=== PATIENT | male | born 1935 | race Hispanic/Latino ===

== ENCOUNTER 2016-08-02 17:21 | Inpatient (IN) | payer MEDICARE ==
[2016-08-02] MEDS ORDERED: Albuterol-Ipratrop 3 mg / 0.5 (3 ml) UD ONE (17:44)
[2016-08-02] MEDS ORDERED: cefTRIAXone IV 1 gm in Dextros 50 ML IV STA (17:55)
[2016-08-02] MEDS ORDERED: Azithromycin 500mg/250ML NS 500 MG/250 ML BAG IV STA (17:55)
[2016-08-02 17:56] VITALS: BMI 36.1
[2016-08-02] MEDS ORDERED: Albuterol-Ipratrop 3 mg / 0.5 (3 ml) UD IH STA (17:56)
--- NOTE | 2016-08-02 18:24 | C.PDOC ---
History Of Present Illness The patient, a 80 y/o male whose PMHx includes COPD, presents to the ED for evaluation after being sent from his PMD's office. Patient states she fell and injured his right shoulder and upper back a couple days ago. Patient had also been experiencing cough and chest congestion, so he went to PMD today for evaluation. At the PMD's office, patient was coughing with production of thick, yellow-green sputum with a temperature of 101. Patient was also wheezing. Patient had visible shortness of breath with a respiratory rate of 20 and pulse ox of 90 on 4L O2. Patient has PMHx of trans-aortic valve replacement, and post- op left-sided chronic pleural effusion. 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 X-ray imaging was unsuccessful, so patient presents to the ED for further evaluation. Patient denies fever, chills, nausea, vomiting. Time Seen by Provider: 08/02/16 17:36 Chief Complaint (Nursing): Shortness Of Breath History Per: Patient History/Exam Limitations: no limitations Onset/Duration Of Symptoms: Hrs Current Symptoms Are (Timing): Still Present Associated Symptoms: Fever, Productive Cough Past Medical History Reviewed: Historical Data, Nursing Documentation, Vital Signs Vital Signs: Last Vital Signs Temp 99.1 F 08/02/16 20:46 Pulse 61 08/02/16 20:46 Resp 16 08/02/16 20:46 BP 124/56 L 08/02/16 20:46 Pulse Ox 95 08/02/16 20:46 - Medical History PMH: CHF, COPD Surgical History: Appendectomy, CABG, Cholecystectomy, Pacemaker Other Surgeries: TAVR - [facility] Procedures NEBULIZER THERAPY (04/02/07) RT & LT HEART ANGIOCARD (03/10/14) RT/LEFT HEART CARD CATH (03/10/14) Family History: States: Unknown Family Hx - Social History Hx Tobacco Use: No Hx Alcohol Use: No Hx Substance Use: No - Immunization History Hx Tetanus Toxoid Vaccination: Yes Hx Influenza Vaccination: Yes Hx Pneumococcal Vaccination: Yes Review Of Systems Except As Marked, All Systems Reviewed And Found Negative. Respiratory: Positive for: Cough, Wheezing, Other (+chest congestion ) Gastrointestinal: Negative for: Nausea, Vomiting Musculoskeletal: Positive for: Shoulder Pain (right), Back Pain (upper ) Physical Exam - Physical Exam Appears: Non-toxic, No Acute Distress Skin: Warm, Dry, Ecchymosis (over right scapular region ) Head: Atraumatic, Normacephalic Eye(s): bilateral: Normal Inspection, PERRL, EOMI Ear(s): Bilateral: Normal Nose: Normal, No Discharge Oral Mucosa: Moist Throat: Normal, No Erythema, No Exudate Neck: Supple Chest: Symmetrical, No Deformity, No Tenderness Cardiovascular: Rhythm Regular, No Murmur Respiratory: Decreased Breath Sounds (bilaterally ), No Rales, No Rhonchi, Wheezing (diffuse, inspiratory and expiratory ) Gastrointestinal/Abdominal: Soft, No Tenderness, No Guarding, No Rebound Back: Normal Inspection, No Vertebral Tenderness, No Paraspinal Tenderness Extremity: Normal ROM (right shoulder ), Capillary Refill (less than 2 seconds ) Neurological/Psych: Oriented x3, Normal Speech, Normal Cognition Gait: Steady ED Course And Treatment - Laboratory Results Result Diagrams: 08/02/16 18:18 08/02/16 18:18 Lab Interpretation: Abnormal (Mild anemia Hgb 10.8, Hct 33.7, BUN 30 with normal Cr. Bili and AST slightly elevated, ABG PO2 52, PCO2 51 with normal pH 7.44) ECG: Interpreted By Nv ECG Rhythm: Sinus Rhythm, R BBB ECG Interpretation: No Acute Changes O2 Sat by Pulse Oximetry: 88 (increased on O2) Pulse Ox Interpretation: Abnormal - Radiology CXR: Interpreted by Nv CXR Interpretation: Yes: Cardiomegaly, Other (chronic left pleural effusion) Progress Note: labs, CXR, EKG ordered and reviewed. Patient received Zithromax IV, Rocephin IV, and IV fluids. Reevaluation Time: 19:22 Reassessment Condition: Improved - Physician Consult Information Physician Contacted: Dieudonne Corbett Outcome Of Conversation: Case discussed with Dr Corbett. Patient to be admitted to hospital for cardiac evaluation and treatment of COPD exacerbation with lower respiratory infection. Case referred to Dr Reyna for ICU/ Pulmonary evaluation and Hospitalist for admission. Disposition - Disposition Disposition: HOSPITALIZED Disposition Time: 20:00 Condition: STABLE - POA Present On Arrival: None - Clinical Impression Clinical Impression: Chr obstructive pulmonary disease w/ acute lower respiratory infxn - Scribe Statement The provider has reviewed the documentation as recorded by the Scribe (Fatoumata Pena) Provider Attestation: All medical record entries made by the Scribe were at my direction and personally dictated by me. I have reviewed the chart and agree that the record accurately reflects my personal performance of the history, physical exam, medical decision making, and the department course for this patient. I have also personally directed, reviewed, and agree with the discharge instructions and disposition.
[2016-08-02 18:26] LABS: BASO % 0.8 % (0.0-2.0); EOS # 0.1 K/uL (0.0-0.7); EOS % 1.8 % (0.0-4.0); HEMATOCRIT 33.7 % (35.0-51.0); LYMPH # 0.8 K/uL (1.0-4.3); LYMPH % 12.4 % (20.0-40.0); MEAN CORPUSCULAR HEMOGLOBIN 30.1 pg (27.0-31.0); MEAN CORPUSCULAR HGB CONC 32.2 g/dL (33.0-37.0); MEAN PLATELET VOLUME 7.9 fL (7.2-11.7); MONO # 0.6 K/uL (0.0-0.8); MONO % 9.3 % (0.0-10.0); RED CELL DISTRIBUTION WIDTH 17.3 % (11.5-14.5); WHITE BLOOD COUNT 6.3 K/uL (4.8-10.8)
[2016-08-02 18:28] LABS: MEAN CELL VOLUME 93.5 fL (80.0-94.0)
[2016-08-02 18:29] LABS: CHLORIDE 89 mmol/L (98-107); POTASSIUM 4.6 mmol/L (3.6-5.2); SODIUM 133 mmol/L (132-148)
[2016-08-02 18:31] LABS: BILIRUBIN,TOTAL 1.8 mg/dL (0.2-1.3); CARBON DIOXIDE 34 mmol/L (22-30); GFR AFRICAN-AMERICAN > 60
[2016-08-02 18:32] LABS: ALB/GLOB RATIO 1.2 (1.0-2.1); ALKALINE PHOSPHATASE 64 U/L (38-126); ALT/SGPT 34 U/L (21-72); AST/SGOT 73 U/L (17-59); BLOOD UREA NITROGEN 30 mg/dL (9-20); CALCIUM 8.4 mg/dl (8.6-10.4); GLUCOSE,RANDOM 122 mg/dL (75-110); TOTAL PROTEIN 7.7 g/dL (6.3-8.3)
[2016-08-02 18:37] LABS: ABG ALLEN TEST POS; ARTERIAL BLOOD HGB O2 SAT 89.3 % (95.0-98.0); CARBOXYHEMOGLOBIN 1.7 % (0.5-1.5); DRAW SITE RRA; HHB 8.5 % (0.0-5.0); METHEMOGLOBIN 0.4 % (0.0-3.0)
[2016-08-02] MEDS ORDERED: cefTRIAXone IV 1 gm in Dextros 50 ML IVPB ONE (18:44)
[2016-08-02] MEDS ORDERED: Azithromycin 500mg/250ML NS 0 MG/0 ML BAG IVPB ONE (19:54)
[2016-08-02] MEDS ORDERED: Azithromycin 500mg/250ML NS 500 MG/250 ML BAG IVPB ONE (20:02)
--- NOTE | 2016-08-02 20:09 | CP.PCM.HP ---
<Arnoldo Peterson - Last Filed: 08/02/16 22:59> History of Present Illness - History of Present Illness History of Present Illness: CC: "difficulty breathing, fever, and cough" 80 M with PMH of CHF, COPD, s/p pacemaker/defibrillator, CAD with stents, CABG, valve replacement, HTN, HLD presents to [facility] ED with complaint of difficulty breathing, fever, and cough for 4 days. Patient stated that he has had worsening symptoms since about Sunday. 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 Patient stated that he never had these symptoms before but his stated that he was treated for bronchitis last year. Patient currently denying any pain. Patient sleeps at night with head elevated at about 30 degrees. He does not know when he had last ECHO. He can only ambulate 10-20 feet or 1 flight of stairs before getting fatigued. Admits to fever/chills, sob, palpitations, LE edema, cough. Denies cp, abd pain, n/v/d, constipation, incontinence, numbness/tingling. PMD: Dr. Plunkett Cardio: Dr. Donnelly Pulm: Dr. 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 absent: Headache - EENT Eyes: absent: Diplopia, Discharge, Dry Eye Ears: absent: Decreased Hearing, Ear Discharge, Ear Pain Nose/Mouth/Throat: absent: Nasal Congestion, Nasal Discharge, Nose Pain - Cardiovascular Cardiovascular: Dyspnea, Dyspnea on Exertion, Edema, Palpitations. absent: Chest Pain, Chest Pain at Rest, Chest Pain with Activity - Respiratory Respiratory: Cough, Dyspnea, Dyspnea on Exertion, Wheezing. absent: Hemoptysis - Gastrointestinal Gastrointestinal: absent: Constipation, Diarrhea, Fecal Incontinence, Nausea, Vomiting - Genitourinary Genitourinary: absent: Change in Urinary Stream, Difficulty Urinating, Dysuria - Musculoskeletal Musculoskeletal: absent: Arthralgias, Myalgias, Numbness, Tingling - Integumentary Integumentary: absent: Bleeding Lesions, Changing Lesions, Lesions, New Lesions , Pruritus - Neurological Neurological: Weakness. absent: Dizziness, Numbness, Loss of Vision, Sensory Deficit, Syncope, Tingling, Tremor, Vertigo - Psychiatric Psychiatric: absent: Anxiety, Depression, Homicidal Ideation, Suicidal Ideation - Endocrine Endocrine: Fatigue, Palpitations. absent: Polydipsia, Polyphagia, Polyuria - Hematologic/Lymphatic Hematologic: absent: Easy Bleeding, Easy Bruising, Lymphadenopathy Past Patient History - Past Social History Smoking Status: Former Smoker - CARDIAC Hx Congestive Heart Failure: Yes - PULMONARY Hx Chronic Obstructive Pulmonary Disease (COPD): Yes - MUSCULOSKELETAL/RHEUMATOLOGICAL Hx Falls: No - PSYCHIATRIC Hx Substance Use: No - SURGICAL HISTORY Hx Appendectomy: Yes Hx Cholecystectomy: Yes Hx Coronary Artery Bypass Graft: Yes - ANESTHESIA Hx Anesthesia: Yes Hx Anesthesia Reactions: No Hx Malignant Hyperthermia: No Meds Allergies/Adverse Reactions: Allergies Allergy/AdvReac Type Severity Reaction Status Date / Time No Known Allergies Allergy Verified 08/02/16 17:53 Physical Exam - Constitutional Appears: No Acute Distress - Head Exam Head Exam: ATRAUMATIC, NORMOCEPHALIC - Eye Exam Eye Exam: EOMI, Normal appearance Pupil Exam: PERRL - ENT Exam ENT Exam: Mucous Membranes Moist - Neck Exam Neck exam: Positive for: Normal Inspection - Respiratory Exam Respiratory Exam: Clear to Auscultation Bilateral, NORMAL BREATHING PATTERN - Cardiovascular Exam Cardiovascular Exam: REGULAR RHYTHM, +S1, +S2 - GI/Abdominal Exam GI & Abdominal Exam: Normal Bowel Sounds, Soft. absent: Distended, Guarding, Rebound, Rigid, Tenderness - Extremities Exam Extremities exam: Positive for: normal capillary refill, pedal edema, pedal pulses present - Back Exam Back exam: absent: CVA tenderness (L), CVA tenderness (R) - Neurological Exam Neurological exam: Alert, CN II-XII Intact, Oriented x3 - Psychiatric Exam Psychiatric exam: Normal Affect, Normal Mood - Skin Skin Exam: Dry, Intact, Normal Color, Warm Results - Vital Signs Recent Vital Signs: Last Vital Signs Temp 99.2 F 08/02/16 17:45 Pulse 76 08/02/16 17:45 Resp 20 08/02/16 18:51 BP 113/60 08/02/16 19:30 Pulse Ox 88 L 08/02/16 20:01 - Labs Result Diagrams: 08/02/16 18:18 08/02/16 18:18 Labs: Laboratory Results - last 24 hr 08/02/16 08/02/16 08/02/16 18:18 18:18 18:30 WBC 6.3 RBC 3.60 L Hgb 10.8 L D Hct 33.7 L MCV 93.5 D MCH 30.1 MCHC 32.2 L RDW 17.3 H Plt Count 208 MPV 7.9 Neut % (Auto) 75.7 H Lymph % (Auto) 12.4 L [place] % (Auto) 9.3 Eos % (Auto) 1.8 Baso % (Auto) 0.8 Neut # 4.8 Lymph # 0.8 L [place] # 0.6 Eos # 0.1 Baso # 0.0 Puncture Site Rra pCO2 51 H pO2 52 L HCO3 31.9 H ABG pH 7.44 ABG Total CO2 36.2 H ABG O2 Saturation 91.3 L ABG Base Excess 9.1 H ABG Hemoglobin 10.6 L ABG Carboxyhemoglobin 1.7 H POC ABG HHb (Measured) 8.5 H ABG Methemoglobin 0.4 Yahir Test Pos A-a O2 Difference 55.0 Respiratory Index 1.1 Hgb O2 Saturation 89.3 L FiO2 24.0 Sodium 133 Potassium 4.6 Chloride 89 L Carbon Dioxide 34 H Anion Gap 15 BUN 30 H Creatinine 1.1 Est GFR ( Amer) > 60 Est GFR (Non-Af Amer) > 60 Random Glucose 122 H Calcium 8.4 L Total Bilirubin 1.8 H AST 73 H D ALT 34 Alkaline Phosphatase 64 Total Protein 7.7 Albumin 4.1 Globulin 3.5 Albumin/Globulin Ratio 1.2 Assessment & Plan - Assessment and Plan (Free Text) Plan: 1. Dyspnea CHF exacerbation vs COPD exacerbation Telemetry KYA x 3 Cardio consult, Dr. Corbett, help appreciated Pulm consult, Dr. Reyna, help appreciated ECHO CXR Tylenol 650 mg PO Q6H PRN Duoneb 3 ml INH RQ6 Azithromycin 500 mg IVPB daily Rocephin 1 gm IVPB Q12H Lasix 40 mg PO daily Robitussin 200 mg PO Q4H PRN Solu-medrol 40 mg IVP Q8H Theophylline 200 mg PO daily Blood culture High flow O2 via NC HTN Lasix 40 mg PO daily CAD with stents Plavix 75 mg PO daily HLD [place] 3 1 gm PO BID Crestor 5 mg PO HS Hypothyroidism f/u TSH/T4 Gout Allopurinol 300 mg PO daily Prophylactic measures Lovenox 40 mg SC daily Scds contraindicated Protonix 40 mg IVP daily HHD <Robert Johnson - Last Filed: 08/03/16 06:19> Results - Vital Signs Recent Vital Signs: Last Vital Signs Temp 98 F 08/03/16 04:50 Pulse 61 08/03/16 05:20 Resp 20 08/03/16 04:50 BP 108/64 08/03/16 04:50 Pulse Ox 98 08/03/16 04:50 - Labs Result Diagrams: 08/02/16 18:18 08/02/16 18:18 Labs: Laboratory Results - last 24 hr 08/02/16 08/02/16 08/02/16 21:43 22:56 23:11 POC Glucose (mg/dL) 130 H Hemoglobin A1c 6.0 Total Creatine Kinase CK-MB (Mass) Troponin I, Quant Thyroxine (T4) TSH 3rd Generation Influenza Typ A,B (EIA) Negative for flu a/b 08/02/16 08/02/16 23:11 23:11 POC Glucose (mg/dL) Hemoglobin A1c Total Creatine Kinase 108 CK-MB (Mass) 0.71 Troponin I, Quant 0.0480 Thyroxine (T4) 5.55 TSH 3rd Generation 2.02 Influenza Typ A,B (EIA) Assessment & Plan - Date & Time Date: 08/03/16 (I have seen and examined the patient. I agree with the findings and plan of care as documented by Dr. Peterson. Patient with dyspnea , COPD exacerbation. Suspected pneumonia. Azithromycin and Rocepin for now. Check blood cultures. Consult to Pulm. Bipap. Solumedrol. Also with history of CAD. Consult to cardio. Continue home meds. Monitor for acute changes.) Time: 06:17 Attending/Attestation - Attestation I have personally seen and examined this patient.: Yes I have fully participated in the care of the patient.: Yes I have reviewed all pertinent clinical information: Yes
[2016-08-02 21:13] LABS: RBC URINE < 1 /hpf (0-3); URINE BILIRUBIN NEGATIVE (NEGATIVE); URINE BLOOD NEGATIVE (NEGATIVE); URINE COLOR Yellow (YELLOW); URINE GLUCOSE (UA) NORMAL (Normal); URINE KETONE NEGATIVE (NEGATIVE); URINE LEUKOCYTE ESTERASE NEG Leu/uL (Negative); URINE PROTEIN NEGATIVE (NEGATIVE)
[2016-08-02] MEDS: Azithromycin 500 MG in Sodium Chloride 0.9% 250 ML IVPB SCH (21:32)
[2016-08-02] MEDS: MethylPREDNISolone 40 mg Vial IVP SCH (21:52)
[2016-08-02 23:58] LABS: T4 5.55 ug/dL (5.5-11.0)
[2016-08-03 00:06] LABS: THYROID STIMULATING HORMONE 2.02 mIU/L (0.46-4.68)
[2016-08-03] MEDS: Albuterol-Ipratrop 3 mg / 0.5 (3 ml) UD INH SCH ×4 (01:15→19:09)
[2016-08-03] MEDS: MethylPREDNISolone 40 mg Vial IVP SCH ×3 (05:22→21:38)
[2016-08-03 08:44] LABS: BASO % 0.4 % (0.0-2.0); EOS % 0.1 % (0.0-4.0); LYMPH # 0.4 K/uL (1.0-4.3); LYMPH % 8.1 % (20.0-40.0); MEAN CELL VOLUME 95.2 fL (80.0-94.0); MEAN CORPUSCULAR HEMOGLOBIN 30.4 pg (27.0-31.0); MEAN CORPUSCULAR HGB CONC 31.9 g/dL (33.0-37.0); MEAN PLATELET VOLUME 7.9 fL (7.2-11.7); MONO # 0.1 K/uL (0.0-0.8); MONO % 1.3 % (0.0-10.0); NRBC % 0.1 % (0.0-2.0); PLATELET COUNT 191 K/uL (130-400); WHITE BLOOD COUNT 5.1 K/uL (4.8-10.8)
[2016-08-03 08:51] LABS: CHLORIDE 90 mmol/L (98-107)
[2016-08-03 08:52] LABS: POTASSIUM 4.3 mmol/L (3.6-5.2); SODIUM 138 mmol/L (132-148)
[2016-08-03 08:54] LABS: ALB/GLOB RATIO 1.2 (1.0-2.1); ALKALINE PHOSPHATASE 63 U/L (38-126); AST/SGOT 41 U/L (17-59); BILIRUBIN,TOTAL 1.2 mg/dL (0.2-1.3); BLOOD UREA NITROGEN 27 mg/dL (9-20); CARBON DIOXIDE 37 mmol/L (22-30); GFR AFRICAN-AMERICAN > 60; GLUCOSE,RANDOM 162 mg/dL (75-110); TOTAL PROTEIN 7.1 g/dL (6.3-8.3)
[2016-08-03 08:55] LABS: ALT/SGPT 32 U/L (21-72); CALCIUM 8.5 mg/dl (8.6-10.4)
[2016-08-03 09:10] LABS: INR 1.1
[2016-08-03] MEDS: Enoxaparin 40 mg Syringe SC SCH (09:35)
[2016-08-03] MEDS: cefTRIAXone IV 1 gm in Dextros 50 ML IVPB SCH ×2 (09:36→20:41)
[2016-08-03] MEDS: Omega-3-Acid Ethyl Esters 1 GM Cap PO SCH ×2 (09:36→18:15)
[2016-08-03 09:40] LABS: NEUTROPHIL 90 % (50-75); TOTAL CELLS COUNTED 100
[2016-08-03 09:41] LABS: GIANT PLATELETS PRESENT; LARGE PLATELETS PRESENT
[2016-08-03] MEDS ORDERED: Theophylline 80 mg/15 ml Liq UD PO SCH (10:00)
--- NOTE | 2016-08-03 10:15 | CP.PCM.CON ---
<Alyssa Avila - Last Filed: 08/04/16 07:11> History of Present Illness - History of Present Illness History of Present Illness: Cardiology Consult Note Dr. Corbett Reason for consult: Shortness of breath HPI: This patient is a 80 year old male with past medical history of CHF with pacemaker/ICD, severe aortic stenosis with TAVR, pulm HTN, COPD, CAD with stents , CABG, who was admitted for shortness of breath. SOB started 10 days ago but has gotten worse since yesterday evening. Patient reports that about 10 days ago he fell on his back after "getting up too fast", and lost his balance. Patient did not have LOC and got up after 1-2 minutes without assistance. He reports a productive cough that has a brownish coloring. He reports that he has shortness of breath with exercise and at rest and denies chest pain currently, at the time of the fall or yesterday in the ED. Patient admits to orthopnea and inability to walk a block without getting SOB. He reports that he is able to ambulate stairs in his home (11 steps) before getting SOB. Denies SOB with dressing himself or other ADLs. Patient denies palpitations, chills, double vision, dysuria or urinary frequency. He reports fevers of 101 in the emergency department but denies any currently. PMHx: CHF with pacemaker/ICD, severe aortic stenosis with TAVR, pulm HTN, COPD, CAD with stents, CABG. Social: 60 pack year smoker (quit 25 years ago), denies drinking and drug use Fam Hx: unknown Allergies: none Surgeries: Cholecystectomy, appendectomy, bladder polyp removal, CABG, Stent placement, pacemaker/ICD placement, TAVR. Troponins: 0.0390, 0.0480. EKG: (08/02/16): Ventricular-paced rhythm. EKG: (03/10/14): accelerated junctional rhythm with frequent/consecutive PVCs and fusion complexes. Inferior infarct, age undetermined, T wave abnormality, consider lateral ischemia. Echo: (03/11/14): EF: 45% Cardiac Cath: (03/12/14): Severe aortic stenosis, patent coronary bypass graphs , severe pulmonary hypertension. Review of Systems - Constitutional Constitutional: absent: Chills, Fever, Weakness - EENT Eyes: absent: Blurred Vision Ears: absent: Dizziness - Cardiovascular Cardiovascular: Orthopnea, Pedal Edema. absent: Chest Pain, Dyspnea, Palpitations - Respiratory Respiratory: Cough. absent: Dyspnea, Hemoptysis, Wheezing - Gastrointestinal Gastrointestinal: absent: Abdominal Pain, Bloating, Constipation, Diarrhea, Nausea, Vomiting - Genitourinary Genitourinary: absent: Difficulty Urinating, Dysuria - Musculoskeletal Musculoskeletal: absent: Numbness, Tingling - Integumentary Integumentary: Change in Hair (on legs) Additional comments: +bruise on right upper back - Neurological Neurological: absent: Dizziness, Syncope Past Patient History - Past Medical History & Family History Past Medical History?: Yes - Past Social History Smoking Status: Former Smoker - CARDIAC Hx Cardiac Disorders: Yes Hx Congestive Heart Failure: Yes Hx Pacemaker: Yes - PULMONARY Hx Respiratory Disorders: Yes Hx Chronic Obstructive Pulmonary Disease (COPD): Yes Hx Pulmonary Edema: Yes - NEUROLOGICAL Hx Neurological Disorder: No - HEENT Hx HEENT Problems: No - ENDOCRINE/METABOLIC Hx Endocrine Disorders: Yes Hx Hypothyroidism: Yes - HEMATOLOGICAL/ONCOLOGICAL Hx Blood Disorders: No - INTEGUMENTARY Hx Dermatological Problems: No - MUSCULOSKELETAL/RHEUMATOLOGICAL Hx Musculoskeletal Disorders: Yes Hx Falls: Yes (fell at home 2 days ago) - GASTROINTESTINAL Hx Gastrointestinal Disorders: Yes - GENITOURINARY/GYNECOLOGICAL Hx Genitourinary Disorders: No - PSYCHIATRIC Hx Psychophysiologic Disorder: No Hx Substance Use: No - SURGICAL HISTORY Hx Surgeries: Yes Hx Appendectomy: Yes Hx Cholecystectomy: Yes Hx Coronary Artery Bypass Graft: Yes - ANESTHESIA Hx Anesthesia: Yes Hx Anesthesia Reactions: No Hx Malignant Hyperthermia: No Meds Home Medications: Home Medication List Medication Instructions Recorded Confirmed Type Azithromycin [Zithromax Tri-Saleem] 500 mg PO DAILY #3 tablet 08/09/16 Rx Cefpodoxime [Vantin] 200 mg PO Q12H #6 tab 08/09/16 Rx Methylprednisolone [Medrol Dose 4 mg PO DAILY #21 mg 08/09/16 Rx Pack (21 tabs)] Saccharomyces Boulardii [Florastor 1 cap PO TID #15 cap 08/09/16 Rx 33 mg-250 mg] Allergies/Adverse Reactions: Allergies Allergy/AdvReac Type Severity Reaction Status Date / Time No Known Allergies Allergy Verified 08/02/16 17:53 - Medications Medications: Current Medications Acetaminophen (Tylenol 325mg Tab) 650 mg PO Q6 PRN PRN Reason: Fever >100.4 F Albuterol/Ipratropium (Duoneb 3 Mg/0.5 Mg (3 Ml) Ud) 3 ml INH RQ6 [facility] Last Admin: 08/03/16 07:25 Dose: 3 ml Allopurinol (Zyloprim) 300 mg PO DAILY [facility] Last Admin: 08/03/16 09:35 Dose: 300 mg Clopidogrel Bisulfate (Plavix) 75 mg PO DAILY [facility] Last Admin: 08/03/16 09:36 Dose: 75 mg Enoxaparin Sodium (Lovenox) 40 mg SC DAILY [facility] Last Admin: 08/03/16 09:35 Dose: 40 mg Furosemide (Lasix) 40 mg PO DAILY [facility] Last Admin: 08/03/16 09:35 Dose: 40 mg Guaifenesin (Robitussin) 200 mg PO Q4H PRN PRN Reason: Cough and congestion Azithromycin 500 mg/ Sodium (Chloride) 250 mls @ 250 mls/hr IVPB Q24H [facility] Last Admin: 08/02/16 21:32 Dose: Not Given Ceftriaxone Sodium (Rocephin Iv 1 Gm Duplex) 50 mls @ 100 mls/hr IVPB Q12H [facility] Last Admin: 08/03/16 09:36 Dose: 100 mls/hr Methylprednisolone (Solu-Medrol) 40 mg IVP Q8 [facility] Stop: 08/04/16 22:01 Last Admin: 08/03/16 05:22 Dose: 40 mg Xcgcb-3-[id number] Ethyl Esters (Lovaza) 1 gm PO BID [facility] Last Admin: 08/03/16 09:36 Dose: 1 gm Pantoprazole Sodium (Protonix Inj) 40 mg IVP DAILY [facility] Last Admin: 08/03/16 09:35 Dose: 40 mg Rosuvastatin Calcium (Crestor) 5 mg PO HS [facility] Last Admin: 08/02/16 21:52 Dose: 5 mg Theophylline (Elixophyllin Liq) 200 mg PO DAILY [facility] Last Admin: 08/03/16 09:47 Dose: 200 mg Physical Exam - Constitutional Appears: No Acute Distress - Head Exam Head Exam: NORMAL INSPECTION, NORMOCEPHALIC - Eye Exam Eye Exam: EOMI, Normal appearance - ENT Exam ENT Exam: Mucous Membranes Moist - Neck Exam Neck exam: Positive for: Full Rom, Normal Inspection - Respiratory Exam Respiratory Exam: Decreased Breath Sounds, Clear to Auscultation Bilateral. absent: Accessory Muscle Use, Respiratory Distress - Cardiovascular Exam Cardiovascular Exam: REGULAR RHYTHM, +S1, +S2 - GI/Abdominal Exam GI & Abdominal Exam: Normal Bowel Sounds, Soft. absent: Distended, Tenderness - Extremities Exam Extremities exam: Positive for: full ROM, pedal edema. Negative for: tenderness - Back Exam Back exam: NORMAL INSPECTION - Neurological Exam Neurological exam: Alert, Oriented x3 - Psychiatric Exam Psychiatric exam: Normal Affect, Normal Mood - Skin Skin Exam: Dry, Normal Color, Warm Additional comments: +Large area of echymosis over right upper back, same color throughout, no open wounds. Results - Vital Signs Recent Vital Signs: Last Vital Signs Temp 97.5 F L 08/03/16 07:07 Pulse 71 08/03/16 07:07 Resp 20 08/03/16 07:07 BP 135/61 08/03/16 09:35 Pulse Ox 97 08/03/16 08:00 - Labs Result Diagrams: 08/03/16 08:09 08/03/16 08:09 Labs: Laboratory Results - last 24 hr 08/02/16 08/02/16 08/02/16 21:43 22:56 23:11 WBC RBC Hgb Hct MCV MCH MCHC RDW Plt Count MPV Neut % (Auto) Lymph % (Auto) [place] % (Auto) Eos % (Auto) Baso % (Auto) Neut # Lymph # [place] # Eos # Baso # Neutrophils % (Manual) Lymphocytes % (Manual) Monocytes % (Manual) Platelet Estimate Large Platelets Giant Platelets Hypochromasia (manual) Poikilocytosis (manual Anisocytosis (manual) PT INR APTT Sodium Potassium Chloride Carbon Dioxide Anion Gap BUN Creatinine Est GFR ( Amer) Est GFR (Non-Af Amer) POC Glucose (mg/dL) 130 H Random Glucose Hemoglobin A1c 6.0 Calcium Total Bilirubin AST ALT Alkaline Phosphatase Total Creatine Kinase CK-MB (Mass) Troponin I, Quant Total Protein Albumin Globulin Albumin/Globulin Ratio Thyroxine (T4) TSH 3rd Generation Influenza Typ A,B (EIA) Negative for flu a/b 08/02/16 08/02/16 08/03/16 23:11 23:11 06:11 WBC RBC Hgb Hct MCV MCH MCHC RDW Plt Count MPV Neut % (Auto) Lymph % (Auto) [place] % (Auto) Eos % (Auto) Baso % (Auto) Neut # Lymph # [place] # Eos # Baso # Neutrophils % (Manual) Lymphocytes % (Manual) Monocytes % (Manual) Platelet Estimate Large Platelets Giant Platelets Hypochromasia (manual) Poikilocytosis (manual Anisocytosis (manual) PT INR APTT Sodium Potassium Chloride Carbon Dioxide Anion Gap BUN Creatinine Est GFR ( Amer) Est GFR (Non-Af Amer) POC Glucose (mg/dL) 186 H Random Glucose Hemoglobin A1c Calcium Total Bilirubin AST ALT Alkaline Phosphatase Total Creatine Kinase 108 CK-MB (Mass) 0.71 Troponin I, Quant 0.0480 Total Protein Albumin Globulin Albumin/Globulin Ratio Thyroxine (T4) 5.55 TSH 3rd Generation 2.02 Influenza Typ A,B (EIA) 08/03/16 08/03/16 08/03/16 08:09 08:09 08:09 WBC 5.1 RBC 3.57 L Hgb 10.9 L Hct 34.0 L MCV 95.2 H MCH 30.4 MCHC 31.9 L RDW 17.0 H Plt Count 191 MPV 7.9 Neut % (Auto) 90.1 H Lymph % (Auto) 8.1 L [place] % (Auto) 1.3 Eos % (Auto) 0.1 Baso % (Auto) 0.4 Neut # 4.6 Lymph # 0.4 L Surry # 0.1 Eos # 0.0 Baso # 0.0 Neutrophils % (Manual) 90 H Lymphocytes % (Manual) 8 L Monocytes % (Manual) 2 Platelet Estimate Normal Large Platelets Present Giant Platelets Present Hypochromasia (manual) Slight Poikilocytosis (manual Slight Anisocytosis (manual) Slight PT 12.5 H INR 1.1 APTT 30 Sodium 138 Potassium 4.3 Chloride 90 L Carbon Dioxide 37 H Anion Gap 15 BUN 27 H Creatinine 1.1 Est GFR ( Amer) > 60 Est GFR (Non-Af Amer) > 60 POC Glucose (mg/dL) Random Glucose 162 H Hemoglobin A1c Calcium 8.5 L Total Bilirubin 1.2 AST 41 ALT 32 Alkaline Phosphatase 63 Total Creatine Kinase 98 CK-MB (Mass) 0.89 Troponin I, Quant 0.0360 Total Protein 7.1 Albumin 3.9 Globulin 3.3 Albumin/Globulin Ratio 1.2 Thyroxine (T4) TSH 3rd Generation Influenza Typ A,B (EIA) Assessment & Plan (1) Dyspnea Assessment and Plan: 80 year old male with significant cardiac history admitted overnight for SOB. Acute SOB likely secondary to infectious process. Continue IV antibiotics. Patient has Hx of CHF now with orthopnea and HUFF. Will order repeat ECHO. Nuclear stress test in the AM. Troponins: 0.0390, 0.0480 CXR:(08/02/16) shows cardiomegaly with mild venous congestion. Left basilar airspace opacity which may represent effusion versus atelectasis versus infiltrate. EKG: (08/02/16): Ventricular-paced rhythm. EKG: (03/10/14): accelerated junctional rhythm with frequent/consecutive PVCs and fusion complexes. Inferior infarct, age undetermined, T wave abnormality, consider lateral ischemia. Echo: (03/11/14): EF: 45% Cardiac Cath: (03/12/14): Severe aortic stenosis, patent coronary bypass graphs , severe pulmonary hypertension. Meds: ContinueLasix 40 mg PO daily Start Losartan 25 mg PO daily Start Coreg 3.125 mg PO BID Status: Acute (2) CHF (congestive heart failure), NYHA class III Assessment and Plan: Patient follows with Dr. Donnelly as outpatient. With pacemaker/ICD BNP on admission 698. Last BNP on file was 373 on 07/2010. Echo: (03/11/14): EF: 45% f/u repeat ECHO Continue: Lasix 40 mg PO daily Start Losartan 25 mg PO daily Start Coreg 3.125 mg PO BID Status: Acute (3) CAD (coronary artery disease) Assessment and Plan: CAD with stents, CABG. Troponins: 0.0390, 0.0480. EKG: (08/02/16): Ventricular-paced rhythm. Cardiac Cath: (03/12/14): Severe aortic stenosis, patent coronary bypass graphs , severe pulmonary hypertension. Continue Plavix 75 mg PO daily Continue Crestor 5 mg PO daily Start Losartan 25 mg PO daily Start Coreg 3.125 mg PO BID Status: Acute (4) Aortic stenosis, severe Assessment and Plan: with TAVR Status: Acute (5) HTN (hypertension) Assessment and Plan: Continue Lasix 40 mg PO daily Start Losartan 25 mg PO daily Start Coreg 3.125 mg PO BID Status: Acute - Assessment and Plan (Free Text) Assessment: Discussed with Dr. Aric Avila, DO- PGY 2 <Dieudonne Corbett - Last Filed: 09/11/16 07:35> Results - Vital Signs Recent Vital Signs: Last Vital Signs Temp 98 F 08/09/16 07:00 Pulse 72 08/09/16 07:00 Resp 20 08/09/16 07:00 BP 130/62 08/09/16 09:17 Pulse Ox 99 08/09/16 07:00 - Labs Result Diagrams: 08/09/16 06:16 08/09/16 06:16 Attending/Attestation - Attestation I have personally seen and examined this patient.: Yes I have fully participated in the care of the patient.: Yes I have reviewed all pertinent clinical information: Yes Notes (Text): 09/11/16 07:34 Pt with procuctiuve cough stable hemodynamically trest copd and pneumonia abx
--- NOTE | 2016-08-03 10:36 | RAD ---
PROCEDURE: CHEST RADIOGRAPH, 1 VIEW HISTORY: Pneumonia COMPARISON: 03/10/2014 FINDINGS: LUNGS: Mild venous congestion. Left basilar airspace opacity which may represent effusion versus atelectasis versus infiltrate. Clinical correlation PLEURA: As above. CARDIOVASCULAR: Cardiomegaly. Left-sided pacemaker. Status post median sternotomy and CABG. OSSEOUS STRUCTURES: No significant abnormalities. VISUALIZED UPPER ABDOMEN: Normal. OTHER FINDINGS: None. IMPRESSION: No significant interval change.
[2016-08-03] MEDS ORDERED: Losartan 12.5 MG TAB PO SCH (11:15)
--- NOTE | 2016-08-03 12:56 | CT ---
CT chest without IV contrast Indication: Pleural effusion Technique: Contiguous axial images were obtained through the chest without intravenous contrast enhancement. Sagittal and coronal reconstructions were generated and reviewed. This CT exam was performed using 1 or more of the falling dose reduction techniques: Automated exposure control, adjustment of the MAA and/or kV according to patient size, and/or use of iterative reconstruction technique. Radiation dose (DLP): 918.89 MGy-cm. Comparison: Chest x-ray performed 08/02/16 Findings: Visualized portions of the inferior thyroid gland appear unremarkable. The unenhanced mediastinal and hilar vascular structures appear grossly unremarkable. Cardiomegaly. Postsurgical changes of the aorta. Left-sided AICD. Median sternotomy wires. Sub cm prevascular mediastinal lymph nodes, nonspecific. Bilateral dependent atelectasis. Small bilateral pleural effusions. No pneumothorax. 7 mm left lower lobe calcified granuloma. Limited visualization of the noncontrast upper abdomen appears grossly unremarkable. Degenerative changes. Impression: Small bilateral pleural effusions. Bilateral mild dependent atelectasis.
--- NOTE | 2016-08-03 15:33 | CARD ---
APPROVED REPORT EXAM: Two-dimensional and M-mode echocardiogram with Doppler and color Doppler. Other Information Quality : AverageRhythm : INDICATION Cardiac Disease: CAD Congestive Heart Failure COPD CABG, DEFIBRILLATOR RISK FACTORS Hypertension Hyperlipidemia 2D DIMENSIONS LVOT Diameter2.2 (1.8-2.4cm) M-Mode DIMENSIONS RVDd3.43 (2.1-3.2cm)Left Atrium (MM)5.16 (2.5-4.0cm) IVSd1.04 (0.7-1.1cm)Aortic Root3.34 (2.2-3.7cm) LVDd5.81 (4.0-5.6cm)Aortic Cusp Exc.2.00 (1.5-2.0cm) PWd0.95 (0.7-1.1cm)FS (%) 31 % LVDs4.03 (2.0-3.8cm)LVEF (%)57 (>50%) Aortic Valve AoV Peak Jhyohttq074.7cm/sAoV VTI40.6cmAO Peak GR.12mmHg LVOT Peak Hjkzkkjh08.8cm/sLVOT VTI19.04cmAO Mean GR.8mmHg [place]STILLO (VMAX)1.32js0JIP (VTI)1.70cm2 Mitral Valve MV E Jcpjdvob728.7cm/sMV A Wbmkrgwe927.1cm/sE/A ratio1.2 TDI E/Lateral E'0.0E/Medial E'0.0 Tricuspid Valve TR Peak Nogjujpu196ue/sTR Peak Gr.45baAdNSEY63smHp LEFT VENTRICLE The left ventricle is normal size. There is normal left ventricular wall thickness. The left ventricular ejection fraction is within the normal range. Mild septal hypokinesis Transmitral Doppler flow pattern is Grade I-abnormal relaxation pattern. RIGHT VENTRICLE The right ventricle is normal size. There is normal right ventricular wall thickness. The right ventricular systolic function is normal. There is a pacemaker lead in the right ventricle. ATRIA The left atrium is moderately dilated. The right atrium is mildly dilated. AORTIC VALVE The aortic valve is not well visualized. MITRAL VALVE The mitral valve is mildly thickened. Mitral regurgitation is mild. TRICUSPID VALVE There is mild tricuspid regurgitation. There is mild pulmonary hypertension. GREAT VESSELS The aortic root displays severe sclerocalcific changes of the aortic root. PERICARDIAL EFFUSION There is no pericardial effusion. <Conclusion> The left ventricle is normal size. There is normal left ventricular wall thickness. The left ventricular ejection fraction is within the normal range. Mild septal hypokinesis Transmitral Doppler flow pattern is Grade I-abnormal relaxation pattern. Mitral regurgitation is mild. There is mild tricuspid regurgitation. There is mild pulmonary hypertension. The aortic root displays severe sclerocalcific changes of the aortic root.
--- NOTE | 2016-08-03 16:35 | CP.PCM.PN ---
<Odin Pacheco - Last Filed: 08/04/16 06:36> Subjective - Date & Time of Evaluation Date of Evaluation: 08/03/16 Time of Evaluation: 11:08 - Subjective Subjective: Pt seen and examined. Pt reports that he is breathing much better today and feels much better. Pt reports cough has improved. Pt denies fever, chills, chest pain, nausea, and vomiting. Objective - Vital Signs/Intake and Output Vital Signs (last 24 hours): Temp Pulse Resp BP Pulse Ox 97.6 F 68 20 136/56 L 96 08/03/16 15:45 08/03/16 15:45 08/03/16 15:45 08/03/16 15:45 08/03/16 15:45 Intake and Output: 08/03/16 08/03/16 06:59 18:59 Intake Total 500 Balance 500 - Medications Medications: Current Medications Acetaminophen (Tylenol 325mg Tab) 650 mg PO Q6 PRN PRN Reason: Fever >100.4 F Albuterol/Ipratropium (Duoneb 3 Mg/0.5 Mg (3 Ml) Ud) 3 ml INH RQ6 [facility] Last Admin: 08/03/16 13:23 Dose: 3 ml Allopurinol (Zyloprim) 300 mg PO DAILY [facility] Last Admin: 08/03/16 09:35 Dose: 300 mg Carvedilol (Coreg) 3.125 mg PO BID [facility] Clopidogrel Bisulfate (Plavix) 75 mg PO DAILY [facility] Last Admin: 08/03/16 09:36 Dose: 75 mg Enoxaparin Sodium (Lovenox) 40 mg SC DAILY [facility] Last Admin: 08/03/16 09:35 Dose: 40 mg Furosemide (Lasix) 40 mg PO DAILY [facility] Last Admin: 08/03/16 09:35 Dose: 40 mg Guaifenesin (Robitussin) 200 mg PO Q4H PRN PRN Reason: Cough and congestion Azithromycin 500 mg/ Sodium (Chloride) 250 mls @ 250 mls/hr IVPB Q24H [facility] Last Admin: 08/02/16 21:32 Dose: Not Given Ceftriaxone Sodium (Rocephin Iv 1 Gm Duplex) 50 mls @ 100 mls/hr IVPB Q12H [facility] Last Admin: 08/03/16 09:36 Dose: 100 mls/hr Losartan Potassium (Cozaar) 25 mg PO DAILY [facility] Methylprednisolone (Solu-Medrol) 40 mg IVP Q8 [facility] Stop: 08/04/16 22:01 Last Admin: 08/03/16 14:07 Dose: 40 mg [id number] Ethyl Esters (Lovaza) 1 gm PO BID [facility] Last Admin: 08/03/16 09:36 Dose: 1 gm Pantoprazole Sodium (Protonix Inj) 40 mg IVP DAILY [facility] Last Admin: 08/03/16 09:35 Dose: 40 mg Rosuvastatin Calcium (Crestor) 5 mg PO HS [facility] Last Admin: 08/02/16 21:52 Dose: 5 mg Theophylline (Elixophyllin Liq) 200 mg PO DAILY [facility] Last Admin: 08/03/16 09:47 Dose: 200 mg - Labs Labs: 08/03/16 08:09 08/03/16 08:09 PT 12.5 SECONDS (9.7-12.2) H 08/03/16 08:09 INR 1.1 08/03/16 08:09 APTT 30 SECONDS (21-34) 08/03/16 08:09 - Constitutional Appears: No Acute Distress - Head Exam Head Exam: ATRAUMATIC, NORMOCEPHALIC - Eye Exam Eye Exam: EOMI, PERRL - ENT Exam ENT Exam: Mucous Membranes Moist. absent: Mucous Membranes Dry - Respiratory Exam Respiratory Exam: Clear to Ausculation Bilateral. absent: Rales, Rhonchi - Cardiovascular Exam Cardiovascular Exam: Gallop, Irregular Rhythm, +S1, +S2 - GI/Abdominal Exam GI & Abdominal Exam: Soft. absent: Tenderness - Extremities Exam Extremities Exam: Pedal Edema Additional comments: b/l lower extremity venous stasis - Neurological Exam Neurological Exam: Alert, Awake, Oriented x3 - Psychiatric Exam Psychiatric exam: Normal Affect, Normal Mood - Skin Skin Exam: Normal Color, Warm Assessment and Plan - Assessment and Plan (Free Text) Assessment: CHF Exacerbation: Trpoponins negative x 3 EKG - please see full report Pro-BNP 698 CXR- mild venous congestion, no significant interval changes (please see full report) Chest CT- mild bilateral pulmonary effusions (please see full report) Cardiology, Dr. Corbett, consulted. Help appreciated. Coreg 3.125 mg po bid Plavix 75 mg po qd Cozaar 25 mg po qd Cestor 5 mg po hs Lasix 40 mg po qd Pneumonia/Bronchitis: Duonebs q6h Rocephin 1 gm IV q24h Azithromycin 500 mg IV q24h Solumedrol 40 mg IV q8h Pulm, Dr. Patterson, consulted. Help appreciated. CAD: Plavix 75 mg po qd Lovaza 1 gm po bid HTN: Cozaar 25 mg po qd Cestor 5 mg po hs Hypercholesterolemia: Lovaza 1 gm po bid Cestor 5 mg po hs Prophylactic Measures: DVT: SCDs, Lovenox GI: Protonix 40 mgpo qd <Darrell Coker M - Last Filed: 08/05/16 15:36> Objective - Vital Signs/Intake and Output Vital Signs (last 24 hours): Temp Pulse Resp BP Pulse Ox 97.8 F 74 20 101/49 L 96 08/05/16 07:14 08/05/16 07:14 08/05/16 07:14 08/05/16 10:19 08/05/16 07:14 Intake and Output: 08/05/16 08/05/16 06:59 18:59 Intake Total 240 Balance 240 - Medications Medications: Current Medications Acetaminophen (Tylenol 325mg Tab) 650 mg PO Q6 PRN PRN Reason: Fever >100.4 F Albuterol/Ipratropium (Duoneb 3 Mg/0.5 Mg (3 Ml) Ud) 3 ml INH RQ6 [facility] Last Admin: 08/05/16 13:26 Dose: 3 ml Allopurinol (Zyloprim) 300 mg PO DAILY [facility] Last Admin: 08/05/16 10:20 Dose: 300 mg Clopidogrel Bisulfate (Plavix) 75 mg PO DAILY [facility] Last Admin: 08/05/16 10:20 Dose: 75 mg Enoxaparin Sodium (Lovenox) 40 mg SC DAILY [facility] Last Admin: 08/05/16 10:18 Dose: 40 mg Furosemide (Lasix) 40 mg PO DAILY [facility] Last Admin: 08/05/16 10:19 Dose: 40 mg Guaifenesin (Robitussin) 200 mg PO Q4H PRN PRN Reason: Cough and congestion Last Admin: 08/05/16 10:33 Dose: 200 mg Azithromycin 500 mg/ Sodium (Chloride) 250 mls @ 250 mls/hr IVPB Q24H [facility] Last Admin: 08/04/16 21:31 Dose: 250 mls/hr Ceftriaxone Sodium 2 gm/ (Sodium Chloride) 100 mls @ 100 mls/hr IVPB Q24H [facility] Losartan Potassium (Cozaar) 25 mg PO DAILY [facility] Last Admin: 08/05/16 10:18 Dose: 25 mg Methylprednisolone (Solu-Medrol) 40 mg IVP Q8 [facility] [id number] Ethyl Esters (Lovaza) 1 gm PO BID [facility] Last Admin: 08/05/16 10:25 Dose: 1 gm Pantoprazole Sodium (Protonix Inj) 40 mg IVP DAILY [facility] Last Admin: 08/05/16 10:18 Dose: 40 mg Rosuvastatin Calcium (Crestor) 5 mg PO HS [facility] Last Admin: 08/04/16 21:28 Dose: 5 mg Theophylline (Brian-24) 200 mg PO DAILY [facility] Last Admin: 08/05/16 10:25 Dose: 200 mg - Labs Labs: 08/05/16 07:15 08/05/16 07:15 PT 12.5 SECONDS (9.7-12.2) H 08/03/16 08:09 INR 1.1 08/03/16 08:09 APTT 30 SECONDS (21-34) 08/03/16 08:09 Attending/Attestation - Attestation I have personally seen and examined this patient.: Yes I have fully participated in the care of the patient.: Yes I have reviewed all pertinent clinical information, including history, physical exam and plan: Yes Notes (Text): 08/05/16 15:29 Patient was seen and examined at bedside with the resident Still complains of SOB Continue IV steroids and nebulizing treatment patient is also on IV antibiotics for pneumonia/bronchitis Pulmonary and cardiology is on board Discussed the plan of care with the resident and I agree with the above history and physical and assessment/plan by the resident.
--- NOTE | 2016-08-03 16:41 | CARD ---
APPROVED REPORT EKG Measurement Heart [id number] <Conclusion> Atrial sensed Biventricular paced rhythm Abnormal ECG
--- NOTE | 2016-08-03 19:44 | CP.PCM.PN ---
Subjective - Date & Time of Evaluation Date of Evaluation: 08/03/16 Time of Evaluation: 19:42 - Subjective Subjective: Patient is today feeling much better. He is able to sit up unable to complete a sentence. Cough is still noted, but better than yesterday, minimal wheezing noted. Leg swelling is better. Denies any nausea. On BiPAP, he was using the BiPAP last night good. Vital signs stable otherwise Objective - Vital Signs/Intake and Output Vital Signs (last 24 hours): Temp Pulse Resp BP Pulse Ox 97.6 F 68 20 136/56 L 96 08/03/16 15:45 08/03/16 15:45 08/03/16 15:45 08/03/16 15:45 08/03/16 15:45 Intake and Output: 08/03/16 08/04/16 18:59 06:59 Intake Total 500 Balance 500 Chest good air entry noted, regular heart sound Abdomen soft nontender. Extremities 1+ pedal edema - Medications Medications: Current Medications Acetaminophen (Tylenol 325mg Tab) 650 mg PO Q6 PRN PRN Reason: Fever >100.4 F Albuterol/Ipratropium (Duoneb 3 Mg/0.5 Mg (3 Ml) Ud) 3 ml INH RQ6 [facility] Last Admin: 08/03/16 19:09 Dose: 3 ml Allopurinol (Zyloprim) 300 mg PO DAILY [facility] Last Admin: 08/03/16 09:35 Dose: 300 mg Carvedilol (Coreg) 3.125 mg PO BID [facility] Last Admin: 08/03/16 18:22 Dose: Not Given Clopidogrel Bisulfate (Plavix) 75 mg PO DAILY [facility] Last Admin: 08/03/16 09:36 Dose: 75 mg Enoxaparin Sodium (Lovenox) 40 mg SC DAILY [facility] Last Admin: 08/03/16 09:35 Dose: 40 mg Furosemide (Lasix) 40 mg PO DAILY [facility] Last Admin: 08/03/16 09:35 Dose: 40 mg Guaifenesin (Robitussin) 200 mg PO Q4H PRN PRN Reason: Cough and congestion Azithromycin 500 mg/ Sodium (Chloride) 250 mls @ 250 mls/hr IVPB Q24H [facility] Last Admin: 08/02/16 21:32 Dose: Not Given Ceftriaxone Sodium (Rocephin Iv 1 Gm Duplex) 50 mls @ 100 mls/hr IVPB Q12H [facility] Last Admin: 08/03/16 09:36 Dose: 100 mls/hr Losartan Potassium (Cozaar) 25 mg PO DAILY [facility] Methylprednisolone (Solu-Medrol) 40 mg IVP Q8 [facility] Stop: 08/04/16 22:01 Last Admin: 08/03/16 14:07 Dose: 40 mg [id number] Ethyl Esters (Lovaza) 1 gm PO BID [facility] Last Admin: 08/03/16 18:15 Dose: 1 gm Pantoprazole Sodium (Protonix Inj) 40 mg IVP DAILY [facility] Last Admin: 08/03/16 09:35 Dose: 40 mg Rosuvastatin Calcium (Crestor) 5 mg PO HS [facility] Last Admin: 08/02/16 21:52 Dose: 5 mg Theophylline (Elixophyllin Liq) 200 mg PO DAILY [facility] Last Admin: 08/03/16 09:47 Dose: 200 mg - Labs Labs: 08/03/16 08:09 08/03/16 08:09 PT 12.5 SECONDS (9.7-12.2) H 08/03/16 08:09 INR 1.1 08/03/16 08:09 APTT 30 SECONDS (21-34) 08/03/16 08:09 Assessment and Plan (1) CHF (congestive heart failure), NYHA class III Status: Acute (2) Chr obstructive pulmonary disease w/ acute lower respiratory infxn Assessment & Plan: 80-year-old male with history of CAD coronary artery bypass grafting pacemaker ACD, history of aortic valva replacement percutaneous, recurrent shortness of breath, chronic bronchitis. Patient now admitted with the acute exacerbation of COPD and associated bronchitis. Possible fluid overload state improved with the Lasix. Currently on BiPAP. We will continue the BiPAP, reduced to taper the Solu-Medrol. Continue the antibiotic and will follow the patient CT scan of the chest showing evidence of mild bilateral pleural effusion, and atelectatic, nonspecific otherwise Status: Acute
--- NOTE | 2016-08-03 19:44 | CP.PCM.CON ---
History of Present Illness - History of Present Illness History of Present Illness: CC: "difficulty breathing, fever, and cough" 80 M with PMH of CHF, COPD, s/p pacemaker/defibrillator, CAD with stents, CABG, valve replacement, HTN, HLD presents to [facility] ED with complaint of difficulty breathing, fever, and cough for 4 days. Patient stated that he has had worsening symptoms since about Sunday. Today he went to his oil well service unit operator and he recommended that the patient come to the hospital for treatment. Patient stated that he never had these symptoms before but his stated that he was treated for bronchitis last year. Patient currently denying any pain. Patient sleeps at night with head elevated at about 30 degrees. He does not know when he had last ECHO. He can only ambulate 10-20 feet or 1 flight of stairs before getting fatigued. Admits to fever/chills, sob, palpitations, LE edema, cough. Denies cp, abd pain, n/v/d, constipation, incontinence, numbness/tingling. PMD: Dr. Plunkett Cardio: Dr. Donnelly Pulm: Dr. 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 Fever also noted, mucus production present. Chest tightness and wheezing noted. Poor appetite. Using oxygen, and CPAP at home. Denies any leg swelling. But the legs also mostly swollen. Patient takes a diabetic sudden home. He also uses oxygen Past Patient History - Past Medical History & Family History Past Medical History?: Yes - Past Social History Smoking Status: Former Smoker - CARDIAC Hx Cardiac Disorders: Yes Hx Congestive Heart Failure: Yes Hx Pacemaker: Yes - PULMONARY Hx Respiratory Disorders: Yes Hx Chronic Obstructive Pulmonary Disease (COPD): Yes Hx Pulmonary Edema: Yes - NEUROLOGICAL Hx Neurological Disorder: No - HEENT Hx HEENT Problems: No - ENDOCRINE/METABOLIC Hx Endocrine Disorders: Yes Hx Hypothyroidism: Yes - HEMATOLOGICAL/ONCOLOGICAL Hx Blood Disorders: No - INTEGUMENTARY Hx Dermatological Problems: No - MUSCULOSKELETAL/RHEUMATOLOGICAL Hx Musculoskeletal Disorders: Yes Hx Falls: Yes (fell at home 2 days ago) - GASTROINTESTINAL Hx Gastrointestinal Disorders: Yes - GENITOURINARY/GYNECOLOGICAL Hx Genitourinary Disorders: No - PSYCHIATRIC Hx Psychophysiologic Disorder: No Hx Substance Use: No - SURGICAL HISTORY Hx Surgeries: Yes Hx Appendectomy: Yes Hx Cholecystectomy: Yes Hx Coronary Artery Bypass Graft: Yes - ANESTHESIA Hx Anesthesia: Yes Hx Anesthesia Reactions: No Hx Malignant Hyperthermia: No Meds Allergies/Adverse Reactions: Allergies Allergy/AdvReac Type Severity Reaction Status Date / Time No Known Allergies Allergy Verified 08/02/16 17:53 - Medications Medications: Current Medications Acetaminophen (Tylenol 325mg Tab) 650 mg PO Q6 PRN PRN Reason: Fever >100.4 F Albuterol/Ipratropium (Duoneb 3 Mg/0.5 Mg (3 Ml) Ud) 3 ml INH RQ6 [facility] Last Admin: 08/03/16 19:09 Dose: 3 ml Allopurinol (Zyloprim) 300 mg PO DAILY [facility] Last Admin: 08/03/16 09:35 Dose: 300 mg Carvedilol (Coreg) 3.125 mg PO BID [facility] Last Admin: 08/03/16 18:22 Dose: Not Given Clopidogrel Bisulfate (Plavix) 75 mg PO DAILY [facility] Last Admin: 08/03/16 09:36 Dose: 75 mg Enoxaparin Sodium (Lovenox) 40 mg SC DAILY [facility] Last Admin: 08/03/16 09:35 Dose: 40 mg Furosemide (Lasix) 40 mg PO DAILY [facility] Last Admin: 08/03/16 09:35 Dose: 40 mg Guaifenesin (Robitussin) 200 mg PO Q4H PRN PRN Reason: Cough and congestion Azithromycin 500 mg/ Sodium (Chloride) 250 mls @ 250 mls/hr IVPB Q24H [facility] Last Admin: 08/02/16 21:32 Dose: Not Given Ceftriaxone Sodium (Rocephin Iv 1 Gm Duplex) 50 mls @ 100 mls/hr IVPB Q12H [facility] Last Admin: 05/11/17 09:36 Dose: 100 mls/hr Losartan Potassium (Cozaar) 25 mg PO DAILY [facility] Methylprednisolone (Solu-Medrol) 40 mg IVP Q8 [facility] Stop: 08/04/16 22:01 Last Admin: 08/03/16 14:07 Dose: 40 mg Awhek-[id number] Ethyl Esters (Lovaza) 1 gm PO BID [facility] Last Admin: 08/03/16 18:15 Dose: 1 gm Pantoprazole Sodium (Protonix Inj) 40 mg IVP DAILY [facility] Last Admin: 08/03/16 09:35 Dose: 40 mg Rosuvastatin Calcium (Crestor) 5 mg PO HS [facility] Last Admin: 08/02/16 21:52 Dose: 5 mg Theophylline (Elixophyllin Liq) 200 mg PO DAILY [facility] Last Admin: 08/03/16 09:47 Dose: 200 mg Physical Exam - Head Exam Head Exam: ATRAUMATIC Additional comments: Chest good air entry, but wheezing and rales noted, regular heart sound, nontender abdomen, pedal edema bilaterally noted Results - Vital Signs Recent Vital Signs: Last Vital Signs Temp 97.6 F 08/03/16 15:45 Pulse 68 08/03/16 15:45 Resp 20 08/03/16 15:45 BP 136/56 L 08/03/16 15:45 Pulse Ox 96 08/03/16 15:45 - Labs Result Diagrams: 08/06/16 06:40 08/06/16 06:40 Labs: Laboratory Results - last 24 hr 08/02/16 08/02/16 08/02/16 21:43 22:56 23:11 WBC RBC Hgb Hct MCV MCH MCHC RDW Plt Count MPV Neut % (Auto) Lymph % (Auto) Gilchrist % (Auto) Eos % (Auto) Baso % (Auto) Neut # Lymph # Gilchrist # Eos # Baso # Neutrophils % (Manual) Lymphocytes % (Manual) Monocytes % (Manual) Platelet Estimate Large Platelets Giant Platelets Hypochromasia (manual) Poikilocytosis (manual Anisocytosis (manual) PT INR APTT Sodium Potassium Chloride Carbon Dioxide Anion Gap BUN Creatinine Est GFR ( Amer) Est GFR (Non-Af Amer) POC Glucose (mg/dL) 130 H Random Glucose Hemoglobin A1c 6.0 Calcium Total Bilirubin AST ALT Alkaline Phosphatase Total Creatine Kinase CK-MB (Mass) Troponin I, Quant Total Protein Albumin Globulin Albumin/Globulin Ratio Thyroxine (T4) TSH 3rd Generation Influenza Typ A,B (EIA) Negative for flu a/b 08/02/16 08/02/16 08/03/16 23:11 23:11 06:11 WBC RBC Hgb Hct MCV MCH MCHC RDW Plt Count MPV Neut % (Auto) Lymph % (Auto) Gilchrist % (Auto) Eos % (Auto) Baso % (Auto) Neut # Lymph # Gilchrist # Eos # Baso # Neutrophils % (Manual) Lymphocytes % (Manual) Monocytes % (Manual) Platelet Estimate Large Platelets Giant Platelets Hypochromasia (manual) Poikilocytosis (manual Anisocytosis (manual) PT INR APTT Sodium Potassium Chloride Carbon Dioxide Anion Gap BUN Creatinine Est GFR ( Amer) Est GFR (Non-Af Amer) POC Glucose (mg/dL) 186 H Random Glucose Hemoglobin A1c Calcium Total Bilirubin AST ALT Alkaline Phosphatase Total Creatine Kinase 108 CK-MB (Mass) 0.71 Troponin I, Quant 0.0480 Total Protein Albumin Globulin Albumin/Globulin Ratio Thyroxine (T4) 5.55 TSH 3rd Generation 2.02 Influenza Typ A,B (EIA) 08/03/16 08/03/16 08/03/16 08:09 08:09 08:09 WBC 5.1 RBC 3.57 L Hgb 10.9 L Hct 34.0 L MCV 95.2 H MCH 30.4 MCHC 31.9 L RDW 17.0 H Plt Count 191 MPV 7.9 Neut % (Auto) 90.1 H Lymph % (Auto) 8.1 L Gilchrist % (Auto) 1.3 Eos % (Auto) 0.1 Baso % (Auto) 0.4 Neut # 4.6 Lymph # 0.4 L Gilchrist # 0.1 Eos # 0.0 Baso # 0.0 Neutrophils % (Manual) 90 H Lymphocytes % (Manual) 8 L Monocytes % (Manual) 2 Platelet Estimate Normal Large Platelets Present Giant Platelets Present Hypochromasia (manual) Slight Poikilocytosis (manual Slight Anisocytosis (manual) Slight PT 12.5 H INR 1.1 APTT 30 Sodium 138 Potassium 4.3 Chloride 90 L Carbon Dioxide 37 H Anion Gap 15 BUN 27 H Creatinine 1.1 Est GFR ( Amer) > 60 Est GFR (Non-Af Amer) > 60 POC Glucose (mg/dL) Random Glucose 162 H Hemoglobin A1c Calcium 8.5 L Total Bilirubin 1.2 AST 41 ALT 32 Alkaline Phosphatase 63 Total Creatine Kinase 98 CK-MB (Mass) 0.89 Troponin I, Quant 0.0360 Total Protein 7.1 Albumin 3.9 Globulin 3.3 Albumin/Globulin Ratio 1.2 Thyroxine (T4) TSH 3rd Generation Influenza Typ A,B (EIA) 08/03/16 08/03/16 11:07 16:25 WBC RBC Hgb Hct MCV MCH MCHC RDW Plt Count MPV Neut % (Auto) Lymph % (Auto) Gilchrist % (Auto) Eos % (Auto) Baso % (Auto) Neut # Lymph # Gilchrist # Eos # Baso # Neutrophils % (Manual) Lymphocytes % (Manual) Monocytes % (Manual) Platelet Estimate Large Platelets Giant Platelets Hypochromasia (manual) Poikilocytosis (manual Anisocytosis (manual) PT INR APTT Sodium Potassium Chloride Carbon Dioxide Anion Gap BUN Creatinine Est GFR ( Amer) Est GFR (Non-Af Amer) POC Glucose (mg/dL) 194 H 244 H Random Glucose Hemoglobin A1c Calcium Total Bilirubin AST ALT Alkaline Phosphatase Total Creatine Kinase CK-MB (Mass) Troponin I, Quant Total Protein Albumin Globulin Albumin/Globulin Ratio Thyroxine (T4) TSH 3rd Generation Influenza Typ A,B (EIA) Assessment & Plan (1) CHF (congestive heart failure), NYHA class III Assessment and Plan: Patient with a heart disease, history of heart failure, COPD, pleural effusion residual scarring, admitted with decompensated heart failure minimal, and also COPD exacerbation. Patient is responding to the treatment at this time, continue the BiPAP, oxygen , bronchial dilators, antibiotic, corticosteroids. And will follow the patient. Patient will get a CT scan of the chest and BiPAP Status: Acute Priority: Low (2) Chr obstructive pulmonary disease w/ acute lower respiratory infxn Status: Acute Priority: High
[2016-08-03] MEDS: Azithromycin 500 MG in Sodium Chloride 0.9% 250 ML IVPB SCH (21:30)
[2016-08-03] MEDS: guaiFENesin 200 mg/10 ml Syrup UD PO PRN (22:26)
[2016-08-04] MEDS: Albuterol-Ipratrop 3 mg / 0.5 (3 ml) UD INH SCH ×4 (01:10→20:56)
[2016-08-04] MEDS: MethylPREDNISolone 40 mg Vial IVP SCH ×3 (05:49→21:28)
[2016-08-04 06:33] LABS: BASO % 0.3 % (0.0-2.0); LYMPH # 0.5 K/uL (1.0-4.3); LYMPH % 3.9 % (20.0-40.0); MEAN CELL VOLUME 94.3 fL (80.0-94.0); MEAN CORPUSCULAR HGB CONC 31.8 g/dL (33.0-37.0); MEAN PLATELET VOLUME 8.1 fL (7.2-11.7); MONO # 0.3 K/uL (0.0-0.8); MONO % 2.7 % (0.0-10.0); PLATELET COUNT 212 K/uL (130-400); RED CELL DISTRIBUTION WIDTH 17.1 % (11.5-14.5); WHITE BLOOD COUNT 12.1 K/uL (4.8-10.8)
[2016-08-04 06:39] LABS: CHLORIDE 90 mmol/L (98-107); POTASSIUM 4.3 mmol/L (3.6-5.2); SODIUM 132 mmol/L (132-148)
[2016-08-04 06:41] LABS: ALB/GLOB RATIO 1.3 (1.0-2.1); ALKALINE PHOSPHATASE 61 U/L (38-126); AST/SGOT 25 U/L (17-59); BILIRUBIN,TOTAL 0.8 mg/dL (0.2-1.3); BLOOD UREA NITROGEN 41 mg/dL (9-20); CARBON DIOXIDE 31 mmol/L (22-30); GFR AFRICAN-AMERICAN > 60; TOTAL PROTEIN 6.2 g/dL (6.3-8.3)
[2016-08-04 06:42] LABS: ALT/SGPT 28 U/L (21-72); CALCIUM 7.8 mg/dl (8.6-10.4); GLUCOSE,RANDOM 168 mg/dL (75-110); MAGNESIUM 2.2 mg/dL (1.6-2.3); PHOSPHOROUS 5.1 mg/dL (2.5-4.5)
[2016-08-04 07:45] LABS: NEUTROPHIL 92 % (50-75); TOTAL CELLS COUNTED 100
[2016-08-04] MEDS: cefTRIAXone IV 1 gm in Dextros 50 ML IVPB SCH ×2 (08:50→20:47)
--- NOTE | 2016-08-04 10:04 | CP.PCM.PN ---
<Alyssa Avila - Last Filed: 08/04/16 10:01> Subjective - Date & Time of Evaluation Date of Evaluation: 08/04/16 Time of Evaluation: 09:00 - Subjective Subjective: Cardiology Progress Note- Dr. Corbett Patient seen and examined at bedside this AM. Patient informed me that he refused Coreg medication because it was discontinued in the past by Dr. Donnelly for episodes of low blood pressure. Patient state he continues to experience dry cough, but it is not productive. Admits to wheezing and lower extremity edema. Patient reports he has Stress Test done in December 2015 for cardio clearance prior to bladder surgery. He has no other complaints at this time, but is worried about going home and developing pneumonia. All other 12 point ROS was negative. Objective - Vital Signs/Intake and Output Vital Signs (last 24 hours): Temp Pulse Resp BP Pulse Ox 98.3 F 71 20 113/65 95 08/04/16 07:10 08/04/16 07:10 08/04/16 07:10 08/04/16 07:10 08/04/16 07:10 - Medications Medications: Current Medications Acetaminophen (Tylenol 325mg Tab) 650 mg PO Q6 PRN PRN Reason: Fever >100.4 F Albuterol/Ipratropium (Duoneb 3 Mg/0.5 Mg (3 Ml) Ud) 3 ml INH RQ6 [facility] Last Admin: 08/04/16 07:53 Dose: 3 ml Allopurinol (Zyloprim) 300 mg PO DAILY [facility] Last Admin: 08/03/16 09:35 Dose: 300 mg Clopidogrel Bisulfate (Plavix) 75 mg PO DAILY [facility] Last Admin: 08/03/16 09:36 Dose: 75 mg Enoxaparin Sodium (Lovenox) 40 mg SC DAILY [facility] Last Admin: 08/03/16 09:35 Dose: 40 mg Furosemide (Lasix) 40 mg PO DAILY [facility] Last Admin: 08/03/16 09:35 Dose: 40 mg Guaifenesin (Robitussin) 200 mg PO Q4H PRN PRN Reason: Cough and congestion Last Admin: 08/03/16 22:26 Dose: 200 mg Azithromycin 500 mg/ Sodium (Chloride) 250 mls @ 250 mls/hr IVPB Q24H [facility] Last Admin: 08/03/16 21:30 Dose: 250 mls/hr Ceftriaxone Sodium (Rocephin Iv 1 Gm Duplex) 50 mls @ 100 mls/hr IVPB Q12H [facility] Last Admin: 08/04/16 08:50 Dose: 100 mls/hr Losartan Potassium (Cozaar) 25 mg PO DAILY [facility] Methylprednisolone (Solu-Medrol) 40 mg IVP Q8 [facility] Stop: 08/04/16 22:01 Last Admin: 08/04/16 05:49 Dose: 40 mg Bzmki-0-Hidw Ethyl Esters (Lovaza) 1 gm PO BID [facility] Last Admin: 08/03/16 18:15 Dose: 1 gm Pantoprazole Sodium (Protonix Inj) 40 mg IVP DAILY [facility] Last Admin: 08/03/16 09:35 Dose: 40 mg Rosuvastatin Calcium (Crestor) 5 mg PO HS [facility] Last Admin: 08/03/16 21:37 Dose: 5 mg Theophylline (Brian-24) 200 mg PO DAILY [facility] - Labs Labs: 08/04/16 06:23 08/04/16 06:23 PT 12.5 SECONDS (9.7-12.2) H 08/03/16 08:09 INR 1.1 08/03/16 08:09 APTT 30 SECONDS (21-34) 08/03/16 08:09 - Constitutional Appears: No Acute Distress - Head Exam Head Exam: NORMAL INSPECTION, NORMOCEPHALIC - Eye Exam Eye Exam: EOMI, Normal appearance - ENT Exam ENT Exam: Mucous Membranes Moist - Respiratory Exam Respiratory Exam: Decreased Breath Sounds, Wheezes. absent: Rales, Rhonchi - Cardiovascular Exam Cardiovascular Exam: REGULAR RHYTHM, +S1, +S2 - GI/Abdominal Exam GI & Abdominal Exam: Soft. absent: Distended, Tenderness - Extremities Exam Extremities Exam: Full ROM, Normal Inspection - Back Exam Back Exam: NORMAL INSPECTION - Neurological Exam Neurological Exam: Alert, Awake, Oriented x3 - Psychiatric Exam Psychiatric exam: Normal Affect, Normal Mood - Skin Skin Exam: Normal Color, Warm Assessment and Plan - Assessment and Plan (Free Text) Assessment: (1) Dyspnea Assessment and Plan: 80 year old male with significant cardiac history admitted overnight for SOB. Acute SOB likely secondary to infectious process. Continue IV antibiotics. Patient has Hx of CHF. Repeat ECHO shows normal LV function with EF 57%. Sclerocalcific aortic root. mild pulm HTN, mild MR. Nuclear stress test was cancelled since patient reports recent stress test done December of 2016 prior to urology surgery. Troponins: 0.0390, 0.0480 CXR:(08/02/16) shows cardiomegaly with mild venous congestion. Left basilar airspace opacity which may represent effusion versus atelectasis versus infiltrate. EKG: (08/02/16): Ventricular-paced rhythm. EKG: (03/10/14): accelerated junctional rhythm with frequent/consecutive PVCs and fusion complexes. Inferior infarct, age undetermined, T wave abnormality, consider lateral ischemia. Echo: (03/11/14): EF: 45% Cardiac Cath: (03/12/14): Severe aortic stenosis, patent coronary bypass graphs , severe pulmonary hypertension. Status: Acute (2) CHF (congestive heart failure), NYHA class III Assessment and Plan: Patient follows with Dr. Donnelly as outpatient. With pacemaker/ICD BNP on admission 698. Last BNP on file was 373 on 07/2010. Echo: (03/11/14): EF: 45% Repeat ECHO shows normal LV function with EF 57%. Sclerocalcific aortic root. Mild pulm HTN, mild MR. Meds: Continue Lasix 40 mg PO daily Continue Losartan 25 mg PO daily Stop Coreg 3.125 mg PO BID as patient reports a history of hypotension with this medication. Status: Acute (3) CAD (coronary artery disease) Assessment and Plan: CAD with stents, CABG. Troponins: 0.0390, 0.0480. EKG: (08/02/16): Ventricular-paced rhythm. Cardiac Cath: (03/12/14): Severe aortic stenosis, patent coronary bypass graphs , severe pulmonary hypertension. Continue Plavix 75 mg PO daily Continue Crestor 5 mg PO daily Continue Losartan 25 mg PO daily Stop Coreg 3.125 mg PO BID as patient reports a history of hypotension with this medication. Status: Acute (4) Aortic stenosis, severe Assessment and Plan: with TAVR Status: Acute (5) HTN (hypertension) Assessment and Plan: Continue Lasix 40 mg PO daily Continue Losartan 25 mg PO daily Stop Coreg 3.125 mg PO BID as patient reports a history of hypotension with this medication. Status: Acute - Assessment and Plan (Free Text) Assessment: Discussed with Dr. Aric Avila, DO- PGY 2 <Dieudonne Corbett Last Filed: 09/11/16 07:35> Objective - Vital Signs/Intake and Output Vital Signs (last 24 hours): Temp Pulse Resp BP Pulse Ox 98 F 72 20 130/62 99 08/09/16 07:00 08/09/16 07:00 08/09/16 07:00 08/09/16 09:17 08/09/16 07:00 - Labs Labs: 08/09/16 06:16 08/09/16 06:16 PT 12.5 SECONDS (9.7-12.2) H 08/03/16 08:09 INR 1.1 08/03/16 08:09 APTT 30 SECONDS (21-34) 08/03/16 08:09 Attending/Attestation - Attestation I have personally seen and examined this patient.: Yes I have fully participated in the care of the patient.: Yes I have reviewed all pertinent clinical information, including history, physical exam and plan: Yes Notes (Text): 09/11/16 07:35 continue pulmonary care no cp
[2016-08-04] MEDS: Enoxaparin 40 mg Syringe SC SCH (10:34)
[2016-08-04] MEDS: guaiFENesin 200 mg/10 ml Syrup UD PO PRN ×2 (10:34→17:00)
[2016-08-04] MEDS: Omega-3-Acid Ethyl Esters 1 GM Cap PO SCH ×2 (10:34→18:24)
[2016-08-04] MEDS: Theophylline 200mg ER 24 hrs Cap PO SCH (11:19)
--- NOTE | 2016-08-04 16:38 | CP.PCM.PN ---
<Odin Pacheco - Last Filed: 08/04/16 17:39> Subjective - Date & Time of Evaluation Date of Evaluation: 08/04/16 Time of Evaluation: 07:54 - Subjective Subjective: Pt seen and examined. Pt reports that he feels congested and still slightly short of breath. He reports that the BiPAP is uncomfortable for him to use. He denies fever, chills, chest pain, nausea, and vomiting. Objective - Vital Signs/Intake and Output Vital Signs (last 24 hours): Temp Pulse Resp BP Pulse Ox 98.3 F 64 20 143/54 L 95 08/04/16 07:10 08/04/16 13:00 08/04/16 07:10 08/04/16 10:35 08/04/16 07:10 Intake and Output: 08/04/16 08/04/16 06:59 18:59 Intake Total 510 Balance 510 - Medications Medications: Current Medications Acetaminophen (Tylenol 325mg Tab) 650 mg PO Q6 PRN PRN Reason: Fever >100.4 F Albuterol/Ipratropium (Duoneb 3 Mg/0.5 Mg (3 Ml) Ud) 3 ml INH RQ6 [facility] Last Admin: 08/04/16 13:20 Dose: 3 ml Allopurinol (Zyloprim) 300 mg PO DAILY [facility] Last Admin: 08/04/16 10:35 Dose: 300 mg Clopidogrel Bisulfate (Plavix) 75 mg PO DAILY [facility] Last Admin: 08/04/16 10:35 Dose: 75 mg Enoxaparin Sodium (Lovenox) 40 mg SC DAILY [facility] Last Admin: 08/04/16 10:34 Dose: 40 mg Furosemide (Lasix) 40 mg PO DAILY [facility] Last Admin: 08/04/16 10:35 Dose: 40 mg Guaifenesin (Robitussin) 200 mg PO Q4H PRN PRN Reason: Cough and congestion Last Admin: 08/04/16 10:34 Dose: 200 mg Azithromycin 500 mg/ Sodium (Chloride) 250 mls @ 250 mls/hr IVPB Q24H [facility] Last Admin: 08/03/16 21:30 Dose: 250 mls/hr Ceftriaxone Sodium (Rocephin Iv 1 Gm Duplex) 50 mls @ 100 mls/hr IVPB Q12H [facility] Last Admin: 08/04/16 08:50 Dose: 100 mls/hr Losartan Potassium (Cozaar) 25 mg PO DAILY [facility] Last Admin: 08/04/16 10:37 Dose: 25 mg Methylprednisolone (Solu-Medrol) 40 mg IVP Q8 [facility] Stop: 08/04/16 22:01 Last Admin: 08/04/16 13:40 Dose: 40 mg [id number] Ethyl Esters (Lovaza) 1 gm PO BID [facility] Last Admin: 08/04/16 10:34 Dose: 1 gm Pantoprazole Sodium (Protonix Inj) 40 mg IVP DAILY [facility] Last Admin: 08/04/16 10:34 Dose: 40 mg Rosuvastatin Calcium (Crestor) 5 mg PO HS [facility] Last Admin: 08/03/16 21:37 Dose: 5 mg Theophylline (Brian-24) 200 mg PO DAILY [facility] Last Admin: 08/04/16 11:19 Dose: 200 mg - Labs Labs: 08/04/16 06:23 08/04/16 06:23 PT 12.5 SECONDS (9.7-12.2) H 08/03/16 08:09 INR 1.1 08/03/16 08:09 APTT 30 SECONDS (21-34) 08/03/16 08:09 - Constitutional Appears: No Acute Distress - Head Exam Head Exam: ATRAUMATIC, NORMOCEPHALIC - Eye Exam Eye Exam: EOMI, PERRL - ENT Exam ENT Exam: Mucous Membranes Moist. absent: Mucous Membranes Dry - Respiratory Exam Respiratory Exam: Decreased Breath Sounds, Rhonchi, Wheezes - Cardiovascular Exam Cardiovascular Exam: +S1, +S2 - GI/Abdominal Exam GI & Abdominal Exam: Soft. absent: Distended, Guarding, Tenderness - Extremities Exam Extremities Exam: Pedal Edema - Neurological Exam Neurological Exam: Alert, Awake, Oriented x3 - Psychiatric Exam Psychiatric exam: Normal Affect, Normal Mood - Skin Additional comments: b/l lower extremity venous stasis Assessment and Plan - Assessment and Plan (Free Text) Assessment: CHF Exacerbation: Trpoponins negative x 3 EKG - please see full report Pro-BNP 698 CXR- mild venous congestion, no significant interval changes (please see full report) Chest CT- mild bilateral pulmonary effusions (please see full report) Cardiology, Dr. Corbett, consulted. Help appreciated. Coreg 3.125 mg po bid Plavix 75 mg po qd Cozaar 25 mg po qd Cestor 5 mg po hs Lasix 40 mg po qd Pneumonia/Bronchitis: Duonebs q6h Rocephin 1 gm IV q24h Azithromycin 500 mg IV q24h Solumedrol 40 mg IV q8h Theophylline 200 mg po qd Pulm, Dr. Patterson, consulted. Help appreciated. CAD: Plavix 75 mg po qd Lovaza 1 gm po bid HTN: Cozaar 25 mg po qd Cestor 5 mg po hs Hypercholesterolemia: Lovaza 1 gm po bid Cestor 5 mg po hs Prophylactic Measures: DVT: SCDs, Lovenox GI: Protonix 40 mg po qd <Darrell Coker M - Last Filed: 08/05/16 16:03> Objective - Vital Signs/Intake and Output Vital Signs (last 24 hours): Temp Pulse Resp BP Pulse Ox 97.7 F 75 20 108/60 96 08/05/16 15:58 08/05/16 15:58 08/05/16 15:58 08/05/16 15:58 08/05/16 15:58 Intake and Output: 08/05/16 08/05/16 06:59 18:59 Intake Total 240 Balance 240 - Medications Medications: Current Medications Acetaminophen (Tylenol 325mg Tab) 650 mg PO Q6 PRN PRN Reason: Fever >100.4 F Albuterol/Ipratropium (Duoneb 3 Mg/0.5 Mg (3 Ml) Ud) 3 ml INH RQ6 [facility] Last Admin: 08/05/16 13:26 Dose: 3 ml Allopurinol (Zyloprim) 300 mg PO DAILY [facility] Last Admin: 08/05/16 10:20 Dose: 300 mg Clopidogrel Bisulfate (Plavix) 75 mg PO DAILY [facility] Last Admin: 08/05/16 10:20 Dose: 75 mg Enoxaparin Sodium (Lovenox) 40 mg SC DAILY [facility] Last Admin: 08/05/16 10:18 Dose: 40 mg Furosemide (Lasix) 40 mg PO DAILY [facility] Last Admin: 08/05/16 10:19 Dose: 40 mg Guaifenesin (Robitussin) 200 mg PO Q4H PRN PRN Reason: Cough and congestion Last Admin: 08/05/16 10:33 Dose: 200 mg Azithromycin 500 mg/ Sodium (Chloride) 250 mls @ 250 mls/hr IVPB Q24H [facility] Last Admin: 08/04/16 21:31 Dose: 250 mls/hr Ceftriaxone Sodium 2 gm/ (Sodium Chloride) 100 mls @ 100 mls/hr IVPB Q24H [facility] Losartan Potassium (Cozaar) 25 mg PO DAILY [facility] Last Admin: 08/05/16 10:18 Dose: 25 mg Methylprednisolone (Solu-Medrol) 40 mg IVP Q8 [facility] Last Admin: 08/05/16 15:00 Dose: 40 mg [id number] Ethyl Esters (Lovaza) 1 gm PO BID [facility] Last Admin: 08/05/16 10:25 Dose: 1 gm Pantoprazole Sodium (Protonix Inj) 40 mg IVP DAILY [facility] Last Admin: 08/05/16 10:18 Dose: 40 mg Rosuvastatin Calcium (Crestor) 5 mg PO HS [facility] Last Admin: 08/04/16 21:28 Dose: 5 mg Theophylline (Brian-24) 200 mg PO DAILY [facility] Last Admin: 08/05/16 10:25 Dose: 200 mg - Labs Labs: 08/05/16 07:15 08/05/16 07:15 PT 12.5 SECONDS (9.7-12.2) H 08/03/16 08:09 INR 1.1 08/03/16 08:09 APTT 30 SECONDS (21-34) 08/03/16 08:09 Attending/Attestation - Attestation I have personally seen and examined this patient.: Yes I have fully participated in the care of the patient.: Yes I have reviewed all pertinent clinical information, including history, physical exam and plan: Yes Notes (Text): 08/05/16 16:03 Patient was seen and examined at bedside with the resident Patient that the breathing is slightly improved We will continue management for pneumonia with IV antibiotics We will continue diuretics as per recommendations of cardiology Pulmonary on board Continue IV steroids and nebulizing treatment I discussed the plan of care with the resident and agree with the above history and physical and assessment/plan but the resident.
--- NOTE | 2016-08-04 21:29 | CP.PCM.PN ---
Subjective - Date & Time of Evaluation Date of Evaluation: 08/04/16 Time of Evaluation: 21:29 - Subjective Subjective: She still having some episodes of cough, sneezing, and also cough associated with the chest discomfort. Mucus production minimally noted. Shortness of breath on exertion noted. No nausea vomiting Objective - Vital Signs/Intake and Output Vital Signs (last 24 hours): Temp Pulse Resp BP Pulse Ox 97.6 F 80 20 106/53 L 98 08/04/16 17:19 08/04/16 17:19 08/04/16 17:19 08/04/16 17:19 08/04/16 17:19 Chest minimal bilateral wheezing and rales noted. Regular heart sound. Abdomen soft. Next images 1+ pedal edema bilaterally noted Intake and Output: 08/04/16 08/05/16 18:59 06:59 Intake Total 510 Balance 510 - Medications Medications: Current Medications Acetaminophen (Tylenol 325mg Tab) 650 mg PO Q6 PRN PRN Reason: Fever >100.4 F Albuterol/Ipratropium (Duoneb 3 Mg/0.5 Mg (3 Ml) Ud) 3 ml INH RQ6 [facility] [place] Last Admin: 08/04/16 20:56 Dose: 3 ml Allopurinol (Zyloprim) 300 mg PO DAILY [facility] Last Admin: 08/04/16 10:35 Dose: 300 mg Clopidogrel Bisulfate (Plavix) 75 mg PO DAILY [facility] [place] Last Admin: 08/04/16 10:35 Dose: 75 mg Enoxaparin Sodium (Lovenox) 40 mg SC DAILY [facility] [place] Last Admin: 08/04/16 10:34 Dose: 40 mg Furosemide (Lasix) 40 mg PO DAILY [facility] [place] Last Admin: 08/04/16 10:35 Dose: 40 mg Guaifenesin (Robitussin) 200 mg PO Q4H PRN PRN Reason: Cough and congestion Last Admin: 08/04/16 17:00 Dose: 200 mg Azithromycin 500 mg/ Sodium (Chloride) 250 mls @ 250 mls/hr IVPB Q24H [facility] Last Admin: 08/03/16 21:30 Dose: 250 mls/hr Ceftriaxone Sodium (Rocephin Iv 1 Gm Duplex) 50 mls @ 100 mls/hr IVPB Q12H [facility] Last Admin: 08/04/16 20:47 Dose: 100 mls/hr Losartan Potassium (Cozaar) 25 mg PO DAILY [facility] [place] Last Admin: 08/04/16 10:37 Dose: 25 mg Methylprednisolone (Solu-Medrol) 40 mg IVP Q12 [facility] Stop: 08/06/16 22:01 Last Admin: 08/04/16 21:28 Dose: 40 mg Ipaau-0-Ipdd Ethyl Esters (Lovaza) 1 gm PO BID [facility] [place] Last Admin: 08/04/16 18:24 Dose: 1 gm Pantoprazole Sodium (Protonix Inj) 40 mg IVP DAILY [facility] [place] Last Admin: 08/04/16 10:34 Dose: 40 mg Rosuvastatin Calcium (Crestor) 5 mg PO HS [facility] Last Admin: 08/04/16 21:28 Dose: 5 mg Theophylline (Brian-24) 200 mg PO DAILY [facility] [place] Last Admin: 08/04/16 11:19 Dose: 200 mg - Labs Labs: 08/04/16 06:23 08/04/16 06:23 PT 12.5 SECONDS (9.7-12.2) H 08/03/16 08:09 INR 1.1 08/03/16 08:09 APTT 30 SECONDS (21-34) 08/03/16 08:09 Assessment and Plan (1) CHF (congestive heart failure), NYHA class III Assessment & Plan: Patient CT scan reviewed. No pneumonia noted, scarring in the lungs noted. COPD exacerbation. Minimal COPD bronchitis, and also associated with the decompensated heart failure. Responding to treatment at this time, continue the current treatment Status: Acute (2) Chr obstructive pulmonary disease w/ acute lower respiratory infxn Status: Acute
[2016-08-04] MEDS: Azithromycin 500 MG in Sodium Chloride 0.9% 250 ML IVPB SCH (21:31)
[2016-08-05] MEDS: Albuterol-Ipratrop 3 mg / 0.5 (3 ml) UD INH SCH ×4 (01:43→20:12)
[2016-08-05] MEDS: cefTRIAXone IV 1 gm in Dextros 50 ML IVPB SCH (07:01)
[2016-08-05 07:28] LABS: BASO % 0.1 % (0.0-2.0); HEMATOCRIT 33.1 % (35.0-51.0); LYMPH # 0.4 K/uL (1.0-4.3); LYMPH % 2.9 % (20.0-40.0); MEAN CELL VOLUME 93.9 fL (80.0-94.0); MONO # 0.4 K/uL (0.0-0.8); MONO % 2.6 % (0.0-10.0); PLATELET COUNT 238 K/uL (130-400); RED CELL DISTRIBUTION WIDTH 17.5 % (11.5-14.5); WHITE BLOOD COUNT 14.9 K/uL (4.8-10.8)
--- NOTE | 2016-08-05 07:35 | CP.PCM.PN ---
Subjective - Date & Time of Evaluation Date of Evaluation: 08/05/16 Time of Evaluation: 07:30 - Subjective Subjective: tolerating po no cp no sob Objective - Vital Signs/Intake and Output Vital Signs (last 24 hours): Temp Pulse Resp BP Pulse Ox 97.8 F 74 20 128/81 96 08/05/16 07:14 08/05/16 07:14 08/05/16 07:14 08/05/16 07:14 08/05/16 07:14 Intake and Output: 08/05/16 08/05/16 06:59 18:59 Intake Total 240 Balance 240 - Medications Medications: Current Medications Acetaminophen (Tylenol 325mg Tab) 650 mg PO Q6 PRN PRN Reason: Fever >100.4 F Albuterol/Ipratropium (Duoneb 3 Mg/0.5 Mg (3 Ml) Ud) 3 ml INH RQ6 [facility] Last Admin: 08/05/16 01:43 Dose: 3 ml Allopurinol (Zyloprim) 300 mg PO DAILY [facility] Last Admin: 08/04/16 10:35 Dose: 300 mg Clopidogrel Bisulfate (Plavix) 75 mg PO DAILY [facility] Last Admin: 08/04/16 10:35 Dose: 75 mg Enoxaparin Sodium (Lovenox) 40 mg SC DAILY [facility] Last Admin: 08/04/16 10:34 Dose: 40 mg Furosemide (Lasix) 40 mg PO DAILY [facility] Last Admin: 08/04/16 10:35 Dose: 40 mg Guaifenesin (Robitussin) 200 mg PO Q4H PRN PRN Reason: Cough and congestion Last Admin: 08/04/16 17:00 Dose: 200 mg Azithromycin 500 mg/ Sodium (Chloride) 250 mls @ 250 mls/hr IVPB Q24H [facility] Last Admin: 08/04/16 21:31 Dose: 250 mls/hr Ceftriaxone Sodium (Rocephin Iv 1 Gm Duplex) 50 mls @ 100 mls/hr IVPB Q12H [facility] Last Admin: 08/05/16 07:01 Dose: 100 mls/hr Losartan Potassium (Cozaar) 25 mg PO DAILY [facility] Last Admin: 08/04/16 10:37 Dose: 25 mg Methylprednisolone (Solu-Medrol) 40 mg IVP Q12 [facility] Stop: 08/06/16 22:01 Last Admin: 08/04/16 21:28 Dose: 40 mg Nyeof-0-Rmno Ethyl Esters (Lovaza) 1 gm PO BID [facility] Last Admin: 08/04/16 18:24 Dose: 1 gm Pantoprazole Sodium (Protonix Inj) 40 mg IVP DAILY [facility] Last Admin: 08/04/16 10:34 Dose: 40 mg Rosuvastatin Calcium (Crestor) 5 mg PO HS [facility] Last Admin: 08/04/16 21:28 Dose: 5 mg Theophylline (Brian-24) 200 mg PO DAILY [facility] Last Admin: 08/04/16 11:19 Dose: 200 mg - Labs Labs: 08/04/16 06:23 08/04/16 06:23 PT 12.5 SECONDS (9.7-12.2) H 08/03/16 08:09 INR 1.1 08/03/16 08:09 APTT 30 SECONDS (21-34) 08/03/16 08:09 - Constitutional Appears: Well - Head Exam Head Exam: ATRAUMATIC - Eye Exam Eye Exam: Normal appearance Pupil Exam: NORMAL ACCOMODATION - ENT Exam ENT Exam: Mucous Membranes Moist - Respiratory Exam Respiratory Exam: Wheezes - Cardiovascular Exam Cardiovascular Exam: REGULAR RHYTHM - GI/Abdominal Exam GI & Abdominal Exam: Normal Bowel Sounds - Exam External exam: absent: Ecchymosis - Extremities Exam Extremities Exam: absent: Calf Tenderness - Neurological Exam Neurological Exam: Alert, Awake, Oriented x3 - Psychiatric Exam Psychiatric exam: Normal Affect - Skin Skin Exam: Warm Assessment and Plan (1) Chr obstructive pulmonary disease w/ acute lower respiratory infxn Assessment & Plan: s/p tavr continue pulmonary tx abx continue less productive cough Status: Acute (2) Chronic congestive heart failure Status: Acute (3) Aortic stenosis, severe Status: Chronic
[2016-08-05 08:07] LABS: CHLORIDE 89 mmol/L (98-107); POTASSIUM 4.4 mmol/L (3.6-5.2); SODIUM 133 mmol/L (132-148)
[2016-08-05 08:09] LABS: ALB/GLOB RATIO 1.2 (1.0-2.1); ALKALINE PHOSPHATASE 56 U/L (38-126); ALT/SGPT 28 U/L (21-72); AST/SGOT 22 U/L (17-59); BILIRUBIN,TOTAL 0.7 mg/dL (0.2-1.3); BLOOD UREA NITROGEN 39 mg/dL (9-20); CARBON DIOXIDE 32 mmol/L (22-30); GFR AFRICAN-AMERICAN > 60; TOTAL PROTEIN 6.7 g/dL (6.3-8.3)
[2016-08-05 08:10] LABS: CALCIUM 7.8 mg/dl (8.6-10.4); GLUCOSE,RANDOM 164 mg/dL (75-110); MAGNESIUM 2.6 mg/dL (1.6-2.3); PHOSPHOROUS 3.9 mg/dL (2.5-4.5)
[2016-08-05 10:15] LABS: NEUTROPHIL 92 % (50-75); TOTAL CELLS COUNTED 100
[2016-08-05] MEDS: Enoxaparin 40 mg Syringe SC SCH (10:18)
[2016-08-05] MEDS: MethylPREDNISolone 40 mg Vial IVP SCH ×3 (10:19→21:30)
[2016-08-05] MEDS: Theophylline 200mg ER 24 hrs Cap PO SCH (10:25)
[2016-08-05] MEDS: Omega-3-Acid Ethyl Esters 1 GM Cap PO SCH ×2 (10:25→17:58)
[2016-08-05] MEDS: guaiFENesin 200 mg/10 ml Syrup UD PO PRN (10:33)
--- NOTE | 2016-08-05 12:51 | CP.PCM.CON ---
History of Present Illness - History of Present Illness History of Present Illness: INFECTIOUS DISEASE CONSULTATION EVA CASH MD, FACP 6T 651-A 08/05/2016 CHART REVIEWED PT EXAMINED CASE DISCUSSED WITH PMD TODAY 80 YEAR OLD WHITE CYMRO MALE, INITIALLY REFERRED BY DR MANDEL, WITH WHEEZING, PRODUCTIVE SPUTUM, SOB-could only walk 11 feet, AND ELEVATED TEMPERATURES WITH BRONCHIAL SPASMS. PT ADMITTED IN MY ABSENCE TO MEDICAL SERVICE AND CALLED OFFICIALLY ON MY RETURN TODAY. PMH HX: TAVR LEFT PLEURAL EFFUSION CABG, STENTS APPENDECTOMY CHOLECYCTECTOMY PACEMAKER CHF COPD BLADDER POLYPS HYPOTHYROIDISM ETC, ETC. NO KNOW ALLERGIES SMOKED OVER 25 YEARS AGO SOCIAL ETOH FAMILY HX NOT APPLICABLE Review of Systems - Review of Systems Systems not reviewed;Unavailable: Respiratory Distress - Constitutional Constitutional: Daytime Sleepiness, Fatigue, Malaise, Sleep Apnea - EENT Eyes: Irritation Ears: Decreased Hearing Nose/Mouth/Throat: Post Nasal Drip, Dry Mouth. absent: Mouth Lesions, Mouth Pain, Neck Mass - Cardiovascular Cardiovascular: Diaphoresis, Dyspnea on Exertion, Lightheadedness, Orthopnea, Paroxysmal Nocturnal Dyspnea - Respiratory Respiratory: Cough, Dyspnea, Dyspnea on Exertion, Wheezing, Chest Congestion, Excessive Mucous Production - Gastrointestinal Gastrointestinal: Bloating, Dyspepsia. absent: Abdominal Pain, Diarrhea, Loose Stools, Vomiting - Musculoskeletal Musculoskeletal: Arthralgias, Back Pain, Muscle Weakness, Myalgias - Integumentary Integumentary: Unusual Bruising, Other Additional comments: FELL AND INJURED HIS RIGHT SHOULDER AND BACK-CHECL OT THE ECCHYMOSIS - Neurological Neurological: Abnormal Hearing Past Patient History - Tetanus Immunizations Tetanus Immunization: Unknown - Past Medical History & Family History Past Medical History?: Yes - Past Social History Smoking Status: Former Smoker Chewing Tobacco Use: No Cigar Use: No Alcohol: Occasional Drugs: Denies Home Situation {Lives}: With Family - CARDIAC Hx Cardiac Disorders: Yes Hx Angina: Yes Hx Congestive Heart Failure: Yes Hx Hypercholesterolemia: Yes Hx Hypertension: Yes Hx Pacemaker: Yes - PULMONARY Hx Respiratory Disorders: Yes Hx Bronchitis: Yes Hx Chronic Obstructive Pulmonary Disease (COPD): Yes - NEUROLOGICAL Hx Neurological Disorder: No - HEENT Hx HEENT Problems: No - RENAL Hx Chronic Kidney Disease: No - ENDOCRINE/METABOLIC Hx Hypothyroidism: Yes - HEMATOLOGICAL/ONCOLOGICAL Hx Blood Disorders: No - INTEGUMENTARY Hx Dermatological Problems: No - MUSCULOSKELETAL/RHEUMATOLOGICAL Hx Musculoskeletal Disorders: Yes Hx Falls: Yes (fell at home 2 days ago) - GASTROINTESTINAL Hx Gastrointestinal Disorders: Yes - GENITOURINARY/GYNECOLOGICAL Hx Genitourinary Disorders: No Other/Comment: BLADDER POLPS - PSYCHIATRIC Hx Psychophysiologic Disorder: No Hx Substance Use: No - SURGICAL HISTORY Hx Surgeries: Yes Hx Appendectomy: Yes Hx Cholecystectomy: Yes Hx Coronary Artery Bypass Graft: Yes - ANESTHESIA Hx Anesthesia: Yes Hx Anesthesia Reactions: No Hx Malignant Hyperthermia: No Meds Allergies/Adverse Reactions: Allergies Allergy/AdvReac Type Severity Reaction Status Date / Time No Known Allergies Allergy Verified 08/02/16 17:53 - Medications Medications: Current Medications Acetaminophen (Tylenol 325mg Tab) 650 mg PO Q6 PRN PRN Reason: Fever >100.4 F Albuterol/Ipratropium (Duoneb 3 Mg/0.5 Mg (3 Ml) Ud) 3 ml INH RQ6 [facility] Last Admin: 08/05/16 08:09 Dose: 3 ml Allopurinol (Zyloprim) 300 mg PO DAILY [facility] Last Admin: 08/05/16 10:20 Dose: 300 mg Clopidogrel Bisulfate (Plavix) 75 mg PO DAILY [facility] Last Admin: 08/05/16 10:20 Dose: 75 mg Enoxaparin Sodium (Lovenox) 40 mg SC DAILY [facility] Last Admin: 08/05/16 10:18 Dose: 40 mg Furosemide (Lasix) 40 mg PO DAILY [facility] Last Admin: 08/05/16 10:19 Dose: 40 mg Guaifenesin (Robitussin) 200 mg PO Q4H PRN PRN Reason: Cough and congestion Last Admin: 08/05/16 10:33 Dose: 200 mg Azithromycin 500 mg/ Sodium (Chloride) 250 mls @ 250 mls/hr IVPB Q24H [facility] Last Admin: 08/04/16 21:31 Dose: 250 mls/hr Ceftriaxone Sodium (Rocephin Iv 1 Gm Duplex) 50 mls @ 100 mls/hr IVPB Q12H [facility] Last Admin: 08/05/16 07:01 Dose: 100 mls/hr Losartan Potassium (Cozaar) 25 mg PO DAILY [facility] Last Admin: 08/05/16 10:18 Dose: 25 mg Methylprednisolone (Solu-Medrol) 40 mg IVP Q12 [facility] Stop: 08/06/16 22:01 Last Admin: 05/13/17 10:19 Dose: 40 mg [id number]-[id number] Ethyl Esters (Lovaza) 1 gm PO BID [facility] Last Admin: 08/05/16 10:25 Dose: 1 gm Pantoprazole Sodium (Protonix Inj) 40 mg IVP DAILY [facility] Last Admin: 08/05/16 10:18 Dose: 40 mg Rosuvastatin Calcium (Crestor) 5 mg PO HS [facility] Last Admin: 08/04/16 21:28 Dose: 5 mg Theophylline (Brian-24) 200 mg PO DAILY [facility] Last Admin: 08/05/16 10:25 Dose: 200 mg Physical Exam - Constitutional Appears: Non-toxic - Head Exam Head Exam: ATRAUMATIC - Eye Exam Eye Exam: Normal appearance - ENT Exam ENT Exam: Mucous Membranes Moist - Respiratory Exam Respiratory Exam: Decreased Breath Sounds, Prolonged Expiratory Phase, Wheezes. absent: Rales - Cardiovascular Exam Cardiovascular Exam: REGULAR RHYTHM - GI/Abdominal Exam GI & Abdominal Exam: Normal Bowel Sounds - Rectal Exam Rectal Exam: Deferred - Back Exam Back exam: NORMAL INSPECTION - Neurological Exam Neurological exam: Alert, Oriented x3 - Skin Skin Exam: Dry, Warm Results - Vital Signs Recent Vital Signs: Last Vital Signs Temp 97.8 F 08/05/16 07:14 Pulse 74 08/05/16 07:14 Resp 20 08/05/16 07:14 BP 101/49 L 08/05/16 10:19 Pulse Ox 96 08/05/16 07:14 - Labs Result Diagrams: 08/05/16 07:15 08/05/16 07:15 Labs: Laboratory Results - last 24 hr 08/04/16 08/04/16 08/05/16 16:51 21:28 06:02 WBC RBC Hgb Hct MCV MCH MCHC RDW Plt Count MPV Neut % (Auto) Lymph % (Auto) [place]inson % (Auto) Eos % (Auto) Baso % (Auto) Neut # Lymph # Hutchinson # Eos # Baso # Neutrophils % (Manual) Band Neutrophils % Lymphocytes % (Manual) Monocytes % (Manual) Platelet Estimate Polychromasia Hypochromasia (manual) Poikilocytosis (manual Anisocytosis (manual) Microcytosis (manual) Macrocytosis (manual) Tear Drop Cells Ovalocytes Sodium Potassium Chloride Carbon Dioxide Anion Gap BUN Creatinine Est GFR ( Amer) Est GFR (Non-Af Amer) POC Glucose (mg/dL) 156 H 219 H 194 H Random Glucose Calcium Phosphorus Magnesium Total Bilirubin AST ALT Alkaline Phosphatase Total Protein Albumin Globulin Albumin/Globulin Ratio 08/05/16 08/05/16 07:15 07:15 WBC 14.9 H RBC 3.52 L Hgb 10.6 L Hct 33.1 L MCV 93.9 MCH 30.0 MCHC 32.0 L RDW 17.5 H Plt Count 238 MPV 8.0 Neut % (Auto) 94.4 H Lymph % (Auto) 2.9 L Hutchinson % (Auto) 2.6 Eos % (Auto) 0.0 Baso % (Auto) 0.1 Neut # 14.1 H Lymph # 0.4 L Hutchinson # 0.4 Eos # 0.0 Baso # 0.0 Neutrophils % (Manual) 92 H Band Neutrophils % 1 Lymphocytes % (Manual) 3 L Monocytes % (Manual) 4 Platelet Estimate Normal Polychromasia Slight Hypochromasia (manual) Slight Poikilocytosis (manual Slight Anisocytosis (manual) Slight Microcytosis (manual) Slight Macrocytosis (manual) Slight Tear Drop Cells Slight Ovalocytes Slight Sodium 133 Potassium 4.4 Chloride 89 L Carbon Dioxide 32 H Anion Gap 16 BUN 39 H Creatinine 1.0 Est GFR ( Amer) > 60 Est GFR (Non-Af Amer) > 60 POC Glucose (mg/dL) Random Glucose 164 H Calcium 7.8 L Phosphorus 3.9 Magnesium 2.6 H Total Bilirubin 0.7 AST 22 ALT 28 Alkaline Phosphatase 56 Total Protein 6.7 Albumin 3.7 Globulin 3.0 Albumin/Globulin Ratio 1.2 Assessment & Plan (1) Chr obstructive pulmonary disease w/ acute lower respiratory infxn Status: Acute Priority: High (2) Pneumonia Status: Acute (3) Pneumonia allergic Status: Acute Priority: Medium (4) CHF (congestive heart failure), NYHA class III Status: Acute Priority: Low (5) HTN (hypertension) Status: Chronic (6) Dyspnea Status: Acute Priority: Medium
--- NOTE | 2016-08-05 13:09 | CP.PCM.PN ---
<Daily Lagunas - Last Filed: 08/05/16 14:02> Subjective - Date & Time of Evaluation Date of Evaluation: 08/05/16 Time of Evaluation: 14:02 - Subjective Subjective: Medicine Progress Note Patient seen and examined. Patient continues to complain of cough and shortness of breath. Denies chest pain, palpitations, dizziness, and abdominal pain. Objective - Vital Signs/Intake and Output Vital Signs (last 24 hours): Temp Pulse Resp BP Pulse Ox 97.8 F 74 20 101/49 L 96 08/05/16 07:14 08/05/16 07:14 08/05/16 07:14 08/05/16 10:19 08/05/16 07:14 Intake and Output: 08/05/16 08/05/16 06:59 18:59 Intake Total 240 Balance 240 - Medications Medications: Current Medications Acetaminophen (Tylenol 325mg Tab) 650 mg PO Q6 PRN PRN Reason: Fever >100.4 F Albuterol/Ipratropium (Duoneb 3 Mg/0.5 Mg (3 Ml) Ud) 3 ml INH RQ6 [facility] Last Admin: 08/05/16 08:09 Dose: 3 ml Allopurinol (Zyloprim) 300 mg PO DAILY [facility] Last Admin: 08/05/16 10:20 Dose: 300 mg Clopidogrel Bisulfate (Plavix) 75 mg PO DAILY [facility] Last Admin: 08/05/16 10:20 Dose: 75 mg Enoxaparin Sodium (Lovenox) 40 mg SC DAILY [facility] Last Admin: 08/05/16 10:18 Dose: 40 mg Furosemide (Lasix) 40 mg PO DAILY [facility] Last Admin: 08/05/16 10:19 Dose: 40 mg Guaifenesin (Robitussin) 200 mg PO Q4H PRN PRN Reason: Cough and congestion Last Admin: 08/05/16 10:33 Dose: 200 mg Azithromycin 500 mg/ Sodium (Chloride) 250 mls @ 250 mls/hr IVPB Q24H [facility] Last Admin: 08/04/16 21:31 Dose: 250 mls/hr Ceftriaxone Sodium (Rocephin Iv 1 Gm Duplex) 50 mls @ 100 mls/hr IVPB Q12H [facility] Last Admin: 08/05/16 07:01 Dose: 100 mls/hr Losartan Potassium (Cozaar) 25 mg PO DAILY [facility] Last Admin: 08/05/16 10:18 Dose: 25 mg Methylprednisolone (Solu-Medrol) 40 mg IVP Q12 [facility] Stop: 08/06/16 22:01 Last Admin: 08/05/16 10:19 Dose: 40 mg [id number]-2-Qgjo Ethyl Esters (Lovaza) 1 gm PO BID [facility] Last Admin: 08/05/16 10:25 Dose: 1 gm Pantoprazole Sodium (Protonix Inj) 40 mg IVP DAILY [facility] Last Admin: 08/05/16 10:18 Dose: 40 mg Rosuvastatin Calcium (Crestor) 5 mg PO HS [facility] Last Admin: 08/04/16 21:28 Dose: 5 mg Theophylline (Brian-24) 200 mg PO DAILY [facility] Last Admin: 08/05/16 10:25 Dose: 200 mg - Labs Labs: 08/05/16 07:15 08/05/16 07:15 PT 12.5 SECONDS (9.7-12.2) H 08/03/16 08:09 INR 1.1 08/03/16 08:09 APTT 30 SECONDS (21-34) 08/03/16 08:09 - Constitutional Appears: Non-toxic, No Acute Distress - Head Exam Head Exam: ATRAUMATIC, NORMOCEPHALIC - Eye Exam Eye Exam: EOMI, Normal appearance - ENT Exam ENT Exam: Mucous Membranes Moist - Respiratory Exam Respiratory Exam: Rhonchi, NORMAL BREATHING PATTERN. absent: Accessory Muscle Use, Respiratory Distress - Cardiovascular Exam Cardiovascular Exam: REGULAR RHYTHM, +S1, +S2. absent: Tachycardia, Irregular Rhythm - GI/Abdominal Exam GI & Abdominal Exam: Soft, Normal Bowel Sounds. absent: Distended, Firm, Guarding, Rigid, Tenderness - Extremities Exam Extremities Exam: Pedal Edema (bilateral ) - Neurological Exam Neurological Exam: Alert, Awake, Oriented x3 - Psychiatric Exam Psychiatric exam: Normal Affect, Normal Mood - Skin Skin Exam: Dry, Intact, Normal Color, Warm Assessment and Plan - Assessment and Plan (Free Text) Assessment: CHF Exacerbation: Trpoponins negative x 3 EKG - please see full report Pro-BNP 698 CXR- mild venous congestion, no significant interval changes (please see full report) Chest CT- mild bilateral pulmonary effusions (please see full report) Cardiology, Dr. Corbett, consulted. Help appreciated. Coreg 3.125 mg po bid Plavix 75 mg po qd Cozaar 25 mg po qd Cestor 5 mg po hs Lasix 40 mg po qd Pneumonia/Bronchitis: ID Dr Dave consulted- help appreciated, will f/u recommendations Duonebs q6h Rocephin 2 gm IV q24h on 08/05 Azithromycin 500 mg IV q24h Solumedrol 40 mg IV q8h Theophylline 200 mg po qd Pulm, Dr. Patterson, consulted. Help appreciated. f/u legionella, mycoplasma, and procalcitonin influenza negative CAD: Plavix 75 mg po qd Lovaza 1 gm po bid HTN: Cozaar 25 mg po qd Cestor 5 mg po hs Hypercholesterolemia: Lovaza 1 gm po bid Cestor 5 mg po hs Prophylactic Measures: DVT: SCDs, Lovenox GI: Protonix 40 mg po qd <Darrell Coker M - Last Filed: 08/05/16 16:46> Objective - Vital Signs/Intake and Output Vital Signs (last 24 hours): Temp Pulse Resp BP Pulse Ox 97.7 F 75 20 108/60 96 08/05/16 15:58 08/05/16 15:58 08/05/16 15:58 08/05/16 15:58 08/05/16 15:58 Intake and Output: 08/05/16 08/05/16 06:59 18:59 Intake Total 240 Balance 240 - Medications Medications: Current Medications Acetaminophen (Tylenol 325mg Tab) 650 mg PO Q6 PRN PRN Reason: Fever >100.4 F Albuterol/Ipratropium (Duoneb 3 Mg/0.5 Mg (3 Ml) Ud) 3 ml INH RQ6 [facility] Last Admin: 08/05/16 13:26 Dose: 3 ml Allopurinol (Zyloprim) 300 mg PO DAILY [facility] Last Admin: 08/05/16 10:20 Dose: 300 mg Clopidogrel Bisulfate (Plavix) 75 mg PO DAILY [facility] Last Admin: 08/05/16 10:20 Dose: 75 mg Enoxaparin Sodium (Lovenox) 40 mg SC DAILY [facility] Last Admin: 08/05/16 10:18 Dose: 40 mg Furosemide (Lasix) 40 mg PO DAILY [facility] Last Admin: 08/05/16 10:19 Dose: 40 mg Guaifenesin (Robitussin) 200 mg PO Q4H PRN PRN Reason: Cough and congestion Last Admin: 08/05/16 10:33 Dose: 200 mg Azithromycin 500 mg/ Sodium (Chloride) 250 mls @ 250 mls/hr IVPB Q24H [facility] Last Admin: 08/04/16 21:31 Dose: 250 mls/hr Ceftriaxone Sodium 2 gm/ (Sodium Chloride) 100 mls @ 100 mls/hr IVPB Q24H [facility] Losartan Potassium (Cozaar) 25 mg PO DAILY [facility] Last Admin: 08/05/16 10:18 Dose: 25 mg Methylprednisolone (Solu-Medrol) 40 mg IVP Q8 [facility] Last Admin: 08/05/16 15:00 Dose: 40 mg Kwroq-7-Ynmp Ethyl Esters (Lovaza) 1 gm PO BID [facility] Last Admin: 08/05/16 10:25 Dose: 1 gm Pantoprazole Sodium (Protonix Inj) 40 mg IVP DAILY [facility] Last Admin: 08/05/16 10:18 Dose: 40 mg Rosuvastatin Calcium (Crestor) 5 mg PO HS [facility] Last Admin: 08/04/16 21:28 Dose: 5 mg Theophylline (Brian-24) 200 mg PO DAILY [facility] Last Admin: 08/05/16 10:25 Dose: 200 mg - Labs Labs: 08/05/16 07:15 08/05/16 07:15 PT 12.5 SECONDS (9.7-12.2) H 08/03/16 08:09 INR 1.1 08/03/16 08:09 APTT 30 SECONDS (21-34) 08/03/16 08:09 Attending/Attestation - Attestation I have personally seen and examined this patient.: Yes I have fully participated in the care of the patient.: Yes I have reviewed all pertinent clinical information, including history, physical exam and plan: Yes Notes (Text): 08/05/16 16:45 Patient was seen and examined at bedside with the resident Patient states that he still having cough and expectoration but it is improving Lower extremity edema is present but slight improvement noted We will continue diuretics and antibiotics Pulmonary, ID and cardiology on board Discussed the plan of care with the resident and agree with the above history and physical and assessment/plan by the resident. 08/05/16 16:46
[2016-08-05 20:11] LABS: LEGIONELLA AG URINE NEGATIVE (NEGATIVE)
[2016-08-05] MEDS: Azithromycin 500 MG in Sodium Chloride 0.9% 250 ML IVPB SCH (20:18)
[2016-08-05 20:27] LABS: PROCALCITONIN SERUM < 0.05 NG/ML (0.19-0.49)
[2016-08-05] MEDS: cefTRIAXone 2 GM in Sodium Chloride 0.9% 100 ML IVPB SCH (22:54)
[2016-08-06] MEDS: Albuterol-Ipratrop 3 mg / 0.5 (3 ml) UD INH SCH ×4 (01:35→19:44)
[2016-08-06] MEDS: MethylPREDNISolone 40 mg Vial IVP SCH ×3 (05:44→22:43)
[2016-08-06 06:47] LABS: BASO % 0.2 % (0.0-2.0); HEMATOCRIT 33.6 % (35.0-51.0); LYMPH # 0.4 K/uL (1.0-4.3); LYMPH % 3.3 % (20.0-40.0); MEAN CORPUSCULAR HEMOGLOBIN 29.9 pg (27.0-31.0); MEAN CORPUSCULAR HGB CONC 31.9 g/dL (33.0-37.0); MEAN PLATELET VOLUME 8.1 fL (7.2-11.7); MONO # 0.3 K/uL (0.0-0.8); MONO % 2.8 % (0.0-10.0); NRBC % 0.1 % (0.0-2.0); PLATELET COUNT 230 K/uL (130-400); RED CELL DISTRIBUTION WIDTH 17.3 % (11.5-14.5); WHITE BLOOD COUNT 12.1 K/uL (4.8-10.8)
[2016-08-06 07:08] LABS: CHLORIDE 93 mmol/L (98-107); SODIUM 136 mmol/L (132-148)
[2016-08-06 07:09] LABS: POTASSIUM 4.3 mmol/L (3.6-5.2)
[2016-08-06 07:11] LABS: ALB/GLOB RATIO 1.1 (1.0-2.1); ALKALINE PHOSPHATASE 58 U/L (38-126); ALT/SGPT 36 U/L (21-72); AST/SGOT 21 U/L (17-59); BILIRUBIN,TOTAL 0.1 mg/dL (0.2-1.3); BLOOD UREA NITROGEN 35 mg/dL (9-20); CARBON DIOXIDE 34 mmol/L (22-30); GFR AFRICAN-AMERICAN > 60; GLUCOSE,RANDOM 173 mg/dL (75-110); TOTAL PROTEIN 6.5 g/dL (6.3-8.3)
[2016-08-06 07:12] LABS: CALCIUM 8.1 mg/dl (8.6-10.4)
--- NOTE | 2016-08-06 07:13 | CP.PCM.PN ---
Subjective - Date & Time of Evaluation Date of Evaluation: 08/06/16 Time of Evaluation: 07:01 - Subjective Subjective: Pt BP stable no new complaints Objective - Vital Signs/Intake and Output Vital Signs (last 24 hours): Temp Pulse Resp BP Pulse Ox 98.2 F 61 20 127/59 L 97 08/05/16 23:05 08/06/16 06:18 08/06/16 06:18 08/06/16 06:18 08/06/16 06:18 Intake and Output: 08/06/16 08/06/16 06:59 18:59 Intake Total 830 Output Total 500 Balance 330 - Medications Medications: Current Medications Acetaminophen (Tylenol 325mg Tab) 650 mg PO Q6 PRN PRN Reason: Fever >100.4 F Albuterol/Ipratropium (Duoneb 3 Mg/0.5 Mg (3 Ml) Ud) 3 ml INH RQ6 [facility] Last Admin: 08/06/16 01:35 Dose: 3 ml Allopurinol (Zyloprim) 300 mg PO DAILY [facility] Last Admin: 08/05/16 10:20 Dose: 300 mg Clopidogrel Bisulfate (Plavix) 75 mg PO DAILY [facility] Last Admin: 08/05/16 10:20 Dose: 75 mg Enoxaparin Sodium (Lovenox) 40 mg SC DAILY [facility] Last Admin: 08/05/16 10:18 Dose: 40 mg Furosemide (Lasix) 40 mg PO DAILY [facility] Last Admin: 08/05/16 10:19 Dose: 40 mg Guaifenesin (Robitussin) 200 mg PO Q4H PRN PRN Reason: Cough and congestion Last Admin: 08/05/16 10:33 Dose: 200 mg Azithromycin 500 mg/ Sodium (Chloride) 250 mls @ 250 mls/hr IVPB Q24H [facility] Last Admin: 08/05/16 20:18 Dose: 250 mls/hr Ceftriaxone Sodium 2 gm/ (Sodium Chloride) 100 mls @ 100 mls/hr IVPB Q24H [facility] Last Admin: 08/05/16 22:54 Dose: 100 mls/hr Losartan Potassium (Cozaar) 25 mg PO DAILY [facility] Last Admin: 08/05/16 10:18 Dose: 25 mg Methylprednisolone (Solu-Medrol) 40 mg IVP Q8 [facility] Last Admin: 08/06/16 05:44 Dose: 40 mg Ewrjp-8-Lbhp Ethyl Esters (Lovaza) 1 gm PO BID [facility] Last Admin: 08/05/16 17:58 Dose: 1 gm Pantoprazole Sodium (Protonix Inj) 40 mg IVP DAILY [facility] Last Admin: 08/05/16 10:18 Dose: 40 mg Rosuvastatin Calcium (Crestor) 5 mg PO HS [facility] Last Admin: 08/05/16 21:30 Dose: 5 mg Theophylline (Brian-24) 200 mg PO DAILY [facility] Last Admin: 08/05/16 10:25 Dose: 200 mg - Labs Labs: 08/06/16 06:40 08/05/16 07:15 PT 12.5 SECONDS (9.7-12.2) H 08/03/16 08:09 INR 1.1 08/03/16 08:09 APTT 30 SECONDS (21-34) 08/03/16 08:09 - Constitutional Appears: Well - Head Exam Head Exam: NORMOCEPHALIC - Eye Exam Eye Exam: Normal appearance - ENT Exam ENT Exam: Mucous Membranes Moist - Respiratory Exam Respiratory Exam: Clear to Ausculation Bilateral, Wheezes - Cardiovascular Exam Cardiovascular Exam: REGULAR RHYTHM, Murmur - GI/Abdominal Exam GI & Abdominal Exam: Soft, Normal Bowel Sounds - Exam External exam: absent: Ecchymosis - Extremities Exam Extremities Exam: absent: Pedal Edema - Neurological Exam Neurological Exam: Awake - Skin Skin Exam: Dry Assessment and Plan (1) Chr obstructive pulmonary disease w/ acute lower respiratory infxn Assessment & Plan: Pt doing well no complaints continue abx discharge planning Status: Acute (2) Pneumonia Status: Acute (3) Aortic stenosis, severe Status: Chronic
[2016-08-06] MEDS: guaiFENesin 200 mg/10 ml Syrup UD PO PRN (09:01)
[2016-08-06 09:36] LABS: NEUTROPHIL 89 % (50-75); TOTAL CELLS COUNTED 100
[2016-08-06] MEDS: Omega-3-Acid Ethyl Esters 1 GM Cap PO SCH ×2 (09:49→18:07)
[2016-08-06] MEDS: Enoxaparin 40 mg Syringe SC SCH (09:49)
[2016-08-06] MEDS: Theophylline 200mg ER 24 hrs Cap PO SCH (10:05)
--- NOTE | 2016-08-06 13:33 | CP.PCM.PN ---
<Daily Lagunas - Last Filed: 08/06/16 13:31> Subjective - Date & Time of Evaluation Date of Evaluation: 08/06/16 Time of Evaluation: 08:20 - Subjective Subjective: Patient seen and examined this morning. Patient was feeling well and had no acute complaints. Patient states that his breathing has improved; however, he felt short of breath when he was walking with physical therapist yesterday. Patient denies fever, productive cough, chest pain, palpitations, and dizziness. Per pt, his lower leg edema has improved. Objective - Vital Signs/Intake and Output Vital Signs (last 24 hours): Temp Pulse Resp BP Pulse Ox 98.2 F 61 20 110/53 L 97 08/05/16 23:05 08/06/16 06:18 08/06/16 06:18 08/06/16 09:49 08/06/16 06:18 Intake and Output: 08/06/16 08/06/16 06:59 18:59 Intake Total 830 Output Total 500 Balance 330 - Medications Medications: Current Medications Acetaminophen (Tylenol 325mg Tab) 650 mg PO Q6 PRN PRN Reason: Fever >100.4 F Albuterol/Ipratropium (Duoneb 3 Mg/0.5 Mg (3 Ml) Ud) 3 ml INH RQ6 [facility] Last Admin: 08/06/16 08:04 Dose: 3 ml Allopurinol (Zyloprim) 300 mg PO DAILY [facility] Last Admin: 08/06/16 09:48 Dose: 300 mg Clopidogrel Bisulfate (Plavix) 75 mg PO DAILY [facility] Last Admin: 08/06/16 09:48 Dose: 75 mg Enoxaparin Sodium (Lovenox) 40 mg SC DAILY [facility] Last Admin: 08/06/16 09:49 Dose: 40 mg Furosemide (Lasix) 40 mg PO DAILY [facility] Last Admin: 08/06/16 09:49 Dose: 40 mg Guaifenesin (Robitussin) 200 mg PO Q4H PRN PRN Reason: Cough and congestion Last Admin: 08/06/16 09:01 Dose: 200 mg Azithromycin 500 mg/ Sodium (Chloride) 250 mls @ 250 mls/hr IVPB Q24H [facility] Last Admin: 08/05/16 20:18 Dose: 250 mls/hr Ceftriaxone Sodium 2 gm/ (Sodium Chloride) 100 mls @ 100 mls/hr IVPB Q24H [facility] Last Admin: 08/05/16 22:54 Dose: 100 mls/hr Losartan Potassium (Cozaar) 25 mg PO DAILY [facility] Last Admin: 08/06/16 09:49 Dose: 25 mg Methylprednisolone (Solu-Medrol) 40 mg IVP Q8 [facility] Last Admin: 08/06/16 13:18 Dose: 40 mg [id number] Ethyl Esters (Lovaza) 1 gm PO BID [facility] Last Admin: 08/06/16 09:49 Dose: 1 gm Pantoprazole Sodium (Protonix Inj) 40 mg IVP DAILY [facility] Last Admin: 08/06/16 09:48 Dose: 40 mg Rosuvastatin Calcium (Crestor) 5 mg PO HS [facility] Last Admin: 08/05/16 21:30 Dose: 5 mg Theophylline (Brian-24) 200 mg PO DAILY [facility] Last Admin: 08/06/16 10:05 Dose: 200 mg - Labs Labs: 08/06/16 06:40 08/06/16 06:40 PT 12.5 SECONDS (9.7-12.2) H 08/03/16 08:09 INR 1.1 08/03/16 08:09 APTT 30 SECONDS (21-34) 08/03/16 08:09 - Constitutional Appears: Non-toxic, No Acute Distress - Head Exam Head Exam: ATRAUMATIC, NORMOCEPHALIC - Eye Exam Eye Exam: EOMI, Normal appearance - ENT Exam ENT Exam: Mucous Membranes Moist - Neck Exam Neck Exam: Normal Inspection - Respiratory Exam Respiratory Exam: Rhonchi (mild bilateral bases), NORMAL BREATHING PATTERN. absent: Accessory Muscle Use, Chest Wall Tenderness, Respiratory Distress - Cardiovascular Exam Cardiovascular Exam: REGULAR RHYTHM, +S1, +S2 - GI/Abdominal Exam GI & Abdominal Exam: Soft, Normal Bowel Sounds. absent: Tenderness - Extremities Exam Extremities Exam: Pedal Edema. absent: Tenderness - Neurological Exam Neurological Exam: Alert, Awake, Normal Gait, Oriented x3 - Psychiatric Exam Psychiatric exam: Normal Affect, Normal Mood - Skin Skin Exam: Dry, Intact, Normal Color, Warm Assessment and Plan - Assessment and Plan (Free Text) Assessment: CHF Exacerbation: Continue current management, stable Troponins negative x 3 EKG - please see full report Pro-BNP 698 CXR- mild venous congestion, no significant interval changes (please see full report) Chest CT- mild bilateral pulmonary effusions (please see full report) Cardiology, Dr. Corbett, consulted. Help appreciated. Coreg 3.125 mg po bid Plavix 75 mg po qd Cozaar 25 mg po qd Cestor 5 mg po hs Lasix 40 mg po qd Pneumonia/Bronchitis: ID Dr Dave consulted- help appreciated, will f/u recommendations Duonebs q6h Rocephin 2 gm IV q24h on 08/05 Azithromycin 500 mg IV q24h Solumedrol 40 mg IV q8h Theophylline 200 mg po qd Pulm, Dr. Reyna, consulted. Help appreciated. legionella, mycoplasma negative influenza negative CAD: Plavix 75 mg po qd Lovaza 1 gm po bid HTN: Cozaar 25 mg po qd Cestor 5 mg po hs Hypercholesterolemia: Lovaza 1 gm po bid Cestor 5 mg po hs Prophylactic Measures: DVT: SCDs, Lovenox GI: Protonix 40 mg po qd <Darrell Coker - Last Filed: 08/06/16 14:24> Objective - Vital Signs/Intake and Output Vital Signs (last 24 hours): Temp Pulse Resp BP Pulse Ox 98.2 F 61 20 110/53 L 97 08/05/16 23:05 08/06/16 06:18 08/06/16 06:18 08/06/16 09:49 08/06/16 06:18 Intake and Output: 08/06/16 08/06/16 06:59 18:59 Intake Total 830 Output Total 500 Balance 330 - Medications Medications: Current Medications Acetaminophen (Tylenol 325mg Tab) 650 mg PO Q6 PRN PRN Reason: Fever >100.4 F Albuterol/Ipratropium (Duoneb 3 Mg/0.5 Mg (3 Ml) Ud) 3 ml INH RQ6 [facility] Last Admin: 08/06/16 13:37 Dose: 3 ml Allopurinol (Zyloprim) 300 mg PO DAILY [facility] Last Admin: 08/06/16 09:48 Dose: 300 mg Clopidogrel Bisulfate (Plavix) 75 mg PO DAILY [facility] Last Admin: 08/06/16 09:48 Dose: 75 mg Enoxaparin Sodium (Lovenox) 40 mg SC DAILY [facility] Last Admin: 08/06/16 09:49 Dose: 40 mg Furosemide (Lasix) 40 mg PO DAILY [facility] Last Admin: 08/06/16 09:49 Dose: 40 mg Guaifenesin (Robitussin) 200 mg PO Q4H PRN PRN Reason: Cough and congestion Last Admin: 08/06/16 09:01 Dose: 200 mg Azithromycin 500 mg/ Sodium (Chloride) 250 mls @ 250 mls/hr IVPB Q24H [facility] Last Admin: 08/05/16 20:18 Dose: 250 mls/hr Ceftriaxone Sodium 2 gm/ (Sodium Chloride) 100 mls @ 100 mls/hr IVPB Q24H [facility] Last Admin: 08/05/16 22:54 Dose: 100 mls/hr Losartan Potassium (Cozaar) 25 mg PO DAILY [facility] Last Admin: 08/06/16 09:49 Dose: 25 mg Methylprednisolone (Solu-Medrol) 40 mg IVP Q8 [facility] Last Admin: 08/06/16 13:18 Dose: 40 mg [id number] Ethyl Esters (Lovaza) 1 gm PO BID [facility] Last Admin: 08/06/16 09:49 Dose: 1 gm Pantoprazole Sodium (Protonix Inj) 40 mg IVP DAILY [facility] Last Admin: 08/06/16 09:48 Dose: 40 mg Rosuvastatin Calcium (Crestor) 5 mg PO HS [facility] Last Admin: 08/05/16 21:30 Dose: 5 mg Theophylline (Brian-24) 200 mg PO DAILY [facility] Last Admin: 08/06/16 10:05 Dose: 200 mg - Labs Labs: 08/06/16 06:40 08/06/16 06:40 PT 12.5 SECONDS (9.7-12.2) H 08/03/16 08:09 INR 1.1 08/03/16 08:09 APTT 30 SECONDS (21-34) 08/03/16 08:09 Attending/Attestation - Attestation I have personally seen and examined this patient.: Yes I have fully participated in the care of the patient.: Yes I have reviewed all pertinent clinical information, including history, physical exam and plan: Yes Notes (Text): 08/06/16 14:21 Patient was seen and examined at bedside today. He states that he feels better. Breathing is improving. Still has bilateral lower extremity edema. Continue Iv antibiotics for pneumonia. Continue steroids for COPD exacerbation. Discharge planning likely in the next 24 hours if patient is medically stable and continues to improve. I discussed the plan of care with the resident and I agree with above history and physical and assessment/plan by the resident.
[2016-08-06] MEDS: guaiFENesin 600 mg ER Tab PO SCH (18:09)
--- NOTE | 2016-08-06 18:14 | CP.PCM.PN ---
Subjective - Date & Time of Evaluation Date of Evaluation: 08/05/16 Time of Evaluation: 18:14 - Subjective Subjective: Patient is currently having increasing wheezing and coughing. Leg swelling is better. Patient is any exertional dyspnea, using oxygen at this time. Cough noted, but no mucus production. Denies any chest pain Objective - Vital Signs/Intake and Output Vital Signs (last 24 hours): Temp Pulse Resp BP Pulse Ox 98.2 F 65 20 110/53 L 97 08/05/16 23:05 08/06/16 07:50 08/06/16 06:18 08/06/16 09:49 08/06/16 06:18 Intake and Output: 08/06/16 08/06/16 06:59 18:59 Intake Total 830 Output Total 500 Balance 330 Chest diffuse rales and wheezing noted regular heart sound nontender abdomen extremities 1+ pedal edema - Medications Medications: Current Medications Acetaminophen (Tylenol 325mg Tab) 650 mg PO Q6 PRN PRN Reason: Fever >100.4 F Acetylcysteine (Acetylcysteine 20%) 4 ml INH RQ6 [facility] Albuterol/Ipratropium (Duoneb 3 Mg/0.5 Mg (3 Ml) Ud) 3 ml INH RQ6 [facility] Last Admin: 08/06/16 13:37 Dose: 3 ml Allopurinol (Zyloprim) 300 mg PO DAILY [facility] Last Admin: 08/06/16 09:48 Dose: 300 mg Clopidogrel Bisulfate (Plavix) 75 mg PO DAILY [facility] Last Admin: 08/06/16 09:48 Dose: 75 mg Enoxaparin Sodium (Lovenox) 40 mg SC DAILY [facility] Last Admin: 08/06/16 09:49 Dose: 40 mg Furosemide (Lasix) 40 mg PO DAILY [facility] Last Admin: 08/06/16 09:49 Dose: 40 mg Guaifenesin (Mucinex La) 600 mg PO BID [facility] Last Admin: 08/06/16 18:09 Dose: 600 mg Azithromycin 500 mg/ Sodium (Chloride) 250 mls @ 250 mls/hr IVPB Q24H [facility] Last Admin: 08/05/16 20:18 Dose: 250 mls/hr Ceftriaxone Sodium 2 gm/ (Sodium Chloride) 100 mls @ 100 mls/hr IVPB Q24H [facility] Last Admin: 08/05/16 22:54 Dose: 100 mls/hr Losartan Potassium (Cozaar) 25 mg PO DAILY [facility] Last Admin: 08/06/16 09:49 Dose: 25 mg Methylprednisolone (Solu-Medrol) 40 mg IVP Q12 [facility] Sjfew-[id number] Ethyl Esters (Lovaza) 1 gm PO BID [facility] Last Admin: 08/06/16 18:07 Dose: 1 gm Pantoprazole Sodium (Protonix Inj) 40 mg IVP DAILY [facility] Last Admin: 08/06/16 09:48 Dose: 40 mg Rosuvastatin Calcium (Crestor) 5 mg PO HS [facility] Last Admin: 08/05/16 21:30 Dose: 5 mg Theophylline (Brian-24) 200 mg PO DAILY [facility] Last Admin: 08/06/16 10:05 Dose: 200 mg - Labs Labs: 08/06/16 06:40 08/06/16 06:40 PT 12.5 SECONDS (9.7-12.2) H 08/03/16 08:09 INR 1.1 08/03/16 08:09 APTT 30 SECONDS (21-34) 08/03/16 08:09 Assessment and Plan (1) CHF (congestive heart failure), NYHA class III Status: Acute (2) Chr obstructive pulmonary disease w/ acute lower respiratory infxn Assessment & Plan: Patient with a COPD exacerbation. Heart failure. CAD. Will taper the corticosteroids, continue the dilator Status: Acute
--- NOTE | 2016-08-06 18:16 | CP.PCM.PN ---
Subjective - Date & Time of Evaluation Date of Evaluation: 08/06/16 Time of Evaluation: 18:15 - Subjective Subjective: Patient is complaining of increasing coughing, he is trying to get up, walk after that he started having increasing SOB. He was not using oxygen, patient was having peripheral cyanosis also with exertion. He denies any chest pain. After the resting and oxygen patient felt better. Cough is present, but not producing mucus, chest tightness present with cough. No diarrhea no vomiting. Objective - Vital Signs/Intake and Output Vital Signs (last 24 hours): Temp Pulse Resp BP Pulse Ox 98.2 F 65 20 110/53 L 97 08/05/16 23:05 08/06/16 07:50 08/06/16 06:18 08/06/16 09:49 08/06/16 06:18 Intake and Output: 08/06/16 08/06/16 06:59 18:59 Intake Total 830 Output Total 500 Balance 330 Chest bilateral diffuse rhonchi and wheezing noted. No accessory muscle. Regular heart sound. Edema 1+ bilaterally noted. Patient's medications reviewed - Medications Medications: Current Medications Acetaminophen (Tylenol 325mg Tab) 650 mg PO Q6 PRN PRN Reason: Fever >100.4 F Acetylcysteine (Acetylcysteine 20%) 4 ml INH RQ6 [facility] Albuterol/Ipratropium (Duoneb 3 Mg/0.5 Mg (3 Ml) Ud) 3 ml INH RQ6 [facility] Last Admin: 08/06/16 13:37 Dose: 3 ml Allopurinol (Zyloprim) 300 mg PO DAILY [facility] Last Admin: 08/06/16 09:48 Dose: 300 mg Clopidogrel Bisulfate (Plavix) 75 mg PO DAILY [facility] Last Admin: 08/06/16 09:48 Dose: 75 mg Enoxaparin Sodium (Lovenox) 40 mg SC DAILY [facility] Last Admin: 08/06/16 09:49 Dose: 40 mg Furosemide (Lasix) 40 mg PO DAILY [facility] Last Admin: 08/06/16 09:49 Dose: 40 mg Guaifenesin (Mucinex La) 600 mg PO BID [facility] Last Admin: 08/06/16 18:09 Dose: 600 mg Azithromycin 500 mg/ Sodium (Chloride) 250 mls @ 250 mls/hr IVPB Q24H [facility] Last Admin: 08/05/16 20:18 Dose: 250 mls/hr Ceftriaxone Sodium 2 gm/ (Sodium Chloride) 100 mls @ 100 mls/hr IVPB Q24H [facility] Last Admin: 08/05/16 22:54 Dose: 100 mls/hr Losartan Potassium (Cozaar) 25 mg PO DAILY [facility] Last Admin: 08/06/16 09:49 Dose: 25 mg Methylprednisolone (Solu-Medrol) 40 mg IVP Q12 [facility] [id number] Ethyl Esters (Lovaza) 1 gm PO BID [facility] Last Admin: 08/06/16 18:07 Dose: 1 gm Pantoprazole Sodium (Protonix Inj) 40 mg IVP DAILY [facility] Last Admin: 08/06/16 09:48 Dose: 40 mg Rosuvastatin Calcium (Crestor) 5 mg PO HS [facility] Last Admin: 08/05/16 21:30 Dose: 5 mg Theophylline (Brian-24) 200 mg PO DAILY [facility] Last Admin: 08/06/16 10:05 Dose: 200 mg - Labs Labs: 08/06/16 06:40 08/06/16 06:40 PT 12.5 SECONDS (9.7-12.2) H 08/03/16 08:09 INR 1.1 08/03/16 08:09 APTT 30 SECONDS (21-34) 08/03/16 08:09 Assessment and Plan (1) CHF (congestive heart failure), NYHA class III Status: Acute (2) Chr obstructive pulmonary disease w/ acute lower respiratory infxn Assessment & Plan: Patient with acute exacerbation of COPD Increasing bronchitis noted. We'll add Mucomyst, Mucinex. Continue the broncho-dilators corticosteroids. On antibiotic. BiPAP. Oxygen. Physical therapy may be needed will continue the current treatment. Status: Acute
[2016-08-06] MEDS: Acetylcysteine 20% Inhal Soln (4ml) INH SCH (19:45)
[2016-08-06] MEDS: Azithromycin 500 MG in Sodium Chloride 0.9% 250 ML IVPB SCH (20:29)
[2016-08-06] MEDS: cefTRIAXone 2 GM in Sodium Chloride 0.9% 100 ML IVPB SCH (22:47)
[2016-08-06] MEDS ORDERED: POLYETHYLENE GLYCOL 3350 17 GM/Dose PACKET PO ONE (23:30)
[2016-08-07] MEDS: Albuterol-Ipratrop 3 mg / 0.5 (3 ml) UD INH SCH ×4 (01:17→19:50)
[2016-08-07] MEDS: Acetylcysteine 20% Inhal Soln (4ml) INH SCH ×4 (01:17→19:51)
[2016-08-07 06:15] LABS: BASO % 0.1 % (0.0-2.0); LYMPH # 0.4 K/uL (1.0-4.3); LYMPH % 4.1 % (20.0-40.0); MEAN CELL VOLUME 94.6 fL (80.0-94.0); MEAN CORPUSCULAR HEMOGLOBIN 30.3 pg (27.0-31.0); MONO # 0.3 K/uL (0.0-0.8); MONO % 3.4 % (0.0-10.0); PLATELET COUNT 194 K/uL (130-400); WHITE BLOOD COUNT 10.4 K/uL (4.8-10.8)
[2016-08-07 06:27] LABS: CHLORIDE 94 mmol/L (98-107); POTASSIUM 4.6 mmol/L (3.6-5.2); SODIUM 134 mmol/L (132-148)
[2016-08-07 06:29] LABS: BILIRUBIN,TOTAL 0.8 mg/dL (0.2-1.3); GFR AFRICAN-AMERICAN > 60
[2016-08-07 06:30] LABS: ALB/GLOB RATIO 1.2 (1.0-2.1); ALKALINE PHOSPHATASE 54 U/L (38-126); ALT/SGPT 30 U/L (21-72); AST/SGOT 21 U/L (17-59); BLOOD UREA NITROGEN 33 mg/dL (9-20); CARBON DIOXIDE 34 mmol/L (22-30); GLUCOSE,RANDOM 202 mg/dL (75-110); TOTAL PROTEIN 5.9 g/dL (6.3-8.3)
[2016-08-07 06:31] LABS: CALCIUM 7.4 mg/dl (8.6-10.4)
[2016-08-07 07:50] LABS: NEUTROPHIL 88 % (50-75); TOTAL CELLS COUNTED 100
[2016-08-07] MEDS: Enoxaparin 40 mg Syringe SC SCH (09:56)
[2016-08-07] MEDS: guaiFENesin 600 mg ER Tab PO SCH ×2 (09:57→18:33)
[2016-08-07] MEDS: Omega-3-Acid Ethyl Esters 1 GM Cap PO SCH ×2 (09:57→18:33)
[2016-08-07] MEDS: Theophylline 200mg ER 24 hrs Cap PO SCH (09:57)
--- NOTE | 2016-08-07 09:59 | CP.PCM.PN ---
<Elvis Larson - Last Filed: 08/07/16 10:05> Subjective - Date & Time of Evaluation Date of Evaluation: 08/07/16 Time of Evaluation: 08:05 - Subjective Subjective: Cardiology progress note Dr Corbett Patient seen and examined at the bedside. No acute distress, resting comfortably in bed, receiving breathing treatment at time of exam. No acute events overnight as per patient and nursing. No chest pain, but still feels intermittently short of breath. Shortness of breath is improved over severity on admission. Some lower extremity edema, but unchanged as per patient. The patient denies other cardiopulmonary complaints. 12 point review of systems was completed and returned negative aside from the above stated complaints. Objective - Vital Signs/Intake and Output Vital Signs (last 24 hours): Temp Pulse Resp BP Pulse Ox 97.4 F L 87 18 131/78 97 08/07/16 07:47 08/07/16 08:27 08/07/16 07:47 08/07/16 07:47 08/07/16 07:47 Intake and Output: 08/07/16 08/07/16 06:59 18:59 Intake Total 850 Output Total 1300 Balance -450 - Medications Medications: Current Medications Acetaminophen (Tylenol 325mg Tab) 650 mg PO Q6 PRN PRN Reason: Fever >100.4 F Acetylcysteine (Acetylcysteine 20%) 4 ml INH RQ6 [facility] Last Admin: 08/07/16 07:42 Dose: 4 ml Albuterol/Ipratropium (Duoneb 3 Mg/0.5 Mg (3 Ml) Ud) 3 ml INH RQ6 [facility] Last Admin: 08/07/16 07:42 Dose: 3 ml Allopurinol (Zyloprim) 300 mg PO DAILY [facility] Last Admin: 08/06/16 09:48 Dose: 300 mg Clopidogrel Bisulfate (Plavix) 75 mg PO DAILY [facility] Last Admin: 08/06/16 09:48 Dose: 75 mg Enoxaparin Sodium (Lovenox) 40 mg SC DAILY [facility] Last Admin: 08/06/16 09:49 Dose: 40 mg Famotidine (Pepcid) 20 mg PO BID [facility] Furosemide (Lasix) 40 mg PO DAILY [facility] Last Admin: 08/06/16 09:49 Dose: 40 mg Guaifenesin (Mucinex La) 600 mg PO BID [facility] Last Admin: 08/06/16 18:09 Dose: 600 mg Azithromycin 500 mg/ Sodium (Chloride) 250 mls @ 250 mls/hr IVPB Q24H [facility] Last Admin: 08/06/16 20:29 Dose: 250 mls/hr Ceftriaxone Sodium 2 gm/ (Sodium Chloride) 100 mls @ 100 mls/hr IVPB Q24H [facility] Last Admin: 08/06/16 22:47 Dose: 100 mls/hr Losartan Potassium (Cozaar) 25 mg PO DAILY [facility] Last Admin: 08/06/16 09:49 Dose: 25 mg Methylprednisolone (Solu-Medrol) 40 mg IVP Q12 [facility] Last Admin: 08/06/16 22:43 Dose: 40 mg Qxfii-2-Goqv Ethyl Esters (Lovaza) 1 gm PO BID [facility] Last Admin: 08/06/16 18:07 Dose: 1 gm Rosuvastatin Calcium (Crestor) 5 mg PO HS [facility] Last Admin: 08/06/16 22:09 Dose: 5 mg Theophylline (Brian-24) 200 mg PO DAILY [facility] Last Admin: 08/06/16 10:05 Dose: 200 mg - Labs Labs: 08/07/16 06:06 08/07/16 06:06 PT 12.5 SECONDS (9.7-12.2) H 08/03/16 08:09 INR 1.1 08/03/16 08:09 APTT 30 SECONDS (21-34) 08/03/16 08:09 - Constitutional Appears: Well, Non-toxic, No Acute Distress - Head Exam Head Exam: ATRAUMATIC, NORMAL INSPECTION, NORMOCEPHALIC - Eye Exam Eye Exam: EOMI, Normal appearance. absent: Conjunctival injection, Scleral icterus Pupil Exam: absent: Irregular, Unequal - ENT Exam ENT Exam: Mucous Membranes Moist - Neck Exam Neck Exam: absent: Tenderness Additional comments: No JVD - Respiratory Exam Respiratory Exam: Decreased Breath Sounds (Moderately decreased breath sounds in all downs). absent: Chest Wall Tenderness - Cardiovascular Exam Cardiovascular Exam: REGULAR RHYTHM, RRR, +S1, +S2. absent: Bradycardia, Tachycardia, Clicks, Irregular Rhythm, +S4 - GI/Abdominal Exam GI & Abdominal Exam: Soft, Normal Bowel Sounds. absent: Distended (obese but not distended), Firm, Rigid, Tenderness, Diminished Bowel Sounds, Hyperactive Bowel Sounds, Hypoactive Bowel Sounds - Extremities Exam Extremities Exam: Pedal Edema (+1-2 pitting edema in bilateral LE below the knees), Tenderness (generalized tenderness on deep palpation at all edematous sites (bilateral LE below the knees), no site most prominent). absent: Calf Tenderness Additional comments: Some reddened and waxy skin in bilateral LE - Back Exam Back Exam: NORMAL INSPECTION. absent: rash noted - Neurological Exam Neurological Exam: Alert, Awake, CN II-XII Intact - Psychiatric Exam Psychiatric exam: Normal Affect, Normal Mood - Skin Skin Exam: Dry, Intact, Normal Color (except as noted in Extremities exam), Warm Assessment and Plan (1) Dyspnea Assessment & Plan: CXR 08/02/16: cardiomegaly with mild venous congestion. Left basilar airspace opacity which may represent effusion versus atelectasis versus infiltrate. Chest CT 08/03/16: Small bilateral pleural effusions, mild dependent atelectasis EKG 08/02/16: Atrial sensed Biventricularly-paced rhythm, HR 81, QTc prolonged at 483 EKG 03/10/14: accelerated junctional rhythm with frequent/consecutive PVCs and fusion complexes. Inferior infarct, age undetermined, T wave abnormality, consider lateral ischemia. Echo 08/04/16: EF 57%, Normal LV wall thickness, mild septal wall hypokinesis, Grade-I abnormal relaxation doppler flow pattern, Mild MR/TR, Mild Pulm HTN, severe sclerocalcific changes of aortic root Echo 03/11/14: EF: 45%, mild concentric LVH, severely impair systolic fxn, Septal hypokinesis, calcified aortic valve with decreased opening, Trace AR, Mild valvular and TR, mild-mod Pulm HTN Cardiac Cath 03/12/14: Severe aortic stenosis, patent coronary bypass graphs, severe pulmonary hypertension. Troponins: 0.0390, 0.0480 -CHF exacerbation vs COPD exacerbation vs 2/2 infectious etiology -Less likely ACS given trops and EKG findings, lack of chest pain -Shortness of breath improved but not resolved -Repeat Echo shows improved EF, mild pulm HTN -Continue all cardiac meds, continue medical management Status: Acute (2) CHF (congestive heart failure), NYHA class III Assessment & Plan: CXR 08/02/16: cardiomegaly with mild venous congestion. Left basilar airspace opacity which may represent effusion versus atelectasis versus infiltrate. Chest CT 08/03/16: Small bilateral pleural effusions, mild dependent atelectasis EKG 08/02/16: Atrial sensed Biventricularly-paced rhythm, HR 81, QTc prolonged at 483 EKG 03/10/14: accelerated junctional rhythm with frequent/consecutive PVCs and fusion complexes. Inferior infarct, age undetermined, T wave abnormality, consider lateral ischemia. Echo 08/04/16: EF 57%, Normal LV wall thickness, mild septal wall hypokinesis, Grade-I abnormal relaxation doppler flow pattern, Mild MR/TR, Mild Pulm HTN, severe sclerocalcific changes of aortic root Echo 03/11/14: EF: 45%, mild concentric LVH, severely impair systolic fxn, Septal hypokinesis, calcified aortic valve with decreased opening, Trace AR, Mild valvular and TR, mild-mod Pulm HTN Cardiac Cath 03/12/14: Severe aortic stenosis, patent coronary bypass graphs, severe pulmonary hypertension. Troponins: 0.0390, 0.0480 -Patient follows with Dr. Donnelly as outpatient. -Pacer/ICD in place, EKG shows biventricularly paced rhythm -BNP on admission 698 -Continue Diuresis with Lasix, continue Losartan -continue medical management Status: Chronic (3) CAD (coronary artery disease) Assessment & Plan: CXR 08/02/16: cardiomegaly with mild venous congestion. Left basilar airspace opacity which may represent effusion versus atelectasis versus infiltrate. Chest CT 08/03/16: Small bilateral pleural effusions, mild dependent atelectasis EKG 08/02/16: Atrial sensed Biventricularly-paced rhythm, HR 81, QTc prolonged at 483 EKG 03/10/14: accelerated junctional rhythm with frequent/consecutive PVCs and fusion complexes. Inferior infarct, age undetermined, T wave abnormality, consider lateral ischemia. Echo 08/04/16: EF 57%, Normal LV wall thickness, mild septal wall hypokinesis, Grade-I abnormal relaxation doppler flow pattern, Mild MR/TR, Mild Pulm HTN, severe sclerocalcific changes of aortic root Echo 03/11/14: EF: 45%, mild concentric LVH, severely impair systolic fxn, Septal hypokinesis, calcified aortic valve with decreased opening, Trace AR, Mild valvular and TR, mild-mod Pulm HTN Cardiac Cath 03/12/14: Severe aortic stenosis, patent coronary bypass graphs, severe pulmonary hypertension. Troponins: 0.0390, 0.0480 -Hx CAD with stents, CABG -continue Antiplatelets (ASA/Plavix), continue statin -continue to monitor Status: Chronic (4) HTN (hypertension) Assessment & Plan: CXR 08/02/16: cardiomegaly with mild venous congestion. Left basilar airspace opacity which may represent effusion versus atelectasis versus infiltrate. Chest CT 08/03/16: Small bilateral pleural effusions, mild dependent atelectasis EKG 08/02/16: Atrial sensed Biventricularly-paced rhythm, HR 81, QTc prolonged at 483 EKG 03/10/14: accelerated junctional rhythm with frequent/consecutive PVCs and fusion complexes. Inferior infarct, age undetermined, T wave abnormality, consider lateral ischemia. Echo 08/04/16: EF 57%, Normal LV wall thickness, mild septal wall hypokinesis, Grade-I abnormal relaxation doppler flow pattern, Mild MR/TR, Mild Pulm HTN, severe sclerocalcific changes of aortic root Echo 03/11/14: EF: 45%, mild concentric LVH, severely impair systolic fxn, Septal hypokinesis, calcified aortic valve with decreased opening, Trace AR, Mild valvular and TR, mild-mod Pulm HTN Cardiac Cath 03/12/14: Severe aortic stenosis, patent coronary bypass graphs, severe pulmonary hypertension. Troponins: 0.0390, 0.0480 -Hx CAD, CHF in addition to HTN -control with Lasix and Losartan -BPs wnl, intermittently low diastolic BP but otherwise unremarkable -Continue medical management, continue to monitor Status: Chronic (5) Aortic stenosis, severe Assessment & Plan: CXR 08/02/16: cardiomegaly with mild venous congestion. Left basilar airspace opacity which may represent effusion versus atelectasis versus infiltrate. EKG 08/02/16: Atrial sensed Biventricularly-paced rhythm, HR 81, QTc prolonged at 483 EKG 03/10/14: accelerated junctional rhythm with frequent/consecutive PVCs and fusion complexes. Inferior infarct, age undetermined, T wave abnormality, consider lateral ischemia. Echo 08/04/16: EF 57%, Normal LV wall thickness, mild septal wall hypokinesis, Grade-I abnormal relaxation doppler flow pattern, Mild MR/TR, Mild Pulm HTN, severe sclerocalcific changes of aortic root Echo 03/11/14: EF: 45%, mild concentric LVH, severely impair systolic fxn, Septal hypokinesis, calcified aortic valve with decreased opening, Trace AR, Mild valvular and TR, mild-mod Pulm HTN Cardiac Cath 03/12/14: Severe aortic stenosis, patent coronary bypass graphs, severe pulmonary hypertension. 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 Corbett. <Dieudonne Corbett - Last Filed: 08/07/16 19:37> Objective - Vital Signs/Intake and Output Vital Signs (last 24 hours): Temp Pulse Resp BP Pulse Ox 98.4 F 65 22 124/52 L 97 08/07/16 15:00 08/07/16 15:30 08/07/16 15:00 08/07/16 15:00 08/07/16 15:00 - Medications Medications: Current Medications Acetaminophen (Tylenol 325mg Tab) 650 mg PO Q6 PRN PRN Reason: Fever >100.4 F Acetylcysteine (Acetylcysteine 20%) 4 ml INH RQ6 [facility] Last Admin: 08/07/16 13:17 Dose: 4 ml Albuterol/Ipratropium (Duoneb 3 Mg/0.5 Mg (3 Ml) Ud) 3 ml INH RQ6 [facility] Last Admin: 08/07/16 13:16 Dose: 3 ml Allopurinol (Zyloprim) 300 mg PO DAILY [facility] Last Admin: 08/07/16 09:57 Dose: 300 mg Clopidogrel Bisulfate (Plavix) 75 mg PO DAILY [facility] Last Admin: 08/07/16 09:56 Dose: 75 mg Enoxaparin Sodium (Lovenox) 40 mg SC DAILY [facility] Last Admin: 08/07/16 09:56 Dose: 40 mg Famotidine (Pepcid) 20 mg PO BID [facility] Last Admin: 08/07/16 18:33 Dose: 20 mg Furosemide (Lasix) 40 mg PO DAILY [facility] Last Admin: 08/07/16 09:56 Dose: 40 mg Guaifenesin (Mucinex La) 600 mg PO BID [facility] Last Admin: 08/07/16 18:33 Dose: 600 mg Azithromycin 500 mg/ Sodium (Chloride) 250 mls @ 250 mls/hr IVPB Q24H [facility] Last Admin: 08/06/16 20:29 Dose: 250 mls/hr Ceftriaxone Sodium 2 gm/ (Sodium Chloride) 100 mls @ 100 mls/hr IVPB Q24H [facility] Last Admin: 08/06/16 22:47 Dose: 100 mls/hr Losartan Potassium (Cozaar) 25 mg PO DAILY [facility] Last Admin: 08/07/16 09:57 Dose: 25 mg Methylprednisolone (Solu-Medrol) 40 mg IVP Q12 [facility] Last Admin: 08/07/16 10:15 Dose: 40 mg [id number]-[id number] Ethyl Esters (Lovaza) 1 gm PO BID [facility] Last Admin: 08/07/16 18:33 Dose: 1 gm Rosuvastatin Calcium (Crestor) 5 mg PO HS [facility] Last Admin: 08/06/16 22:09 Dose: 5 mg Theophylline (Brian-24) 200 mg PO DAILY [facility] Last Admin: 08/07/16 09:57 Dose: 200 mg - Labs Labs: 08/07/16 06:06 08/07/16 06:06 PT 12.5 SECONDS (9.7-12.2) H 08/03/16 08:09 INR 1.1 08/03/16 08:09 APTT 30 SECONDS (21-34) 08/03/16 08:09 Attending/Attestation - Attestation I have personally seen and examined this patient.: Yes I have fully participated in the care of the patient.: Yes I have reviewed all pertinent clinical information, including history, physical exam and plan: Yes Notes (Text): 08/07/16 19:37 Pt much improved beto call Dr. Donnelly for follow up
[2016-08-07] MEDS: MethylPREDNISolone 40 mg Vial IVP SCH ×2 (10:15→21:12)
--- NOTE | 2016-08-07 13:54 | CP.PCM.PN ---
<Odin Pacheco - Last Filed: 08/07/16 13:51> Subjective - Date & Time of Evaluation Date of Evaluation: 08/07/16 Time of Evaluation: 07:07 - Subjective Subjective: Pt seen and examined. Pt reports that he is feeling a little bit better today than yesterday, but still has a lot of congestion. Pt reports that he has a dry cough. Pt denies fever, chills, chest pain, shortness of breath, nausea, and vomiting. Objective - Vital Signs/Intake and Output Vital Signs (last 24 hours): Temp Pulse Resp BP Pulse Ox 97.4 F L 87 18 120/61 97 08/07/16 07:47 08/07/16 08:27 08/07/16 07:47 08/07/16 09:56 08/07/16 07:47 Intake and Output: 08/07/16 08/07/16 06:59 18:59 Intake Total 850 Output Total 1300 Balance -450 - Medications Medications: Current Medications Acetaminophen (Tylenol 325mg Tab) 650 mg PO Q6 PRN PRN Reason: Fever >100.4 F Acetylcysteine (Acetylcysteine 20%) 4 ml INH RQ6 [facility] Last Admin: 08/07/16 13:17 Dose: 4 ml Albuterol/Ipratropium (Duoneb 3 Mg/0.5 Mg (3 Ml) Ud) 3 ml INH RQ6 [facility] Last Admin: 08/07/16 13:16 Dose: 3 ml Allopurinol (Zyloprim) 300 mg PO DAILY [facility] Last Admin: 08/07/16 09:57 Dose: 300 mg Clopidogrel Bisulfate (Plavix) 75 mg PO DAILY [facility] Last Admin: 08/07/16 09:56 Dose: 75 mg Enoxaparin Sodium (Lovenox) 40 mg SC DAILY [facility] Last Admin: 08/07/16 09:56 Dose: 40 mg Famotidine (Pepcid) 20 mg PO BID [facility] Last Admin: 08/07/16 09:57 Dose: 20 mg Furosemide (Lasix) 40 mg PO DAILY [facility] Last Admin: 08/07/16 09:56 Dose: 40 mg Guaifenesin (Mucinex La) 600 mg PO BID [facility] Last Admin: 08/07/16 09:57 Dose: 600 mg Azithromycin 500 mg/ Sodium (Chloride) 250 mls @ 250 mls/hr IVPB Q24H [facility] Last Admin: 08/06/16 20:29 Dose: 250 mls/hr Ceftriaxone Sodium 2 gm/ (Sodium Chloride) 100 mls @ 100 mls/hr IVPB Q24H [facility] Last Admin: 08/06/16 22:47 Dose: 100 mls/hr Losartan Potassium (Cozaar) 25 mg PO DAILY [facility] Last Admin: 08/07/16 09:57 Dose: 25 mg Methylprednisolone (Solu-Medrol) 40 mg IVP Q12 [facility] Last Admin: 08/07/16 10:15 Dose: 40 mg Bfcze-2-Dyfd Ethyl Esters (Lovaza) 1 gm PO BID [facility] Last Admin: 08/07/16 09:57 Dose: 1 gm Rosuvastatin Calcium (Crestor) 5 mg PO HS [facility] Last Admin: 08/06/16 22:09 Dose: 5 mg Theophylline (Brian-24) 200 mg PO DAILY [facility] Last Admin: 08/07/16 09:57 Dose: 200 mg - Labs Labs: 08/07/16 06:06 08/07/16 06:06 PT 12.5 SECONDS (9.7-12.2) H 08/03/16 08:09 INR 1.1 08/03/16 08:09 APTT 30 SECONDS (21-34) 08/03/16 08:09 - Head Exam Head Exam: ATRAUMATIC, NORMOCEPHALIC - Eye Exam Eye Exam: EOMI, PERRL - ENT Exam ENT Exam: Mucous Membranes Moist. absent: Mucous Membranes Dry - Neck Exam Neck Exam: Full ROM. absent: Lymphadenopathy - Respiratory Exam Respiratory Exam: Rhonchi, Wheezes. absent: Rales - Cardiovascular Exam Cardiovascular Exam: Gallop, +S1, +S2 - GI/Abdominal Exam GI & Abdominal Exam: Soft, Normal Bowel Sounds. absent: Distended, Tenderness - Extremities Exam Extremities Exam: Pedal Edema Additional comments: Trace pedal edema - Neurological Exam Neurological Exam: Alert, Awake, Oriented x3 - Psychiatric Exam Psychiatric exam: Normal Affect, Normal Mood - Skin Skin Exam: Normal Color, Warm Assessment and Plan - Assessment and Plan (Free Text) Assessment: Pneumonia/Bronchitis: Infectious Disease, Dr. Dave, consulted. Help appreciated. Duonebs q6h Rocephin 2 gm IV q24h Azithromycin 500 mg IV q24h Solumedrol 40 mg IV q12h Theophylline 200 mg po qd Pulm, Dr. Patterson, consulted. Help appreciated. Mucomyst Q6h Chest PT Blood cultures negative after 4 days COPD Exacerbation: Duonebs q6h Rocephin 2 gm IV q24h Azithromycin 500 mg IV q24h Solumedrol 40 mg IV q12h Theophylline 200 mg po qd Pulm, Dr. Patterson, consulted. Help appreciated. Mucomyst Q6h CHF Exacerbation: Currently stable Troponins negative x 3 EKG - please see full report Pro-BNP 698 CXR- mild venous congestion, no significant interval changes (please see full report) Chest CT- mild bilateral pulmonary effusions (please see full report) Cardiology, Dr. Corbett, consulted. Help appreciated. Coreg 3.125 mg po bid Plavix 75 mg po qd Cozaar 25 mg po qd Cestor 5 mg po hs Lasix 40 mg po qd CAD: Plavix 75 mg po qd Lovaza 1 gm po bid HTN: Cozaar 25 mg po qd Cestor 5 mg po hs Hypercholesterolemia: Lovaza 1 gm po bid Cestor 5 mg po hs Prophylactic Measures: DVT: SCDs, Lovenox GI: Protonix 40 mg po qd <Lorenzo Hoang - Last Filed: 09/08/16 13:14> Objective - Vital Signs/Intake and Output Vital Signs (last 24 hours): Temp Pulse Resp BP Pulse Ox 98 F 72 20 130/62 99 08/09/16 07:00 08/09/16 07:00 08/09/16 07:00 08/09/16 09:17 08/09/16 07:00 - Labs Labs: 08/09/16 06:16 08/09/16 06:16 PT 12.5 SECONDS (9.7-12.2) H 08/03/16 08:09 INR 1.1 08/03/16 08:09 APTT 30 SECONDS (21-34) 08/03/16 08:09 Attending/Attestation - Attestation I have personally seen and examined this patient.: Yes I have fully participated in the care of the patient.: Yes I have reviewed all pertinent clinical information, including history, physical exam and plan: Yes Notes (Text): Patient Seen and examined with the resident. Agree with the resident's evaluation, assessment and plan. Pneumonia/Bronchitis: COPD Exacerbation: CHF Exacerbation: acute follow up echo
--- NOTE | 2016-08-07 17:27 | CP.PCM.PN ---
Subjective - Date & Time of Evaluation Date of Evaluation: 08/07/16 Time of Evaluation: 17:24 - Subjective Subjective: INFECTIOUS DISEASE PROGRESS NOTE EVA CASH MD, FACP 6T 651-A 08/07/2016 CHART REVIEWED PT EXAMINED CASE DISCUSSED STILL CONGESTED LEFT MORE THAN RIGHT COR RR ABDOMEN SOFT EXT NO CYANOSIS Objective - Vital Signs/Intake and Output Vital Signs (last 24 hours): Temp Pulse Resp BP Pulse Ox 98.4 F 65 22 124/52 L 97 08/07/16 15:00 08/07/16 15:30 08/07/16 15:00 08/07/16 15:00 08/07/16 15:00 Intake and Output: 08/07/16 08/07/16 06:59 18:59 Intake Total 850 Output Total 1300 Balance -450 - Medications Medications: Current Medications Acetaminophen (Tylenol 325mg Tab) 650 mg PO Q6 PRN PRN Reason: Fever >100.4 F Acetylcysteine (Acetylcysteine 20%) 4 ml INH RQ6 [facility] Last Admin: 08/07/16 13:17 Dose: 4 ml Albuterol/Ipratropium (Duoneb 3 Mg/0.5 Mg (3 Ml) Ud) 3 ml INH RQ6 [facility] [place] Last Admin: 08/07/16 13:16 Dose: 3 ml Allopurinol (Zyloprim) 300 mg PO DAILY [facility] [place] Last Admin: 08/07/16 09:57 Dose: 300 mg Clopidogrel Bisulfate (Plavix) 75 mg PO DAILY [facility] [place] Last Admin: 08/07/16 09:56 Dose: 75 mg Enoxaparin Sodium (Lovenox) 40 mg SC DAILY [facility] [place] Last Admin: 08/07/16 09:56 Dose: 40 mg Famotidine (Pepcid) 20 mg PO BID [facility] [place] Last Admin: 08/07/16 09:57 Dose: 20 mg Furosemide (Lasix) 40 mg PO DAILY [facility] [place] Last Admin: 08/07/16 09:56 Dose: 40 mg Guaifenesin (Mucinex La) 600 mg PO BID [facility] [place] Last Admin: 08/07/16 09:57 Dose: 600 mg Azithromycin 500 mg/ Sodium (Chloride) 250 mls @ 250 mls/hr IVPB Q24H [facility] [place] Last Admin: 08/06/16 20:29 Dose: 250 mls/hr Ceftriaxone Sodium 2 gm/ (Sodium Chloride) 100 mls @ 100 mls/hr IVPB Q24H [facility] [place] Last Admin: 08/06/16 22:47 Dose: 100 mls/hr Losartan Potassium (Cozaar) 25 mg PO DAILY [facility] [place] Last Admin: 08/07/16 09:57 Dose: 25 mg Methylprednisolone (Solu-Medrol) 40 mg IVP Q12 [facility] [place] Last Admin: 08/07/16 10:15 Dose: 40 mg Gicyq-6-Cznf Ethyl Esters (Lovaza) 1 gm PO BID [facility] [place] Last Admin: 08/07/16 09:57 Dose: 1 gm Rosuvastatin Calcium (Crestor) 5 mg PO HS [facility] [place] Last Admin: 08/06/16 22:09 Dose: 5 mg Theophylline (Brian-24) 200 mg PO DAILY [facility] [place] Last Admin: 08/07/16 09:57 Dose: 200 mg - Labs Labs: 08/07/16 06:06 08/07/16 06:06 PT 12.5 SECONDS (9.7-12.2) H 08/03/16 08:09 INR 1.1 08/03/16 08:09 APTT 30 SECONDS (21-34) 08/03/16 08:09 - Constitutional Appears: Non-toxic, In Acute Distress, Chronically Ill - Head Exam Head Exam: ATRAUMATIC - Eye Exam Eye Exam: Normal appearance - ENT Exam ENT Exam: Mucous Membranes Moist - Respiratory Exam Respiratory Exam: Decreased Breath Sounds, Rales, Rhonchi, Wheezes - Cardiovascular Exam Cardiovascular Exam: Tachycardia - GI/Abdominal Exam GI & Abdominal Exam: Soft, Normal Bowel Sounds. absent: Tenderness - Rectal Exam Rectal Exam: Deferred - Back Exam Back Exam: absent: rash noted, tenderness - Neurological Exam Neurological Exam: Alert, Awake - Psychiatric Exam Psychiatric exam: Normal Affect, Normal Mood - Skin Skin Exam: Dry, Warm Assessment and Plan (1) Chr obstructive pulmonary disease w/ acute lower respiratory infxn Status: Acute (2) Pneumonia Assessment & Plan: OBTAIN CXR NOW Status: Acute (3) Pneumonia allergic Status: Acute (4) CHF (congestive heart failure), NYHA class III Status: Chronic (5) HTN (hypertension) Status: Chronic (6) Dyspnea Status: Acute
[2016-08-07] MEDS: cefTRIAXone 2 GM in Sodium Chloride 0.9% 100 ML IVPB SCH (21:12)
[2016-08-07] MEDS: Azithromycin 500 MG in Sodium Chloride 0.9% 250 ML IVPB SCH (22:58)
[2016-08-07 23:05] VITALS: RESP 20
[2016-08-08] MEDS: Acetylcysteine 20% Inhal Soln (4ml) INH SCH ×4 (02:31→19:59)
[2016-08-08] MEDS: Albuterol-Ipratrop 3 mg / 0.5 (3 ml) UD INH SCH ×4 (02:31→19:58)
[2016-08-08 07:09] LABS: BASO % 0.1 % (0.0-2.0); HEMATOCRIT 34.6 % (35.0-51.0); LYMPH # 0.4 K/uL (1.0-4.3); MEAN CELL VOLUME 94.4 fL (80.0-94.0); MEAN CORPUSCULAR HGB CONC 31.7 g/dL (33.0-37.0); MONO # 0.5 K/uL (0.0-0.8); MONO % 4.1 % (0.0-10.0); PLATELET COUNT 212 K/uL (130-400); RED CELL DISTRIBUTION WIDTH 17.6 % (11.5-14.5)
[2016-08-08 07:32] LABS: CHLORIDE 94 mmol/L (98-107)
[2016-08-08 07:33] LABS: POTASSIUM 5.3 mmol/L (3.6-5.2); SODIUM 134 mmol/L (132-148)
[2016-08-08 07:35] LABS: AST/SGOT 29 U/L (17-59); BILIRUBIN,TOTAL 0.7 mg/dL (0.2-1.3); CARBON DIOXIDE 35 mmol/L (22-30); GFR AFRICAN-AMERICAN > 60
[2016-08-08 07:36] LABS: ALB/GLOB RATIO 1.2 (1.0-2.1); ALKALINE PHOSPHATASE 51 U/L (38-126); ALT/SGPT 36 U/L (21-72); BLOOD UREA NITROGEN 39 mg/dL (9-20); CALCIUM 7.7 mg/dl (8.6-10.4); GLUCOSE,RANDOM 181 mg/dL (75-110); PHOSPHOROUS 4.8 mg/dL (2.5-4.5)
--- NOTE | 2016-08-08 07:37 | CP.PCM.PN ---
<Alyssa Avila - Last Filed: 08/08/16 10:48> Subjective - Date & Time of Evaluation Date of Evaluation: 08/08/16 Time of Evaluation: 09:00 - Subjective Subjective: Cardiology Progress Note- Dr. Corbett Patient seen and examined at bedside this AM. Admits to cough that is dry. He wants a syrup for his cough. Admits SOB has improved. Continues to feel congested. All other 12 point ROS was negative. Objective - Vital Signs/Intake and Output Vital Signs (last 24 hours): Temp Pulse Resp BP Pulse Ox 97.9 F 68 20 111/59 L 95 08/07/16 23:05 08/08/16 04:35 08/07/16 23:05 08/07/16 23:05 08/07/16 23:05 - Medications Medications: Current Medications Acetaminophen (Tylenol 325mg Tab) 650 mg PO Q6 PRN PRN Reason: Fever >100.4 F Acetylcysteine (Acetylcysteine 20%) 4 ml INH RQ6 [facility] Last Admin: 08/08/16 02:31 Dose: 4 ml Allopurinol (Zyloprim) 300 mg PO DAILY [facility] Last Admin: 08/07/16 09:57 Dose: 300 mg Clopidogrel Bisulfate (Plavix) 75 mg PO DAILY [facility] Last Admin: 08/07/16 09:56 Dose: 75 mg Enoxaparin Sodium (Lovenox) 40 mg SC DAILY [facility] Last Admin: 08/07/16 09:56 Dose: 40 mg Famotidine (Pepcid) 20 mg PO BID [facility] Last Admin: 08/07/16 18:33 Dose: 20 mg Furosemide (Lasix) 40 mg PO DAILY [facility] Last Admin: 08/07/16 09:56 Dose: 40 mg Guaifenesin (Mucinex La) 600 mg PO BID [facility] Last Admin: 08/07/16 18:33 Dose: 600 mg Azithromycin 500 mg/ Sodium (Chloride) 250 mls @ 250 mls/hr IVPB Q24H [facility] Last Admin: 08/07/16 22:58 Dose: 250 mls/hr Ceftriaxone Sodium 2 gm/ (Sodium Chloride) 100 mls @ 100 mls/hr IVPB Q24H [facility] Last Admin: 08/07/16 21:12 Dose: 100 mls/hr Losartan Potassium (Cozaar) 25 mg PO DAILY [facility] Last Admin: 08/07/16 09:57 Dose: 25 mg Methylprednisolone (Solu-Medrol) 40 mg IVP Q12 [facility] Last Admin: 08/07/16 21:12 Dose: 40 mg Msmzw-4-Djuc Ethyl Esters (Lovaza) 1 gm PO BID [facility] Last Admin: 08/07/16 18:33 Dose: 1 gm Rosuvastatin Calcium (Crestor) 5 mg PO HS [facility] Last Admin: 08/07/16 21:11 Dose: 5 mg Theophylline (Brian-24) 200 mg PO DAILY [facility] Last Admin: 08/07/16 09:57 Dose: 200 mg - Labs Labs: 08/08/16 06:57 08/08/16 06:57 PT 12.5 SECONDS (9.7-12.2) H 08/03/16 08:09 INR 1.1 08/03/16 08:09 APTT 30 SECONDS (21-34) 08/03/16 08:09 - Constitutional Appears: No Acute Distress - Head Exam Head Exam: NORMAL INSPECTION, NORMOCEPHALIC - Eye Exam Eye Exam: EOMI, Normal appearance - ENT Exam ENT Exam: Mucous Membranes Moist - Neck Exam Neck Exam: Full ROM - Respiratory Exam Additional comments: +coarse breath sounds. - Cardiovascular Exam Cardiovascular Exam: REGULAR RHYTHM, +S1, +S2 - GI/Abdominal Exam GI & Abdominal Exam: Soft. absent: Distended, Tenderness - Extremities Exam Extremities Exam: Full ROM, Normal Inspection - Neurological Exam Neurological Exam: Alert, Oriented x3 - Psychiatric Exam Psychiatric exam: Normal Affect, Normal Mood - Skin Skin Exam: Dry, Normal Color, Warm Assessment and Plan - Assessment and Plan (Free Text) Assessment: (1) Dyspnea Assessment and Plan: 80 year old male with significant cardiac history admitted on 08/02/16 for SOB. Acute SOB likely secondary to infectious process. Continue IV antibiotics. Management as per primary team. Patient has Hx of CHF. Repeat ECHO shows normal LV function with EF 57%. Sclerocalcific aortic root. mild pulm HTN, mild MR. Nuclear stress test was cancelled since patient reports recent stress test done December of 2016 prior to urology surgery. Troponins: 0.0390, 0.0480 CXR:(08/02/16) shows cardiomegaly with mild venous congestion. Left basilar airspace opacity which may represent effusion versus atelectasis versus infiltrate. EKG: (08/02/16): Ventricular-paced rhythm. EKG: (03/10/14): accelerated junctional rhythm with frequent/consecutive PVCs and fusion complexes. Inferior infarct, age undetermined, T wave abnormality, consider lateral ischemia. Echo: (03/11/14): EF: 45% Cardiac Cath: (03/12/14): Severe aortic stenosis, patent coronary bypass graphs , severe pulmonary hypertension. Status: Acute (2) CHF (congestive heart failure), NYHA class III Assessment and Plan: Patient follows with Dr. Donnelly as outpatient. With pacemaker/ICD BNP on admission 698. Last BNP on file was 373 on 07/2010. Echo: (03/11/14): EF: 45% Repeat ECHO shows normal LV function with EF 57%. Sclerocalcific aortic root. Mild pulm HTN, mild MR. Meds: Continue Lasix 40 mg PO daily Continue Losartan 25 mg PO daily No Coreg 3.125 mg PO BID as patient reports a history of hypotension with this medication. Status: Acute (3) CAD (coronary artery disease) Assessment and Plan: CAD with stents, CABG. Troponins: 0.0390, 0.0480. EKG: (08/02/16): Ventricular-paced rhythm. Cardiac Cath: (03/12/14): Severe aortic stenosis, patent coronary bypass graphs , severe pulmonary hypertension. Continue Plavix 75 mg PO daily Continue Crestor 5 mg PO daily Continue Losartan 25 mg PO daily No Coreg 3.125 mg PO BID as patient reports a history of hypotension with this medication. Status: Acute (4) Aortic stenosis, severe Assessment and Plan: with TAVR Status: Acute (5) HTN (hypertension) Assessment and Plan: Continue Lasix 40 mg PO daily Continue Losartan 25 mg PO daily No Coreg 3.125 mg PO BID as patient reports a history of hypotension with this medication. Status: Acute Discussed with Dr. Aric Avila, - PGY 2 <Dieudonne Corbett - Last Filed: 08/08/16 19:47> Objective - Vital Signs/Intake and Output Vital Signs (last 24 hours): Temp Pulse Resp BP Pulse Ox 97.4 F L 64 20 127/57 L 96 08/08/16 15:00 08/08/16 15:00 08/08/16 15:00 08/08/16 15:00 08/08/16 15:00 Intake and Output: 08/08/16 08/09/16 18:59 06:59 Intake Total 400 Balance 400 - Medications Medications: Current Medications Acetaminophen (Tylenol 325mg Tab) 650 mg PO Q6 PRN PRN Reason: Fever >100.4 F Acetylcysteine (Acetylcysteine 20%) 4 ml INH RQ6 [facility] Last Admin: 08/08/16 13:39 Dose: 4 ml Albuterol/Ipratropium (Duoneb 3 Mg/0.5 Mg (3 Ml) Ud) 3 ml INH RQ6 [facility] Last Admin: 08/08/16 13:39 Dose: 3 ml Allopurinol (Zyloprim) 300 mg PO DAILY [facility] Last Admin: 08/08/16 09:39 Dose: 300 mg Clopidogrel Bisulfate (Plavix) 75 mg PO DAILY [facility] Last Admin: 08/08/16 09:39 Dose: 75 mg Enoxaparin Sodium (Lovenox) 40 mg SC DAILY [facility] Last Admin: 08/08/16 09:37 Dose: 40 mg Famotidine (Pepcid) 20 mg PO BID [facility] Last Admin: 08/08/16 18:32 Dose: 20 mg Furosemide (Lasix) 40 mg PO DAILY [facility] Last Admin: 08/08/16 09:38 Dose: 40 mg Guaifenesin (Robitussin) 400 mg PO Q4H PRN PRN Reason: Cough and congestion Last Admin: 08/08/16 18:32 Dose: 400 mg Azithromycin 500 mg/ Sodium (Chloride) 250 mls @ 250 mls/hr IVPB Q24H [facility] Last Admin: 08/07/16 22:58 Dose: 250 mls/hr Ceftriaxone Sodium 2 gm/ (Sodium Chloride) 100 mls @ 100 mls/hr IVPB Q24H [facility] Last Admin: 08/07/16 21:12 Dose: 100 mls/hr Losartan Potassium (Cozaar) 25 mg PO DAILY [facility] Last Admin: 08/08/16 09:39 Dose: 25 mg Methylprednisolone (Solu-Medrol) 40 mg IVP Q12 [facility] Last Admin: 08/08/16 09:39 Dose: 40 mg Ckfjr-[id number] Ethyl Esters (Lovaza) 1 gm PO BID [facility] Last Admin: 08/08/16 18:32 Dose: 1 gm Rosuvastatin Calcium (Crestor) 5 mg PO [facility] Last Admin: 08/07/16 21:11 Dose: 5 mg Theophylline (Brian-24) 200 mg PO DAILY [facility] Last Admin: 08/08/16 09:37 Dose: 200 mg - Labs Labs: 08/08/16 06:57 08/08/16 06:57 PT 12.5 SECONDS (9.7-12.2) H 08/03/16 08:09 INR 1.1 08/03/16 08:09 APTT 30 SECONDS (21-34) 08/03/16 08:09 Attending/Attestation - Attestation I have personally seen and examined this patient.: Yes I have fully participated in the care of the patient.: Yes I have reviewed all pertinent clinical information, including history, physical exam and plan: Yes Notes (Text): 08/08/16 19:47 pt for d/c much improved
[2016-08-08 08:26] LABS: NEUTROPHIL 91 % (50-75); TOTAL CELLS COUNTED 100
[2016-08-08] MEDS: Enoxaparin 40 mg Syringe SC SCH (09:37)
[2016-08-08] MEDS: Theophylline 200mg ER 24 hrs Cap PO SCH (09:37)
[2016-08-08] MEDS: Omega-3-Acid Ethyl Esters 1 GM Cap PO SCH ×2 (09:38→18:32)
[2016-08-08] MEDS: guaiFENesin 600 mg ER Tab PO SCH (09:39)
[2016-08-08] MEDS: MethylPREDNISolone 40 mg Vial IVP SCH ×2 (09:39→21:35)
[2016-08-08] MEDS ORDERED: Sod Polystyrene Sulf 15 gm/60 ml Oral Susp PO STA (09:43)
[2016-08-08] MEDS: guaiFENesin 200 mg/10 ml Syrup UD PO PRN ×3 (11:02→22:47)
--- NOTE | 2016-08-08 12:32 | RAD ---
HISTORY: BRONCHOPNEUMONIA COMPARISON: No prior. TECHNIQUE: Chest PA and lateral FINDINGS: LUNGS: Moderate to severe venous congestion with prominent bibasilar airspace opacities. Moderate loculated left and small right pleural effusion. PLEURA: As above. CARDIOVASCULAR: Cardiomegaly. Status post median sternotomy and CABG. Left-sided pacemaker. Calcification at the aortic knob. Stent and/or filter in place. OSSEOUS STRUCTURES: No significant abnormalities. VISUALIZED UPPER ABDOMEN: Surgical clips in the upper abdomen. OTHER FINDINGS: None. IMPRESSION: Moderate to severe venous congestion with prominent bibasilar airspace opacities. Moderate loculated left and small right pleural effusion.
--- NOTE | 2016-08-08 15:04 | CP.PCM.PN ---
<Odin Pacheco - Last Filed: 08/08/16 14:58> Subjective - Date & Time of Evaluation Date of Evaluation: 08/08/16 Time of Evaluation: :17 - Subjective Subjective: Pt seen and examined. Pt reports that he feels better than yesterday, but still congested and 'tight'. He reports that he is still short of breath. Pt denies fever, chills, chest pain, nausea, vomiting, diarrhea. Objective - Vital Signs/Intake and Output Vital Signs (last 24 hours): Temp Pulse Resp BP Pulse Ox 97.7 F 79 20 136/76 100 08/08/16 07:16 08/08/16 13:06 08/08/16 07:16 08/08/16 09:38 08/08/16 07:16 - Medications Medications: Current Medications Acetaminophen (Tylenol 325mg Tab) 650 mg PO Q6 PRN PRN Reason: Fever >100.4 F Acetylcysteine (Acetylcysteine 20%) 4 ml INH RQ6 [facility] Last Admin: 08/08/16 13:39 Dose: 4 ml Albuterol/Ipratropium (Duoneb 3 Mg/0.5 Mg (3 Ml) Ud) 3 ml INH RQ6 [facility] Last Admin: 08/08/16 13:39 Dose: 3 ml Allopurinol (Zyloprim) 300 mg PO DAILY [facility] Last Admin: 08/08/16 09:39 Dose: 300 mg Clopidogrel Bisulfate (Plavix) 75 mg PO DAILY [facility] Last Admin: 08/08/16 09:39 Dose: 75 mg Enoxaparin Sodium (Lovenox) 40 mg SC DAILY [facility] Last Admin: 08/08/16 09:37 Dose: 40 mg Famotidine (Pepcid) 20 mg PO BID [facility] Last Admin: 08/08/16 09:39 Dose: 20 mg Furosemide (Lasix) 40 mg PO DAILY [facility] Last Admin: 08/08/16 09:38 Dose: 40 mg Guaifenesin (Robitussin) 400 mg PO Q4H PRN PRN Reason: Cough and congestion Last Admin: 08/08/16 11:02 Dose: 400 mg Azithromycin 500 mg/ Sodium (Chloride) 250 mls @ 250 mls/hr IVPB Q24H [facility] Last Admin: 08/07/16 22:58 Dose: 250 mls/hr Ceftriaxone Sodium 2 gm/ (Sodium Chloride) 100 mls @ 100 mls/hr IVPB Q24H [facility] Last Admin: 08/07/16 21:12 Dose: 100 mls/hr Losartan Potassium (Cozaar) 25 mg PO DAILY [facility] Last Admin: 08/08/16 09:39 Dose: 25 mg Methylprednisolone (Solu-Medrol) 40 mg IVP Q12 [facility] Last Admin: 08/08/16 09:39 Dose: 40 mg Ctnib-8-Bchm Ethyl Esters (Lovaza) 1 gm PO BID [facility] Last Admin: 08/08/16 09:38 Dose: 1 gm Rosuvastatin Calcium (Crestor) 5 mg PO HS [facility] Last Admin: 08/07/16 21:11 Dose: 5 mg Theophylline (Brian-24) 200 mg PO DAILY [facility] Last Admin: 08/08/16 09:37 Dose: 200 mg - Labs Labs: 08/08/16 06:57 08/08/16 06:57 PT 12.5 SECONDS (9.7-12.2) H 08/03/16 08:09 INR 1.1 08/03/16 08:09 APTT 30 SECONDS (21-34) 08/03/16 08:09 - Constitutional Appears: No Acute Distress - Head Exam Head Exam: ATRAUMATIC, NORMOCEPHALIC - Eye Exam Eye Exam: EOMI, PERRL - ENT Exam ENT Exam: Mucous Membranes Moist. absent: Mucous Membranes Dry - Neck Exam Neck Exam: Full ROM - Respiratory Exam Respiratory Exam: Rhonchi, Wheezes - Cardiovascular Exam Cardiovascular Exam: Gallop, +S1, +S2 - GI/Abdominal Exam GI & Abdominal Exam: Soft. absent: Distended, Tenderness - Extremities Exam Extremities Exam: Pedal Edema Additional comments: Trace pedal edema - Neurological Exam Neurological Exam: Alert, Awake, Oriented x3 - Psychiatric Exam Psychiatric exam: Normal Affect, Normal Mood - Skin Skin Exam: Normal Color, Warm Assessment and Plan - Assessment and Plan (Free Text) Assessment: Pneumonia/Bronchitis: Infectious Disease, Dr. Dave, consulted. Help appreciated. Duonebs q6h Rocephin 2 gm IV q24h Azithromycin 500 mg IV q24h Solumedrol 40 mg IV q12h Theophylline 200 mg po qd Pulm, Dr. Patterson, consulted. Help appreciated. Mucomyst Q6h Chest PT Blood cultures negative after 4 days COPD Exacerbation: Duonebs q6h Rocephin 2 gm IV q24h Azithromycin 500 mg IV q24h Solumedrol 40 mg IV q12h Theophylline 200 mg po qd Pulm, Dr. Patterson, consulted. Help appreciated. Mucomyst Q6h CHF Exacerbation: Currently stable Troponins negative x 3 EKG - please see full report Pro-BNP 698 CXR- mild venous congestion, no significant interval changes (please see full report) Chest CT- mild bilateral pulmonary effusions (please see full report) Cardiology, Dr. Corbett, consulted. Help appreciated. Coreg 3.125 mg po bid Plavix 75 mg po qd Cozaar 25 mg po qd Cestor 5 mg po hs Lasix 40 mg po qd CAD: Plavix 75 mg po qd Lovaza 1 gm po bid HTN: Cozaar 25 mg po qd Cestor 5 mg po hs Hypercholesterolemia: Lovaza 1 gm po bid Cestor 5 mg po hs Prophylactic Measures: DVT: SCDs, Lovenox GI: Protonix 40 mg po qd <Lorenzo Hoang - Last Filed: 09/08/16 14:20> Objective - Vital Signs/Intake and Output Vital Signs (last 24 hours): Temp Pulse Resp BP Pulse Ox 98 F 72 20 130/62 99 08/09/16 07:00 08/09/16 07:00 08/09/16 07:00 08/09/16 09:17 08/09/16 07:00 - Labs Labs: 08/09/16 06:16 08/09/16 06:16 PT 12.5 SECONDS (9.7-12.2) H 08/03/16 08:09 INR 1.1 08/03/16 08:09 APTT 30 SECONDS (21-34) 08/03/16 08:09 Attending/Attestation - Attestation I have personally seen and examined this patient.: Yes I have fully participated in the care of the patient.: Yes I have reviewed all pertinent clinical information, including history, physical exam and plan: Yes Notes (Text): Patient Seen and examined with the resident. Agree with the resident's evaluation, assessment and plan. Acute Pneumonia/Bronchitis: COPD Exacerbation: Acute CHF Exacerbation: acute on chronic diastolic
[2016-08-08] MEDS: cefTRIAXone 2 GM in Sodium Chloride 0.9% 100 ML IVPB SCH (21:35)
--- NOTE | 2016-08-08 22:21 | CP.PCM.PN ---
Subjective - Date & Time of Evaluation Date of Evaluation: 08/07/16 Time of Evaluation: 22:20 - Subjective Subjective: Patient is still having cough, cough associate with the mucus production, but mostly dry. Using CPAP. Denies any chest pain. Shortness of breath noted On examination: Vital signs reviewed Chest good air entry, expiratory wheezing and rales noted regular heart sound nontender abdomen extended is no pedal edema Assessment and recommendation: 80-year-old male with history of multiple medical problems CAD CABG. COPD emphysematous lung disease left-sided pleural effusion I aortic valve replacement Continue the current treatment Mucomyst. Broncho-dilators tonight and will follow the patient Objective - Vital Signs/Intake and Output Vital Signs (last 24 hours): Temp Pulse Resp BP Pulse Ox 97.4 F L 64 20 127/57 L 96 08/08/16 15:00 08/08/16 20:01 08/08/16 15:00 08/08/16 15:00 08/08/16 15:00 Intake and Output: 08/08/16 08/09/16 18:59 06:59 Intake Total 400 Balance 400 - Medications Medications: Current Medications Acetaminophen (Tylenol 325mg Tab) 650 mg PO Q6 PRN PRN Reason: Fever >100.4 F Acetylcysteine (Acetylcysteine 20%) 4 ml INH RQ6 [facility] Last Admin: 08/08/16 19:59 Dose: 4 ml Albuterol/Ipratropium (Duoneb 3 Mg/0.5 Mg (3 Ml) Ud) 3 ml INH RQ6 [facility] Last Admin: 08/08/16 19:58 Dose: 3 ml Allopurinol (Zyloprim) 300 mg PO DAILY [facility] Last Admin: 08/08/16 09:39 Dose: 300 mg Clopidogrel Bisulfate (Plavix) 75 mg PO DAILY [facility] Last Admin: 08/08/16 09:39 Dose: 75 mg Enoxaparin Sodium (Lovenox) 40 mg SC DAILY [facility] Last Admin: 08/08/16 09:37 Dose: 40 mg Famotidine (Pepcid) 20 mg PO BID [facility] Last Admin: 08/08/16 18:32 Dose: 20 mg Furosemide (Lasix) 40 mg PO DAILY [facility] Last Admin: 08/08/16 09:38 Dose: 40 mg Guaifenesin (Robitussin) 400 mg PO Q4H PRN PRN Reason: Cough and congestion Last Admin: 08/08/16 18:32 Dose: 400 mg Azithromycin 500 mg/ Sodium (Chloride) 250 mls @ 250 mls/hr IVPB Q24H [facility] Last Admin: 08/07/16 22:58 Dose: 250 mls/hr Ceftriaxone Sodium 2 gm/ (Sodium Chloride) 100 mls @ 100 mls/hr IVPB Q24H [facility] Last Admin: 08/08/16 21:35 Dose: 100 mls/hr Losartan Potassium (Cozaar) 25 mg PO DAILY [facility] Last Admin: 08/08/16 09:39 Dose: 25 mg Methylprednisolone (Solu-Medrol) 40 mg IVP Q12 [facility] Last Admin: 08/08/16 21:35 Dose: 40 mg Xxmgc-2-Gyrh Ethyl Esters (Lovaza) 1 gm PO BID [facility] Last Admin: 08/08/16 18:32 Dose: 1 gm Rosuvastatin Calcium (Crestor) 5 mg PO HS [facility] Last Admin: 08/08/16 21:35 Dose: 5 mg Theophylline (Brian-24) 200 mg PO DAILY [facility] Last Admin: 08/08/16 09:37 Dose: 200 mg - Labs Labs: 08/08/16 06:57 08/08/16 06:57 PT 12.5 SECONDS (9.7-12.2) H 08/03/16 08:09 INR 1.1 08/03/16 08:09 APTT 30 SECONDS (21-34) 08/03/16 08:09 Assessment and Plan (1) CHF (congestive heart failure), NYHA class III Status: Chronic (2) Chr obstructive pulmonary disease w/ acute lower respiratory infxn Status: Acute
--- NOTE | 2016-08-08 22:22 | CP.PCM.PN ---
Subjective - Date & Time of Evaluation Date of Evaluation: 08/08/16 Time of Evaluation: 22:22 - Subjective Subjective: Patient is still having cough, cough associate with the mucus production, but mostly dry. Using CPAP. Denies any chest pain. Shortness of breath noted On examination: Vital signs reviewed Chest good air entry, expiratory wheezing and rales noted regular heart sound nontender abdomen extended is no pedal edema Assessment and recommendation: 80-year-old male with history of multiple medical problems CAD CABG. COPD emphysematous lung disease left-sided pleural effusion I aortic valve replacement Continue the current treatment Mucomyst. Broncho-dilators tonight and will follow the patient Spoke to the patient in detail. We will continue the Mucomyst and broncho-dilators. Taper the styloid. Continue the lasix Will follow the patient Objective - Vital Signs/Intake and Output Vital Signs (last 24 hours): Temp Pulse Resp BP Pulse Ox 97.4 F L 64 20 127/57 L 96 08/08/16 15:00 08/08/16 20:01 08/08/16 15:00 08/08/16 15:00 08/08/16 15:00 Intake and Output: 08/08/16 08/09/16 18:59 06:59 Intake Total 400 Balance 400 - Medications Medications: Current Medications Acetaminophen (Tylenol 325mg Tab) 650 mg PO Q6 PRN PRN Reason: Fever >100.4 F Acetylcysteine (Acetylcysteine 20%) 4 ml INH RQ6 [facility] Last Admin: 08/08/16 19:59 Dose: 4 ml Albuterol/Ipratropium (Duoneb 3 Mg/0.5 Mg (3 Ml) Ud) 3 ml INH RQ6 [facility] Last Admin: 08/08/16 19:58 Dose: 3 ml Allopurinol (Zyloprim) 300 mg PO DAILY [facility] Last Admin: 08/08/16 09:39 Dose: 300 mg Clopidogrel Bisulfate (Plavix) 75 mg PO DAILY [facility] Last Admin: 08/08/16 09:39 Dose: 75 mg Enoxaparin Sodium (Lovenox) 40 mg SC DAILY [facility] Last Admin: 08/08/16 09:37 Dose: 40 mg Famotidine (Pepcid) 20 mg PO BID [facility] Last Admin: 08/08/16 18:32 Dose: 20 mg Furosemide (Lasix) 40 mg PO DAILY [facility] Last Admin: 08/08/16 09:38 Dose: 40 mg Guaifenesin (Robitussin) 400 mg PO Q4H PRN PRN Reason: Cough and congestion Last Admin: 08/08/16 18:32 Dose: 400 mg Azithromycin 500 mg/ Sodium (Chloride) 250 mls @ 250 mls/hr IVPB Q24H [facility] Last Admin: 08/07/16 22:58 Dose: 250 mls/hr Ceftriaxone Sodium 2 gm/ (Sodium Chloride) 100 mls @ 100 mls/hr IVPB Q24H [facility] Last Admin: 08/08/16 21:35 Dose: 100 mls/hr Losartan Potassium (Cozaar) 25 mg PO DAILY [facility] Last Admin: 08/08/16 09:39 Dose: 25 mg Methylprednisolone (Solu-Medrol) 40 mg IVP Q12 [facility] Last Admin: 08/08/16 21:35 Dose: 40 mg Jmevd-6-Etcy Ethyl Esters (Lovaza) 1 gm PO BID [facility] Last Admin: 08/08/16 18:32 Dose: 1 gm Rosuvastatin Calcium (Crestor) 5 mg PO HS [facility] Last Admin: 08/08/16 21:35 Dose: 5 mg Theophylline (Brian-24) 200 mg PO DAILY [facility] Last Admin: 08/08/16 09:37 Dose: 200 mg - Labs Labs: 08/08/16 06:57 08/08/16 06:57 PT 12.5 SECONDS (9.7-12.2) H 08/03/16 08:09 INR 1.1 08/03/16 08:09 APTT 30 SECONDS (21-34) 08/03/16 08:09 Assessment and Plan (1) CHF (congestive heart failure), NYHA class III Status: Chronic (2) Chr obstructive pulmonary disease w/ acute lower respiratory infxn Status: Acute
[2016-08-08] MEDS ORDERED: MethylPREDNISolone 40 mg Vial IVP SCH (22:23)
[2016-08-08] MEDS: Azithromycin 500 MG in Sodium Chloride 0.9% 250 ML IVPB SCH (22:46)
[2016-08-09] MEDS: Albuterol-Ipratrop 3 mg / 0.5 (3 ml) UD INH SCH ×3 (03:36→13:49)
[2016-08-09 06:55] LABS: HEMATOCRIT 37.1 % (35.0-51.0); LYMPH # 0.4 K/uL (1.0-4.3); LYMPH % 4.1 % (20.0-40.0); MEAN CELL VOLUME 93.9 fL (80.0-94.0); MEAN CORPUSCULAR HEMOGLOBIN 30.1 pg (27.0-31.0); MEAN CORPUSCULAR HGB CONC 32.1 g/dL (33.0-37.0); MEAN PLATELET VOLUME 7.7 fL (7.2-11.7); MONO # 0.3 K/uL (0.0-0.8); MONO % 2.8 % (0.0-10.0); PLATELET COUNT 245 K/uL (130-400); RED CELL DISTRIBUTION WIDTH 17.3 % (11.5-14.5); WHITE BLOOD COUNT 10.2 K/uL (4.8-10.8)
[2016-08-09 07:18] LABS: CHLORIDE 94 mmol/L (98-107); POTASSIUM 4.6 mmol/L (3.6-5.2); SODIUM 138 mmol/L (132-148)
[2016-08-09 07:20] LABS: GFR AFRICAN-AMERICAN > 60
[2016-08-09 07:21] LABS: ALB/GLOB RATIO 1.3 (1.0-2.1); ALKALINE PHOSPHATASE 51 U/L (38-126); ALT/SGPT 46 U/L (21-72); AST/SGOT 41 U/L (17-59); BILIRUBIN,TOTAL 0.9 mg/dL (0.2-1.3); BLOOD UREA NITROGEN 35 mg/dL (9-20); CARBON DIOXIDE 34 mmol/L (22-30); GLUCOSE,RANDOM 188 mg/dL (75-110); TOTAL PROTEIN 6.3 g/dL (6.3-8.3)
[2016-08-09 07:22] LABS: CALCIUM 7.7 mg/dl (8.6-10.4)
[2016-08-09] MEDS: guaiFENesin 200 mg/10 ml Syrup UD PO PRN (07:52)
[2016-08-09] MEDS ORDERED: Acetylcysteine 20% Inhal Soln (4ml) INH SCH (08:00)
[2016-08-09 08:12] VITALS: TEMP 98; O2SAT 99
[2016-08-09 08:21] VITALS: PULSE 72
[2016-08-09 08:25] LABS: NEUTROPHIL 92 % (50-75); TOTAL CELLS COUNTED 100
[2016-08-09] MEDS: Enoxaparin 40 mg Syringe SC SCH (09:17)
[2016-08-09 09:21] VITALS: BP 130/62
[2016-08-09] MEDS: Omega-3-Acid Ethyl Esters 1 GM Cap PO SCH (09:26)
[2016-08-09] MEDS: Theophylline 200mg ER 24 hrs Cap PO SCH (09:26)
--- NOTE | 2016-08-09 11:07 | CP.PCM.PN ---
<Elvis Larson - Last Filed: 08/09/16 11:02> Subjective - Date & Time of Evaluation Date of Evaluation: 08/09/16 Time of Evaluation: 07:35 - Subjective Subjective: Cardiology progress note Dr Corbett Patient seen and examined at the bedside. No acute distress, resting comfortably in bed. No acute events overnight as per patient and nursing. No chest pain, and shortness of breath is improved, but patient still complains of feeling of heavy mucous in his lungs that he isn't able to clear. Some lower extremity edema, but unchanged as per patient. The patient denies other cardiopulmonary complaints. 12 point review of systems was completed and returned negative aside from the above stated complaints. Objective - Vital Signs/Intake and Output Vital Signs (last 24 hours): Temp Pulse Resp BP Pulse Ox 98 F 72 20 130/62 99 08/09/16 07:00 08/09/16 07:00 08/09/16 07:00 08/09/16 09:17 08/09/16 07:00 - Medications Medications: Current Medications Acetaminophen (Tylenol 325mg Tab) 650 mg PO Q6 PRN PRN Reason: Fever >100.4 F Acetylcysteine (Acetylcysteine 20%) 4 ml INH RQ12 [facility] Last Admin: 08/09/16 07:46 Dose: 4 ml Albuterol/Ipratropium (Duoneb 3 Mg/0.5 Mg (3 Ml) Ud) 3 ml INH RQ6 [facility] Last Admin: 08/09/16 07:46 Dose: 3 ml Allopurinol (Zyloprim) 300 mg PO DAILY [facility] Last Admin: 08/09/16 09:17 Dose: 300 mg Clopidogrel Bisulfate (Plavix) 75 mg PO DAILY [facility] Last Admin: 08/09/16 09:17 Dose: 75 mg Enoxaparin Sodium (Lovenox) 40 mg SC DAILY [facility] Last Admin: 08/09/16 09:17 Dose: 40 mg Famotidine (Pepcid) 20 mg PO BID [facility] Last Admin: 08/09/16 09:17 Dose: 20 mg Furosemide (Lasix) 40 mg PO DAILY [facility] Last Admin: 08/09/16 09:17 Dose: 40 mg Guaifenesin (Robitussin) 400 mg PO Q4H PRN PRN Reason: Cough and congestion Last Admin: 08/09/16 07:52 Dose: 400 mg Azithromycin 500 mg/ Sodium (Chloride) 250 mls @ 250 mls/hr IVPB Q24H [facility] Last Admin: 08/08/16 22:46 Dose: 250 mls/hr Ceftriaxone Sodium 2 gm/ (Sodium Chloride) 100 mls @ 100 mls/hr IVPB Q24H [facility] Last Admin: 08/08/16 21:35 Dose: 100 mls/hr Losartan Potassium (Cozaar) 25 mg PO DAILY [facility] Last Admin: 08/09/16 09:17 Dose: 25 mg Methylprednisolone (Solu-Medrol) 20 mg IVP Q12 [facility] Last Admin: 08/09/16 09:16 Dose: 20 mg [id number] Ethyl Esters (Lovaza) 1 gm PO BID [facility] Last Admin: 08/09/16 09:26 Dose: 1 gm Rosuvastatin Calcium (Crestor) 5 mg PO HS [facility] Last Admin: 08/08/16 21:35 Dose: 5 mg Theophylline (Brian-24) 200 mg PO DAILY [facility] Last Admin: 08/09/16 09:26 Dose: 200 mg - Labs Labs: 08/09/16 06:16 08/09/16 06:16 PT 12.5 SECONDS (9.7-12.2) H 08/03/16 08:09 INR 1.1 08/03/16 08:09 APTT 30 SECONDS (21-34) 08/03/16 08:09 - Additional Findings Additional findings: - Constitutional Appears: Well, Non-toxic, No Acute Distress - Head Exam Head Exam: ATRAUMATIC, NORMAL INSPECTION, NORMOCEPHALIC - Eye Exam Eye Exam: EOMI, Normal appearance. absent: Conjunctival injection, Scleral icterus Pupil Exam: absent: Irregular, Unequal - ENT Exam ENT Exam: Mucous Membranes Moist - Neck Exam Neck Exam: absent: Tenderness, JVD - Respiratory Exam Respiratory Exam: Decreased Breath Sounds (Moderately decreased breath sounds in all downs), Ronchi (bilateral bases, R>L), Wheezes (mild end-expiratory wheezing most prominent in upper lobes). absent: Chest Wall Tenderness, Rales, Respiratory distress - Cardiovascular Exam Cardiovascular Exam: REGULAR RHYTHM, RRR, +S1, +S2. absent: Bradycardia, Tachycardia, Clicks, Irregular Rhythm, +S4 - GI/Abdominal Exam GI & Abdominal Exam: Soft, Normal Bowel Sounds. absent: Distended (obese but not distended), Firm, Rigid, Tenderness, Diminished Bowel Sounds, Hyperactive Bowel Sounds, Hypoactive Bowel Sounds - Extremities Exam Extremities Exam: Pedal Edema (+1 pitting edema in bilateral LE below the knees) , Reddened and waxy skin in bilateral LE (unchanged from prior exam). absent: Calf Tenderness, Tenderness - Back Exam Back Exam: NORMAL INSPECTION. absent: rash noted - Neurological Exam Neurological Exam: Alert, Awake, CN II-XII Intact - Psychiatric Exam Psychiatric exam: Normal Affect, Normal Mood - Skin Skin Exam: Dry, Intact, Normal Color (except as noted in Extremities exam), Warm Assessment and Plan (1) Dyspnea Assessment & Plan: CXR 08/02/16: cardiomegaly with mild venous congestion. Left basilar airspace opacity which may represent effusion versus atelectasis versus infiltrate. Chest CT 08/03/16: Small bilateral pleural effusions, mild dependent atelectasis EKG 08/02/16: Atrial sensed Biventricularly-paced rhythm, HR 81, QTc prolonged at 483 EKG 03/10/14: accelerated junctional rhythm with frequent/consecutive PVCs and fusion complexes. Inferior infarct, age undetermined, T wave abnormality, consider lateral ischemia. Echo 08/04/16: EF 57%, Normal LV wall thickness, mild septal wall hypokinesis, Grade-I abnormal relaxation doppler flow pattern, Mild MR/TR, Mild Pulm HTN, severe sclerocalcific changes of aortic root Echo 03/11/14: EF: 45%, mild concentric LVH, severely impair systolic fxn, Septal hypokinesis, calcified aortic valve with decreased opening, Trace AR, Mild valvular and TR, mild-mod Pulm HTN Cardiac Cath 03/12/14: Severe aortic stenosis, patent coronary bypass graphs, severe pulmonary hypertension. Troponins: 0.0390, 0.0480 -Likely COPD exacerbation vs 2/2 infectious etiology; less likely CHF exacerbation vs ACS -Less likely ACS given trops and EKG findings, lack of chest pain -Shortness of breath improved but not resolved -Repeat Echo shows improved EF, mild pulm HTN -Continue all cardiac meds, continue medical management -Further management as per Primary team Status: Acute (2) CHF (congestive heart failure), NYHA class III Assessment & Plan: CXR 08/02/16: cardiomegaly with mild venous congestion. Left basilar airspace opacity which may represent effusion versus atelectasis versus infiltrate. Chest CT 08/03/16: Small bilateral pleural effusions, mild dependent atelectasis EKG 08/02/16: Atrial sensed Biventricularly-paced rhythm, HR 81, QTc prolonged at 483 EKG 03/10/14: accelerated junctional rhythm with frequent/consecutive PVCs and fusion complexes. Inferior infarct, age undetermined, T wave abnormality, consider lateral ischemia. Echo 08/04/16: EF 57%, Normal LV wall thickness, mild septal wall hypokinesis, Grade-I abnormal relaxation doppler flow pattern, Mild MR/TR, Mild Pulm HTN, severe sclerocalcific changes of aortic root Echo 03/11/14: EF: 45%, mild concentric LVH, severely impair systolic fxn, Septal hypokinesis, calcified aortic valve with decreased opening, Trace AR, Mild valvular and TR, mild-mod Pulm HTN Cardiac Cath 03/12/14: Severe aortic stenosis, patent coronary bypass graphs, severe pulmonary hypertension. Troponins: 0.0390, 0.0480 -Patient follows with Dr. Donnelly as outpatient. -Pacer/ICD in place, EKG shows biventricularly paced rhythm -BNP on admission 698 -Continue Diuresis with Lasix, continue Losartan -continue medical management, no further Coreg given hx of hypotensive episodes on Coreg Status: Chronic (3) CAD (coronary artery disease) Assessment & Plan: CXR 08/02/16: cardiomegaly with mild venous congestion. Left basilar airspace opacity which may represent effusion versus atelectasis versus infiltrate. Chest CT 08/03/16: Small bilateral pleural effusions, mild dependent atelectasis EKG 08/02/16: Atrial sensed Biventricularly-paced rhythm, HR 81, QTc prolonged at 483 EKG 03/10/14: accelerated junctional rhythm with frequent/consecutive PVCs and fusion complexes. Inferior infarct, age undetermined, T wave abnormality, consider lateral ischemia. Echo 08/04/16: EF 57%, Normal LV wall thickness, mild septal wall hypokinesis, Grade-I abnormal relaxation doppler flow pattern, Mild MR/TR, Mild Pulm HTN, severe sclerocalcific changes of aortic root Echo 03/11/14: EF: 45%, mild concentric LVH, severely impair systolic fxn, Septal hypokinesis, calcified aortic valve with decreased opening, Trace AR, Mild valvular and TR, mild-mod Pulm HTN Cardiac Cath 03/12/14: Severe aortic stenosis, patent coronary bypass graphs, severe pulmonary hypertension. Troponins: 0.0390, 0.0480 -Hx CAD with stents, CABG -continue Antiplatelets (ASA/Plavix), continue statin -continue to monitor Status: Chronic (4) HTN (hypertension) Assessment & Plan: CXR 08/02/16: cardiomegaly with mild venous congestion. Left basilar airspace opacity which may represent effusion versus atelectasis versus infiltrate. Chest CT 08/03/16: Small bilateral pleural effusions, mild dependent atelectasis EKG 08/02/16: Atrial sensed Biventricularly-paced rhythm, HR 81, QTc prolonged at 483 EKG 03/10/14: accelerated junctional rhythm with frequent/consecutive PVCs and fusion complexes. Inferior infarct, age undetermined, T wave abnormality, consider lateral ischemia. Echo 08/04/16: EF 57%, Normal LV wall thickness, mild septal wall hypokinesis, Grade-I abnormal relaxation doppler flow pattern, Mild MR/TR, Mild Pulm HTN, severe sclerocalcific changes of aortic root Echo 03/11/14: EF: 45%, mild concentric LVH, severely impair systolic fxn, Septal hypokinesis, calcified aortic valve with decreased opening, Trace AR, Mild valvular and TR, mild-mod Pulm HTN Cardiac Cath 03/12/14: Severe aortic stenosis, patent coronary bypass graphs, severe pulmonary hypertension. Troponins: 0.0390, 0.0480 -Hx CAD, CHF in addition to HTN -control with Lasix and Losartan -BPs wnl, intermittently low diastolic BP but otherwise unremarkable -Continue medical management, continue to monitor Status: Chronic (5) Aortic stenosis, severe Assessment & Plan: CXR 08/02/16: cardiomegaly with mild venous congestion. Left basilar airspace opacity which may represent effusion versus atelectasis versus infiltrate. EKG 08/02/16: Atrial sensed Biventricularly-paced rhythm, HR 81, QTc prolonged at 483 EKG 03/10/14: accelerated junctional rhythm with frequent/consecutive PVCs and fusion complexes. Inferior infarct, age undetermined, T wave abnormality, consider lateral ischemia. Echo 08/04/16: EF 57%, Normal LV wall thickness, mild septal wall hypokinesis, Grade-I abnormal relaxation doppler flow pattern, Mild MR/TR, Mild Pulm HTN, severe sclerocalcific changes of aortic root Echo 03/11/14: EF: 45%, mild concentric LVH, severely impair systolic fxn, Septal hypokinesis, calcified aortic valve with decreased opening, Trace AR, Mild valvular and TR, mild-mod Pulm HTN Cardiac Cath 03/12/14: Severe aortic stenosis, patent coronary bypass graphs, severe pulmonary hypertension. 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 Corbett <Dieudonne Corbett - Last Filed: 08/11/16 20:18> Objective - Vital Signs/Intake and Output Vital Signs (last 24 hours): Temp Pulse Resp BP Pulse Ox 98 F 72 20 130/62 99 08/09/16 07:00 08/09/16 07:00 08/09/16 07:00 08/09/16 09:17 08/09/16 07:00 - Labs Labs: 08/09/16 06:16 08/09/16 06:16 PT 12.5 SECONDS (9.7-12.2) H 08/03/16 08:09 INR 1.1 08/03/16 08:09 APTT 30 SECONDS (21-34) 08/03/16 08:09 Attending/Attestation - Attestation I have personally seen and examined this patient.: Yes I have fully participated in the care of the patient.: Yes I have reviewed all pertinent clinical information, including history, physical exam and plan: Yes Notes (Text): 08/11/16 20:17 pt much improved off abx follow up with Dr Andrzej KONG
--- NOTE | 2016-08-09 19:06 | CP.PCM.DIS ---
<Kishan Pachecokan - Last Filed: 08/23/16 12:59> Provider - Provider Date of Admission: 08/02/16 20:58 Attending physician: Lorenzo Hoang MD Time Spent in preparation of Discharge (in minutes): 37 Hospital Course - Lab Results Lab Results: Most Recent Lab Values WBC 10.2 K/uL (4.8-10.8) 08/09/16 06:16 RBC 3.95 Mil/uL (4.40-5.90) L 08/09/16 06:16 Hgb 11.9 g/dL (12.0-18.0) L 08/09/16 06:16 Hct 37.1 % (35.0-51.0) 08/09/16 06:16 MCV 93.9 fL (80.0-94.0) 08/09/16 06:16 MCH 30.1 pg (27.0-31.0) 08/09/16 06:16 MCHC 32.1 g/dL (33.0-37.0) L 08/09/16 06:16 RDW 17.3 % (11.5-14.5) H 08/09/16 06:16 Plt Count 245 K/uL (130-400) 08/09/16 06:16 MPV 7.7 fL (7.2-11.7) 08/09/16 06:16 Neut % (Auto) 93.1 % (50.0-75.0) H 08/09/16 06:16 Lymph % (Auto) 4.1 % (20.0-40.0) L 08/09/16 06:16 [place] % (Auto) 2.8 % (0.0-10.0) 08/09/16 06:16 Eos % (Auto) 0.0 % (0.0-4.0) 08/09/16 06:16 Baso % (Auto) 0.0 % (0.0-2.0) 08/09/16 06:16 Neut # 9.5 K/uL (1.8-7.0) H 08/09/16 06:16 Lymph # 0.4 K/uL (1.0-4.3) L 08/09/16 06:16 [place] # 0.3 K/uL (0.0-0.8) 08/09/16 06:16 Eos # 0.0 K/uL (0.0-0.7) 08/09/16 06:16 Baso # 0.0 K/uL (0.0-0.2) 08/09/16 06:16 Neutrophils % (Manual) 92 % (50-75) H 08/09/16 06:16 Band Neutrophils % 1 % (0-2) 08/09/16 06:16 Lymphocytes % (Manual) 4 % (20-40) L 08/09/16 06:16 Monocytes % (Manual) 3 % (0-10) 08/09/16 06:16 Platelet Estimate Normal (NORMAL) 08/09/16 06:16 Large Platelets Present 08/03/16 08:09 Giant Platelets Present 08/03/16 08:09 Polychromasia Slight 08/06/16 06:40 Hypochromasia (manual) Slight 08/08/16 06:57 Poikilocytosis (manual Slight 08/09/16 06:16 Anisocytosis (manual) Slight 08/09/16 06:16 Microcytosis (manual) Slight 08/05/16 07:15 Macrocytosis (manual) Slight 08/06/16 06:40 Tear Drop Cells Slight 08/08/16 06:57 Ovalocytes Slight 08/09/16 06:16 Schistocytes Slight 08/06/16 06:40 PT 12.5 SECONDS (9.7-12.2) H 08/03/16 08:09 INR 1.1 08/03/16 08:09 APTT 30 SECONDS (21-34) 08/03/16 08:09 Puncture Site Rra 08/02/16 18:30 pCO2 51 mm/Hg (35-45) H 08/02/16 18:30 pO2 52 mm/Hg (80-100) L 08/02/16 18:30 HCO3 31.9 mmol/L (21-28) H 08/02/16 18:30 ABG pH 7.44 (7.35-7.45) 08/02/16 18:30 ABG Total CO2 36.2 mmol/L (22-28) H 08/02/16 18:30 ABG O2 Saturation 91.3 % (95-98) L 08/02/16 18:30 ABG Base Excess 9.1 mmol/L (-2.0-3.0) H 08/02/16 18:30 ABG Hemoglobin 10.6 g/dL (11.7-17.4) L 08/02/16 18:30 ABG Carboxyhemoglobin 1.7 % (0.5-1.5) H 08/02/16 18:30 POC ABG HHb (Measured) 8.5 % (0.0-5.0) H 08/02/16 18:30 ABG Methemoglobin 0.4 % (0.0-3.0) 08/02/16 18:30 Yahir Test Pos 08/02/16 18:30 A-a O2 Difference 55.0 mm/Hg 08/02/16 18:30 Respiratory Index 1.1 08/02/16 18:30 Hgb O2 Saturation 89.3 % (95.0-98.0) L 08/02/16 18:30 FiO2 24.0 % 08/02/16 18:30 Sodium 138 mmol/L (132-148) 08/09/16 06:16 Potassium 4.6 mmol/L (3.6-5.2) 08/09/16 06:16 Chloride 94 mmol/L (98-107) L 08/09/16 06:16 Carbon Dioxide 34 mmol/L (22-30) H 08/09/16 06:16 Anion Gap 15 (10-20) 08/09/16 06:16 BUN 35 mg/dL (9-20) H 08/09/16 06:16 Creatinine 1.1 MG/DL (0.8-1.5) 08/09/16 06:16 Est GFR ( Amer) > 60 08/09/16 06:16 Est GFR (Non-Af Amer) > 60 08/09/16 06:16 POC Glucose (mg/dL) 166 mg/dL (65-110) H 08/09/16 11:20 Random Glucose 188 mg/dL (75-110) H 08/09/16 06:16 Hemoglobin A1c 6.0 % (4.2-6.5) 08/02/16 23:11 Calcium 7.7 mg/dl (8.6-10.4) L 08/09/16 06:16 Phosphorus 4.8 mg/dL (2.5-4.5) H 08/08/16 06:57 Magnesium 3.0 mg/dL (1.6-2.3) H 08/08/16 06:57 Total Bilirubin 0.9 mg/dL (0.2-1.3) 08/09/16 06:16 AST 41 U/L (17-59) 08/09/16 06:16 ALT 46 U/L (21-72) 08/09/16 06:16 Alkaline Phosphatase 51 U/L (38-126) 08/09/16 06:16 Total Creatine Kinase 98 U/L (55-170) 08/03/16 08:09 CK-MB (Mass) 0.89 ng/mL (0.0-3.38) 08/03/16 08:09 Troponin I 0.0390 ng/mL (0.00-0.120) 08/02/16 18:18 Troponin I, Quant 0.0360 ng/mL (0.00-0.120) 08/03/16 08:09 NT-Pro-B Natriuret Pep 698 pg/mL (0-900) 08/02/16 18:18 Total Protein 6.3 g/dL (6.3-8.3) 08/09/16 06:16 Albumin 3.5 g/dL (3.5-5.0) 08/09/16 06:16 Globulin 2.8 gm/dL (2.2-3.9) 08/09/16 06:16 Albumin/Globulin Ratio 1.3 (1.0-2.1) 08/09/16 06:16 Procalcitonin < 0.05 NG/ML (0.19-0.49) L 08/05/16 19:48 Thyroxine (T4) 5.55 ug/dL (5.5-11.0) 08/02/16 23:11 TSH 3rd Generation 2.02 mIU/L (0.46-4.68) 08/02/16 23:11 Urine Color Yellow (YELLOW) 08/02/16 20:53 Urine Clarity Clear (Clear) 08/02/16 20:53 Urine pH 7.0 (5.0-8.0) 08/02/16 20:53 Ur Specific [place] 1.012 (1.003-1.030) 08/02/16 20:53 Urine Protein Negative mg/dL (NEGATIVE) 08/02/16 20:53 Urine Glucose (UA) Normal mg/dL (Normal) 08/02/16 20:53 Urine Ketones Negative mg/dL (NEGATIVE) 08/02/16 20:53 Urine Blood Negative (NEGATIVE) 08/02/16 20:53 Urine Nitrate Negative (NEGATIVE) 08/02/16 20:53 Urine Bilirubin Negative (NEGATIVE) 08/02/16 20:53 Urine Urobilinogen 2.0 mg/dL (0.2-1.0) 08/02/16 20:53 Ur Leukocyte Esterase Neg [place]/uL (Negative) 08/02/16 20:53 Urine RBC (Auto) < 1 /hpf (0-3) 08/02/16 20:53 Ur Squamous Epith Cells < 1 /hpf (0-5) 08/02/16 20:53 Influenza Typ A,B (EIA) Negative for flu a/b (NEGATIVE) 08/02/16 21:43 Ur L.pneumophila Ag Negative (NEGATIVE) 08/05/16 19:48 Mycoplasma pneumon IgM Negative (NEGATIVE) 08/05/16 19:48 - Hospital Course Hospital Course: HPI: Pt is a 80 M with PMH of CHF, COPD, s/p pacemaker/defibrillator, CAD with stents, CABG, valve replacement, HTN, HLD presents to [facility] ED with complaint of difficulty breathing, fever, and cough for 4 days. Patient stated that he has had worsening symptoms since about Sunday. Today he went to his spooler and he recommended that the patient come to the hospital for treatment. Patient stated that he never had these symptoms before but his stated that he was treated for bronchitis last year. Patient currently denying any pain. Patient sleeps at night with head elevated at about 30 degrees. He does not know when he had last ECHO. He can only ambulate 10-20 feet or 1 flight of stairs before getting fatigued. Admits to fever/chills, sob, palpitations, LE edema, cough. Denies cp, abd pain, n/v/d, constipation, incontinence, numbness/tingling. Hospital Course: Pt was hospitalized for a primary diagnosis of pneumonia/ bronchitis. Infectious disease, Dr. Dave, was consulted. Pt was started on IV rocephin and azithromycin. Pulmonology, Dr. Reyna, was consulted. Pt was also started on IV steroids. CXR revealed mild venous congestion, no significant interval changes (please see full report). Chest CT revealed mild bilateral pulmonary effusions (please see full report). Cardiology, Dr. Corbett, was consulted. Cardiac enzymes were negative x 3. Pro-BNP was 698. Pt was also started on theophylline and mucomyst to help thin secretions. Pt was also given chest PT. Blood cultures were negative x 4. Pt was started on coreg, plavix, cozaar, crestor, and lasix, all CAD and CHF medications. Discharge Exam - Head Exam Head Exam: ATRAUMATIC, NORMOCEPHALIC - Eye Exam Eye Exam: EOMI, PERRL - ENT Exam ENT Exam: Mucous Membranes Moist. absent: Mucous Membranes Dry - Neck Exam Neck exam: Full Rom - Respiratory Exam Respiratory Exam: Rhonchi Additional comments: rhonchi much improved - Cardiovascular Exam Cardiovascular Exam: Gallop, +S1, +S2 - GI/Abdominal Exam GI & Abdominal Exam: Normal Bowel Sounds, Soft. absent: Tenderness - Extremities Exam Extremities exam: full ROM - Neurological Exam Neurological exam: Alert, Oriented x3 - Psychiatric Exam Psychiatric exam: Normal Affect, Normal Mood - Skin Skin Exam: Warm Additional comments: b/l venous stasis Discharge Plan - Discharge Medications Prescriptions: Azithromycin [Zithromax Tri-Saleem] 500 mg PO DAILY #3 tablet Cefpodoxime [Vantin] 200 mg PO Q12H #6 tab Methylprednisolone [Medrol Dose Pack (21 tabs)] 4 mg PO DAILY #21 mg Saccharomyces Boulardii [Florastor 33 mg-250 mg] 1 cap PO TID #15 cap - Follow Up Plan Condition: STABLE Disposition: HOME/ ROUTINE Instructions: Azithromycin (By mouth), Cefpodoxime Proxetil (By mouth), Methylprednisolone (By mouth), Heart Failure (DC), Heart Healthy Diet (DC), COPD (Chronic Obstructive Pulmonary Disease) (DC), Pneumonia (DC) Additional Instructions: Please resume all home medications. Please take newly prescribed medications, azithromycin, vantin, florastor, and medrol dose pack, as prescribed. Please follow up with spooler, Dr. Read, within one week. Please return to the hospital if symptoms worsen or new symptoms arise. Referrals: Rolo Read MD [Staff Provider] - <Lorenzo Hoang - Last Filed: 09/08/16 14:21> Provider - Provider Date of Admission: 08/02/16 20:58 Attending physician: Lorenzo Hoang MD Hospital Course - Lab Results Lab Results: Most Recent Lab Values WBC 10.2 K/uL (4.8-10.8) 08/09/16 06:16 RBC 3.95 Mil/uL (4.40-5.90) L 08/09/16 06:16 Hgb 11.9 g/dL (12.0-18.0) L 08/09/16 06:16 Hct 37.1 % (35.0-51.0) 08/09/16 06:16 MCV 93.9 fL (80.0-94.0) 08/09/16 06:16 MCH 30.1 pg (27.0-31.0) 08/09/16 06:16 MCHC 32.1 g/dL (33.0-37.0) L 08/09/16 06:16 RDW 17.3 % (11.5-14.5) H 08/09/16 06:16 Plt Count 245 K/uL (130-400) 08/09/16 06:16 MPV 7.7 fL (7.2-11.7) 08/09/16 06:16 Neut % (Auto) 93.1 % (50.0-75.0) H 08/09/16 06:16 Lymph % (Auto) 4.1 % (20.0-40.0) L 08/09/16 06:16 [place] % (Auto) 2.8 % (0.0-10.0) 08/09/16 06:16 Eos % (Auto) 0.0 % (0.0-4.0) 08/09/16 06:16 Baso % (Auto) 0.0 % (0.0-2.0) 08/09/16 06:16 Neut # 9.5 K/uL (1.8-7.0) H 08/09/16 06:16 Lymph # 0.4 K/uL (1.0-4.3) L 08/09/16 06:16 [place] # 0.3 K/uL (0.0-0.8) 08/09/16 06:16 Eos # 0.0 K/uL (0.0-0.7) 08/09/16 06:16 Baso # 0.0 K/uL (0.0-0.2) 08/09/16 06:16 Neutrophils % (Manual) 92 % (50-75) H 08/09/16 06:16 Band Neutrophils % 1 % (0-2) 08/09/16 06:16 Lymphocytes % (Manual) 4 % (20-40) L 08/09/16 06:16 Monocytes % (Manual) 3 % (0-10) 08/09/16 06:16 Platelet Estimate Normal (NORMAL) 08/09/16 06:16 Large Platelets Present 08/03/16 08:09 Giant Platelets Present 08/03/16 08:09 Polychromasia Slight 08/06/16 06:40 Hypochromasia (manual) Slight 08/08/16 06:57 Poikilocytosis (manual Slight 08/09/16 06:16 Anisocytosis (manual) Slight 08/09/16 06:16 Microcytosis (manual) Slight 08/05/16 07:15 Macrocytosis (manual) Slight 08/06/16 06:40 Tear Drop Cells Slight 08/08/16 06:57 Ovalocytes Slight 08/09/16 06:16 Schistocytes Slight 08/06/16 06:40 PT 12.5 SECONDS (9.7-12.2) H 08/03/16 08:09 INR 1.1 08/03/16 08:09 APTT 30 SECONDS (21-34) 08/03/16 08:09 Puncture Site Rra 08/02/16 18:30 pCO2 51 mm/Hg (35-45) H 08/02/16 18:30 pO2 52 mm/Hg (80-100) L 08/02/16 18:30 HCO3 31.9 mmol/L (21-28) H 08/02/16 18:30 ABG pH 7.44 (7.35-7.45) 08/02/16 18:30 ABG Total CO2 36.2 mmol/L (22-28) H 08/02/16 18:30 ABG O2 Saturation 91.3 % (95-98) L 08/02/16 18:30 ABG Base Excess 9.1 mmol/L (-2.0-3.0) H 08/02/16 18:30 ABG Hemoglobin 10.6 g/dL (11.7-17.4) L 08/02/16 18:30 ABG Carboxyhemoglobin 1.7 % (0.5-1.5) H 08/02/16 18:30 POC ABG HHb (Measured) 8.5 % (0.0-5.0) H 08/02/16 18:30 ABG Methemoglobin 0.4 % (0.0-3.0) 08/02/16 18:30 Yahir Test Pos 08/02/16 18:30 A-a O2 Difference 55.0 mm/Hg 08/02/16 18:30 Respiratory Index 1.1 08/02/16 18:30 Hgb O2 Saturation 89.3 % (95.0-98.0) L 08/02/16 18:30 FiO2 24.0 % 08/02/16 18:30 Sodium 138 mmol/L (132-148) 08/09/16 06:16 Potassium 4.6 mmol/L (3.6-5.2) 08/09/16 06:16 Chloride 94 mmol/L (98-107) L 08/09/16 06:16 Carbon Dioxide 34 mmol/L (22-30) H 08/09/16 06:16 Anion Gap 15 (10-20) 08/09/16 06:16 BUN 35 mg/dL (9-20) H 08/09/16 06:16 Creatinine 1.1 MG/DL (0.8-1.5) 08/09/16 06:16 Est GFR ( Amer) > 60 08/09/16 06:16 Est GFR (Non-Af Amer) > 60 08/09/16 06:16 POC Glucose (mg/dL) 166 mg/dL (65-110) H 08/09/16 11:20 Random Glucose 188 mg/dL (75-110) H 08/09/16 06:16 Hemoglobin A1c 6.0 % (4.2-6.5) 08/02/16 23:11 Calcium 7.7 mg/dl (8.6-10.4) L 08/09/16 06:16 Phosphorus 4.8 mg/dL (2.5-4.5) H 08/08/16 06:57 Magnesium 3.0 mg/dL (1.6-2.3) H 08/08/16 06:57 Total Bilirubin 0.9 mg/dL (0.2-1.3) 08/09/16 06:16 AST 41 U/L (17-59) 08/09/16 06:16 ALT 46 U/L (21-72) 08/09/16 06:16 Alkaline Phosphatase 51 U/L (38-126) 08/09/16 06:16 Total Creatine Kinase 98 U/L (55-170) 08/03/16 08:09 CK-MB (Mass) 0.89 ng/mL (0.0-3.38) 08/03/16 08:09 Troponin I 0.0390 ng/mL (0.00-0.120) 08/02/16 18:18 Troponin I, Quant 0.0360 ng/mL (0.00-0.120) 08/03/16 08:09 NT-Pro-B Natriuret Pep 698 pg/mL (0-900) 08/02/16 18:18 Total Protein 6.3 g/dL (6.3-8.3) 08/09/16 06:16 Albumin 3.5 g/dL (3.5-5.0) 08/09/16 06:16 Globulin 2.8 gm/dL (2.2-3.9) 08/09/16 06:16 Albumin/Globulin Ratio 1.3 (1.0-2.1) 08/09/16 06:16 Procalcitonin < 0.05 NG/ML (0.19-0.49) L 08/05/16 19:48 Thyroxine (T4) 5.55 ug/dL (5.5-11.0) 08/02/16 23:11 TSH 3rd Generation 2.02 mIU/L (0.46-4.68) 08/02/16 23:11 Urine Color Yellow (YELLOW) 08/02/16 20:53 Urine Clarity Clear (Clear) 08/02/16 20:53 Urine pH 7.0 (5.0-8.0) 08/02/16 20:53 Ur Specific [place] 1.012 (1.003-1.030) 08/02/16 20:53 Urine Protein Negative mg/dL (NEGATIVE) 08/02/16 20:53 Urine Glucose (UA) Normal mg/dL (Normal) 08/02/16 20:53 Urine Ketones Negative mg/dL (NEGATIVE) 08/02/16 20:53 Urine Blood Negative (NEGATIVE) 08/02/16 20:53 Urine Nitrate Negative (NEGATIVE) 08/02/16 20:53 Urine Bilirubin Negative (NEGATIVE) 08/02/16 20:53 Urine Urobilinogen 2.0 mg/dL (0.2-1.0) 08/02/16 20:53 Ur Leukocyte Esterase Neg [place]/uL (Negative) 08/02/16 20:53 Urine RBC (Auto) < 1 /hpf (0-3) 08/02/16 20:53 Ur Squamous Epith Cells < 1 /hpf (0-5) 08/02/16 20:53 Influenza Typ A,B (EIA) Negative for flu a/b (NEGATIVE) 08/02/16 21:43 Ur L.pneumophila Ag Negative (NEGATIVE) 08/05/16 19:48 Mycoplasma pneumon IgM Negative (NEGATIVE) 08/05/16 19:48 Attending/Attestation - Attestation I have personally seen and examined this patient.: Yes I have fully participated in the care of the patient.: Yes I have reviewed all pertinent clinical information, including history, physical exam and plan: Yes Notes (Text): Patient Seen and examined with the resident. Agree with the resident's evaluation, assessment and plan. Acute Pneumonia/Bronchitis: COPD Exacerbation: Acute CHF Exacerbation: acute on chronic diastolic
--- NOTE | 2016-08-11 07:38 | PCM.HF ---
Heart Failure Core Measure - Heart Failure Ejection Fraction: 40 % or Greater TIRSO Inhibitor Prescribed: No Contraindication/Reason for not providing: on ARB /ef>45 Beta-Saroj Prescribed: None Contraindication/Reason for not providing: was on coreg , d/c secondary to adverse effect /asthma Angiotensin II Receptor Saroj Prescribed: Yes AnticoagulationTherapy for Atrial Fibrillation/Atrialflutter: No Contraindication/Reason for not providing: no hx of afib Aldosterone Antagonist Prescribed: No Contraindication/Reason for not providing: EF>45 Hydralazine Nitrate Prescribed: No Contraindication/Reason for not providing: EF>45 Implantable Cardioverter Defibrillator Therapy: No Contraindication/Reason for not providing: EF>45 Cardiac Resynchronization Therapy Prescribed: No Contraindication/Reason for not providing: EF>45 - Follow up Will be discharged to: Home Follow Up Date (must be within 7 days from discharge): 08/14/16 Follow Up Time: 09:00
== END 2016-08-09 14:40 | disposition home or self-care (01) | DRG 190 ==
LOC: C.ER 17:21 → C.6T 20:58
PROVIDERS: ADMIT Internal Medicine; ATTEND Internal Medicine
PROC: 5A09557 Assistance with Respiratory Ventilation, Greater than 96 Consecutive Hours, Continuous Positive Airway Pressure (ICD-10-PCS; principal; 2016-08-02)
DX: J44.0 Chronic obstructive pulmonary disease with (acute) lower respiratory infection (principal); J18.9 Pneumonia, unspecified organism; I27.2 Other secondary pulmonary hypertension; I11.0 Hypertensive heart disease with heart failure; I50.9 Heart failure, unspecified; I35.0 Nonrheumatic aortic (valve) stenosis; Z95.2 Presence of prosthetic heart valve; J44.1 Chronic obstructive pulmonary disease with (acute) exacerbation; Z95.1 Presence of aortocoronary bypass graft; I25.10 Atherosclerotic heart disease of native coronary artery without angina pectoris; E78.5 Hyperlipidemia, unspecified; Z95.0 Presence of cardiac pacemaker; E03.9 Hypothyroidism, unspecified; M10.9 Gout, unspecified; E55.9 Vitamin D deficiency, unspecified; Z87.891 Personal history of nicotine dependence; E78.00 Pure hypercholesterolemia, unspecified

== ENCOUNTER 2016-12-06 06:57 | Day surgery (SDC) | payer MEDICARE ==
[2016-12-06 07:22] VITALS: BMI 34.7
[2016-12-06] MEDS ORDERED: Lactated Ringer's 500 ML IV ONE (08:40)
[2016-12-06] MEDS ORDERED: Etomidate 20 mg/10ml Inj IV ONE (08:43)
[2016-12-06] MEDS ORDERED: Propofol 10 mg/ml Inj (20 ML) ONE ×2 (08:43→09:29)
--- NOTE | 2016-12-06 08:45 | CP.SDSHP ---
Same Day Surgery H & P - History Proposed Procedure: egd. colonoscopy Pre-Op Diagnosis: fecal occult blood loss. anemia - Previous Medical/Surgical History Cardiac: Hypertension, ASHD/CAD, Valvular Heart Disease Pulmonary: Emphysema/COPD Endocrine/Metabolic: Thyroid Disease, Obesity Previous Surgical History: S/P Bovine AVR (2013). CABG. PTCH. Carotid stent - Allergies Allergies: Allergies No Known Allergies Allergy (Verified 08/02/16 17:53) verified 03/10/2014 - Physical Exam Vital Signs: Vital Signs 12/06/16 07:31 Temperature 96.9 F L Pulse Rate 72 Respiratory 17 Rate Blood Pressure 119/54 L O2 Sat by Pulse 96 Oximetry Mental Status: Alert & Oriented x3 Neuro: WNL Heart: WNL Lungs: WNL GI: WNL - Impression Impression: iron deficiency anemia. fecal occult blood loss Pt. Evaluated Today:Candidate for Anesthesia & Procedure: Yes - Date & Time Date: 12/06/16 Time: 08:45 Short Stay Discharge - Short Stay Discharge Admitting Diagnosis/Reason for Visit: ANEMIA Disposition: HOME/ ROUTINE
[2016-12-06] MEDS ORDERED: Pantoprazole 40 mg EC Tab PO ONE (09:00)
[2016-12-06 14:00] VITALS: BP 152/61; PULSE 63; RESP 24; TEMP 97; O2SAT 100
== END 2016-12-06 10:45 | disposition home or self-care (01) ==
LOC: C.ENDO 06:57
PROVIDERS: ATTEND Internal Medicine Gastroenterology
DX: D50.9 Iron deficiency anemia, unspecified (principal); Z95.2 Presence of prosthetic heart valve; K64.8 Other hemorrhoids; K57.90 Diverticulosis of intestine, part unspecified, without perforation or abscess without bleeding; K21.9 Gastro-esophageal reflux disease without esophagitis; K29.70 Gastritis, unspecified, without bleeding
CPT/HCPCS: 43239; 45378; 88305; 88342; J2001; J2704; J7120

== ENCOUNTER 2018-06-14 08:54 | Outpatient (CLI) | payer MEDICARE | END 2018-06-14 08:55 | disposition home or self-care (01) | LOC: C.CARD 08:54 | DX: Z01.810 Encounter for preprocedural cardiovascular examination (principal); R06.02 Shortness of breath; I50.22 Chronic systolic (congestive) heart failure ==

== ENCOUNTER 2018-06-25 06:36 | Day surgery (SDC) | payer MEDICARE ==
[2018-06-25 06:57] VITALS: BMI 35.0
--- NOTE | 2018-06-25 08:36 | CP.SDSHP ---
<Brandon Pena - Last Filed: 06/25/18 08:33> Same Day Surgery H & P - History Proposed Procedure: EGD Pre-Op Diagnosis: recurrent iron defiency anemia. melena. GERD - Previous Medical/Surgical History Cardiac: Hypertension, ASHD/CAD, Valvular Heart Disease, Hx of CHF, Arrhythmia Pulmonary: Emphysema/COPD - Allergies Allergies: Allergies No Known Allergies Allergy (Verified 04/02/17 10:05) verified 03/10/2014 - Physical Exam General Appearance: alert, oriented, no distress Vital Signs: Vital Signs 06/25/18 07:15 Temperature 97.2 F L Pulse Rate 66 Respiratory 20 Rate Blood Pressure 128/56 L O2 Sat by Pulse 97 Oximetry Mental Status: Alert & Oriented x3 Neuro: WNL Heart: Other (irregular) Lungs: WNL GI: WNL Social History: Smoking - Impression Impression: recurrent iron def anemia. melena. GERD Pt. Evaluated Today:Candidate for Anesthesia & Procedure: Yes - Date & Time Date: 06/25/18 Time: 08:00 Short Stay Discharge - Short Stay Discharge Admitting Diagnosis/Reason for Visit: GERD / MELENA / ACUTE GASTRITIS Disposition: HOME/ ROUTINE <SantoyoFranky - Last Filed: 06/25/18 08:38> Same Day Surgery H & P - Allergies Allergies: Allergies No Known Allergies Allergy (Verified 04/02/17 10:05) verified 03/10/2014 - Physical Exam Vital Signs: Vital Signs 06/25/18 07:15 Temperature 97.2 F L Pulse Rate 66 Respiratory 20 Rate Blood Pressure 128/56 L O2 Sat by Pulse 97 Oximetry Attending/Attestation - Attestation I have personally seen and examined this patient.: Yes I have fully participated in the care of the patient.: Yes I have reviewed all pertinent clinical information: Yes Notes (Text): 06/25/18 08:37 For EGD as outlined to assess Iron deficiency and reported melena/dark stools
[2018-06-25] MEDS ORDERED: Propofol 10 mg/ml Inj (20 ML) ONE (08:38)
[2018-06-25] MEDS ORDERED: Etomidate 20 mg/10ml Inj IV ONE (08:40)
[2018-06-25] MEDS ORDERED: Albuterol HFA 90 mcg/actuation (8 g) ONE (09:01)
[2018-06-25] MEDS ORDERED: Pantoprazole 40 mg EC Tab PO STA ×2 (09:08→09:22)
[2018-06-25 09:31] VITALS: TEMP 96.6
[2018-06-25 11:42] VITALS: BP 112/59; PULSE 80; RESP 19; O2SAT 95
== END 2018-06-25 11:20 | disposition home or self-care (01) ==
LOC: C.ENDO 06:36
PROVIDERS: ATTEND Internal Medicine Gastroenterology
DX: K21.9 Gastro-esophageal reflux disease without esophagitis (principal); K92.1 Melena; K29.00 Acute gastritis without bleeding; D50.9 Iron deficiency anemia, unspecified; K44.9 Diaphragmatic hernia without obstruction or gangrene; K20.9 Esophagitis, unspecified
CPT/HCPCS: 43239; 88305; J2001; J2704